=== PATIENT | male | born 1970 | race Caucasian/White ===

== ENCOUNTER 2021-03-21 09:26 | Emergency (ER) | payer BC, SELFPAY ==
[2021-03-21 09:37] VITALS: BP 129/85; PULSE 65; RESP 15; TEMP 36.8; O2SAT 98
--- NOTE | 2021-03-21 10:00 | DI.RAD_ITS ---
Exam(s) XR SHOULDER RT COMPLETE 2+V EXAM: XR SHOULDER RT COMPLETE 2+V CLINICAL HISTORY: pain. TECHNIQUE: 2D digital imaging was performed. COMPARISON: No exams were available for comparison FINDINGS: BONES: No acute fracture is present. No bony destructive lesion is seen. JOINTS: No dislocation present.Mild periarticular spurring glenohumeral joint and acromioclavicular j oint. SOFT TISSUE: Normal. IMPRESSION: Mild degenerative changes. DATA REPOSITORY: RADIATION DOSE DELIVERED:
--- NOTE | 2021-03-21 10:05 | W.ED.GENAD ---
Discharge Plan Disposition Patient Disposition: HOME Condition: Stable Discharge Details Clinical Impression: Shoulder pain Primary Care Provider: Joe Larsen ED Provider: Manuel Enriquez Home Meds and New Rx's Prescriptions: New naproxen [Naprosyn] 500 mg tablet 500 mg PO BID PRNQty: 10 RF: 0 Continued hydromorphone 2 mg Tablet 2 mg PO Q6H PRNRF: 0 Remicade 100 mg Recon Soln IV Q30D RF: 0 Discharge Instructions Instructions: Shoulder Pain (ED) Additional Instructions: X-ray reveals mild degenerative changes, no acute disease process. Naprosyn as directed. Wear sling as needed, advance activity as tolerated. Be sure to do passive range of motion at least 4 times daily to avoid a frozen shoulder. Cool and/or warm compresses every 2 hours for 20 minutes. Please watch for new or worsening symptoms and return to the ER for any concerns. Please contact the office with Dr. Hess on Tuesday during business hours to discuss your ongoing symptoms and set up outpatient reevaluation. Referrals: Barrera Hess MD [ [facility] STAFF PHYSICIAN] - Medical Decision Making 51-year-old gentleman, [id number], presenting for right shoulder pain over the past 2 weeks after heavy lifting. Neuro, vascular, tendon intact. Patient appears well, nontoxic, afebrile. Examination is certainly consistent with musculoskeletal discomfort. Examination is guarded, makes full assessment difficult. He does have diffuse discomfort across the shoulder worse over the superior and lateral aspect. Differential includes but not excluded to bursitis, calcific tendinitis, internal derangement, rotator cuff tear, etc. Extremely low suspicion for dislocation, acute fracture, DVT, septic joint, etc. Will obtain x-ray and reassess in the meantime will give 60 IM Toradol X-ray reveals only mild degenerative changes, no fracture or dislocation Discussed x-ray findings with patient. Mild relief with Toradol. Discussed options, will apply sling. Patient was instructed with passive range of motion to avoid a frozen shoulder. Will provide prescription for anti-inflammatory therapy. Will provide orthopedic referral. Standard discharge and return precautions given This documentation was generated using DigiFitation system, please disregard any oddities of phrase or misspellings. Imaging Data Radiologic Study: Attestation: I personally reviewed and interpreted this imaging study as follows: Imaging: X-Ray Radiologist's impression: PROCEDURE INFORMATION: Exam: XR Right Shoulder Exam date and time: 03/21/2021 10:06 AM Age: 51 years old Clinical indication: Other: Pain; Patient HX: Patient states no known trauma TECHNIQUE: Imaging protocol: XR Right shoulder. Views: 2 or more views. COMPARISON: No relevant images were readily available for comparison purposes. FINDINGS: Bones/joints: At most mild degeneration of the glenohumeral joint. No acute fracture or dislocation. Soft tissues: unremarkable soft tissues. IMPRESSION: At most mild degeneration of the glenohumeral joint without acute findings. HPI General Mode of arrival: ambulatory. Date/Time Provider Initiated Documentation: 03/21/21 09:28. Limitations to Documentation: no limitations. Information obtained by: patient. HPI Narrative: This is a 51-year-old gentleman, [id number], past medical history of Crohn's disease, anal fissure, presenting to the ER complaining of 1-2-week history of right shoulder pain. Patient states that he has a very high pain tolerance, denies any obvious injury but was lifting multiple heavy objects the day before he noticed his pain began. He states initially lidocaine patches were helping but now his pain has increased over the past 24-48 hours with pain that shoots down his entire arm, tingling, mild swelling, and limited range of motion. Patient took hydromorphone without significant relief. He denies neck pain, true numbness, history of DVT or PE, chest pain, shortness of breath, back pain. Patient reports pain is moderate at rest worse with movement. Related Data Home Medications Medication Instructions Recorded Confirmed Remicade mg IV Q30D 03/21/21 hydromorphone 2 mg PO Q6H PRN 03/21/21 03/21/21 naproxen [Naprosyn] 500 mg PO BID PRN #10 tab 03/21/21 Previous Rx's Medication Instructions Recorded naproxen [Naprosyn] 500 mg PO BID PRN #10 tab 03/21/21 Allergies Allergy/AdvReac Type Severity Reaction Status Date / Time No Known Allergies Allergy Unverified 03/21/21 09:45 General Stated Complaint: Orthopedic ROCAEL: 3 Review of Systems Constitutional Constitutional: Denies fever(s) and Denies headache(s) ENT Ears, Nose, Mouth, and Throat: Denies headache(s) and Denies neck pain Cardiovascular Cardiovascular: Denies chest pain and Denies dyspnea Respiratory Respiratory: Denies cough and Denies dyspnea Gastrointestinal Gastrointestinal: Denies abdominal pain, Denies nausea and Denies vomiting Musculoskeletal Musculoskeletal: Denies deformity, Reports arthralgias, Denies neck pain, Denies numbness, Reports stiffness and Reports tingling Integumentary/Breasts Skin/Breast: Denies rash Neurologic Neurologic: Denies headache(s), Denies numbness and Reports tingling [facility] Social History Smoking/Tobacco Use Status: Current every day Smoking risk assessment performed?: Yes Alcohol Intake: current Alcohol Intake frequency: a few times a week Alcohol type: beer, wine and hard liquor Drug use: Never Substance use type: does not use Do you feel safe at home: Yes Do you feel safe in your relationship?: Yes Exam Const General: cooperative, healthy appearing, comfortable and no acute distress Orientation: alert and awake [facility] Head: normal to inspection, normocephalic and atraumatic Eyes General: appearance normal, both eyes and all related structures Conjunctivae: conjunctivae normal Neck Neck: normal visual inspection, full ROM, trachea midline, supple and nontender Resp Effort & Inspection: normal respiratory effort and able to speak in complete sentences Auscultation: clear to auscultation bilaterally Cardio Rate: regular rate Rhythm: regular rhythm Back/Spine/Pelvis Back: no CVA tenderness and No back tenderness Skin General skin exam: no rashes or lesions noted Neuro General: patient alert, patient awake, moves all extremities and no focal motor deficits Cognition: normal cognition Speech: speech normal Gait: normal gait Motor: muscle tone normal throughout Sensory Exam: no sensory deficits noted Extrem General: normal to inspection and capillary refill normal Other: Right shoulder normal inspection. No obvious swelling, erythema or ecchymosis. There is diffuse superior and lateral discomfort. Shoulder is held in adduction. Limited range of motion in all directions secondary to increased discomfort. Normal radial pulse, normal capillary refill. Bicep, elbow, forearm, hand and wrist unremarkable. 5 out of 5 strength. Neuro, vascular, tendon intact. Psych Appearance: grossly normal Mental Status: mental status grossly normal Course Vital Signs Vital signs: Vital Signs Temperature 36.8 C 03/21/21 09:37 Pulse 65 09/04/21 09:37 Respiratory Rate 15 03/21/21 09:37 Blood Pressure 129/85 03/21/21 09:37 Pulse Oximetry 98 03/21/21 09:37 Temperature 36.8 C 03/21/21 09:37 Temperature Source Temporal Artery Scan 03/21/21 09:37 Pulse 65 03/21/21 09:37 Respiratory Rate 15 03/21/21 09:37 Respiratory Effort Non-Labored 03/21/21 09:43 Blood Pressure 129/85 03/21/21 09:37 Blood Pressure Position Sitting 03/21/21 09:37 Pulse Oximetry 98 03/21/21 09:37 Oxygen Delivery Method Room Air 03/21/21 09:37 Oxygen Flow Rate 0 03/21/21 09:37 Pain Level 10 03/21/21 09:48
[2021-03-21] MEDS: Ketorolac 60 MG/2 ML VIAL IM (10:19)
--- NOTE | 2021-03-21 10:49 | DI.[facility]_ITS ---
PROCEDURE INFORMATION: Exam: XR Right Shoulder Exam date and time: 03/21/2021 10:06 AM Age: 51 years old Clinical indication: Other: Pain; Patient HX: Patient states no known trauma TECHNIQUE: Imaging protocol: XR Right shoulder. Views: 2 or more views. COMPARISON: No relevant images were readily available for comparison purposes. FINDINGS: Bones/joints: At most mild degeneration of the glenohumeral joint. No acute fracture or dislocation. Soft tissues: unremarkable soft tissues. IMPRESSION: At most mild degeneration of the glenohumeral joint without acute findings. Dictated and Authenticated by: Simón Kendall MD. Ordering:JUAN A Jackson MD
== END 2021-03-21 11:19 | disposition home or self-care (01) ==
PROVIDERS: Emergency Provider Physician Assistant; PCP Internal Medicine
DX: M25.511 Pain in right shoulder (principal)
CPT/HCPCS: 96372; 99284; 73030; 99283; J1885

== ENCOUNTER 2024-12-31 21:43 | Inpatient (IN) | payer BC, SELFPAY ==
[2024-12-31] VITALS (9 sets, daily range): BP systolic 135–147; BP diastolic 76–111; PULSE 63–82; RESP 20; TEMP 36.8; O2SAT 94–97
--- NOTE | 2024-12-31 22:15 | DI.CT_ITS ---
Exam(s) CT THORAX ABD/PEL CTA EXAM: CT THORAX ABD/PEL CTA CLINICAL HISTORY: eval for dissection, severe upper abd pain to back. TECHNIQUE: Imaging Protocol: Axial CT angiography was performed with multi- slice acquisition and multi-planar and/or 3D reconstructions. Lung Computer Aided Detection (CAD) was utilized. CONTRAST MATERIAL: Intravenous: Omnipaque 350 contrast volume:100 mL Oral: No COMPARISON: No exams were available for comparison FINDINGS: CHEST: Tracheobronchial tree: Patent where visualized. There is no evidence of bronchiectasis. Pulmonary parenchyma: There is a calcified granuloma in the left lower lobe. There is no focal consolidation. Atelectatic changes are seen in the dependent portions of the lungs. There are no suspicious pulmonary nodules. No architectural distortion. Pulmonary Arteries: No evidence of filling defect to suggest pulmonary emboli. Mediastinum and Brianne: No dominant adenopathy or fluid collection. The esophagus is unremarkable. Visualized thyroid: Unremarkable. Pleura: No effusion or pneumothorax. Heart: The heart is not dilated. No coronary artery calcifications are seen. No pericardial effusion. Aorta: Thoracic aorta non-dilated. There is no evidence of dissection. Soft Tissues: Unremarkable. Bones: Within normal limits for the patient's age.There is an area of sclerosis seen in the medial aspect of the left iliac bone. There is also sclerosis seen the left 4th rib. ABDOMEN AND PELVIS: Abdomen: Celiac axis/mesenteric arteries: No evidence of occlusion or significant stenosis. Renal Arteries: No evidence of occlusion or significant stenosis. Minimal atherosclerotic calcification at the origin of the left renal artery. Aorta: No evidence of occlusion or significant stenosis. No aneurysm or dissection. Mild atherosclerotic calcification. Pelvis: Iliac Arteries: No evidence of occlusion or significant stenosis. Mild atherosclerotic calcification is present. Common Femoral Arteries: No evidence of occlusion or significant stenosis. Mild atherosclerotic calcification is present. ABDOMEN: Liver: Normal density. No measurable mass. Portal, superior mesenteric and splenic veins: Unremarkable. Gallbladder and Biliary Tract: No radiodense calculus or dilation. Pancreas: Normal density, no abnormal calcifications or inflammatory process. Spleen: Normal. Adrenals: No masses seen. Kidneys: Normal size, contour and axis. No radiodense stones or obstructive uropathy. There is a 1.9 cm simple cyst in the right kidney. No follow-up is recommended. Bowel: There is diverticulosis seen in the colon without evidence of acute diverticulitis. There is dilatation of the small bowel with air-fluid levels to the level of the distal ileum. There is also distention of the stomach. The terminal ileum is of normal caliber. There is question of mild wall thickening at the transition. The colon is of normal caliber. No evidence of appendicitis is seen. There is no pneumatosis. Peritoneal Cavity: No ascites, collection or mesenteric inflammatory response. No free air. Lymph Nodes: Within normal limits. Bones: Within normal limits for the patient's age. Soft Tissues: There are small bilateral fat containing inguinal hernias. PELVIS: Bladder: The bladder is incompletely distended. There is apparent thickening of the wall of the urinary bladder. This may be due to incomplete distension but finding such as cystitis or chronic bladder outlet obstruction cannot be excluded. Please correlate clinically. Reproductive Organs: Unremarkable as visualized. Lymph Nodes: Within normal limits. Bones: Within normal limits for the patient's age. IMPRESSION: 1. Findings consistent with a small-bowel obstruction. The transition point is just proximal to the terminal ileum in the right lower quadrant. 2. No evidence of a pulmonary embolism, thoracic aortic aneurysm or dissection. 3. No acute pulmonary process. 4. No evidence of an abdominal aortic aneurysm or dissection. 5. Areas of sclerosis involving a left rib and the left iliac bone. Please correlate with patient's history. A bone scan may should be considered for further evaluation. 6. The preliminary [facility] report was reviewed. Unexpected findings RADIATION DOSE DELIVERED: 1,271.95mGy.cm Total DLP DATA REPOSITORY: All CT scans at this facility are submitted to the National Radiology Data Registry (NRDR) Dose Index Registry (DIR) with the [employer] (A[employer]). RADIATION OPTIMIZATION: All CT scans at this facility use at least one of these dose optimization techniques: automated exposure control; mA and/or kV adjustment per patient size (includes targeted exams where dose is matched to clinical indication); or iterative reconstruction.
[2024-12-31 22:36] LABS: Abs Immature Grans 0.06 10^3/uL (0.0-0.06); Absolute Basophil Count 0.06 10^3/uL (0.0-0.2); Absolute Lymphocyte Count 2.13 10^3/uL (1.2-3.4); Absolute Monocyte Count 0.96 10^3/uL (0.1-0.8); Absolute Neutrophil Count 8.67 10^3/uL (1.2-6.7); Basophils % 0.5 %; Eosinophils % 0.8 %; Immature Grans % 0.5 %; Lymphocytes % 17.8 %; MCH 30.1 pg (27.0-33.0); MCHC 33.3 % (32.0-36.0); MCV 90 fL (80-95); MPV 10.7 fL (8.0-11.0); Neutrophils % 72.4 %; Platelet Count 238 10^3/uL (130-400); RBC 4.98 10^6/uL (4.36-5.78); RDW 12.6 % (11.8-14.1); RDW-SD 41.6 fL; WBC 11.97 10^3/uL (4.4-10.8)
[2024-12-31 22:45] LABS: PTT Activated 25.3 sec (20.6-30.2); Prothrombin Time 9.6 sec (9.1-11.1)
[2024-12-31] MEDS: Normal Saline Flush 10 ML SYR IVP (22:49)
[2024-12-31 22:50] LABS: ALT 26 U/L (16-63); AST 13 U/L (15-37); Albumin 3.9 g/dL (3.4-5.0); Alkaline Phosphatase 94 U/L (46-116); Anion Gap 9.4 mmol/L (3-11); BUN 19 mg/dL (7-18); Bilirubin, Total 0.3 mg/dL (0.2-1.0); CO2 25.6 mmol/L (21.0-32.0); Calcium 9.4 mg/dL (8.5-10.1); Chloride 101 mmol/L (98-107); Glucose 118 mg/dL (74-106); Lipase 17 U/L (<78); Potassium 4.3 mmol/L (3.5-5.1); Sodium 136 mmol/L (136-145); Total Protein 8.7 g/dL (6.4-8.2)
[2024-12-31] MEDS: Normal Saline - Diluent 50 ML VIAL IJ (22:50)
[2024-12-31] MEDS: Omnipaque 350 MG/ML 100 ML BTL IJ (22:50)
[2024-12-31 22:51] LABS: Lactate 1.3 mmol/L (<or=2.0)
[2024-12-31] MEDS: Ondansetron 4 MG/2 ML VIAL IVP (23:01)
[2024-12-31] MEDS: fentaNYL 100 MCG/2 ML VIAL 50 MCG IVP (23:01)
[2025-01-01] VITALS (21 sets, daily range): BP systolic 124–147; BP diastolic 78–89; PULSE 62–86; RESP 16–18; TEMP 36.8–37.4; O2SAT 94–98
--- NOTE | 2025-01-01 00:22 | W.ED.GENAD ---
Discharge Plan Disposition Patient Disposition: Admit to [facility] Condition: Serious Discharge Details Clinical Impression: Partial obstruction of small intestine Primary Care Provider: Joe Larsen ED Provider: Key Cartagena Home Meds and New Rx's Prescriptions: No Action infliximab [Remicade] 100 mg Recon Soln 1,100 mg IV Q30D naproxen [Naprosyn] 500 mg tablet 500 mg PO BID PRNQty: 10 0RF HPI General Date/Time Provider Initiated Documentation: 12/31/24 22:13. Limitations to Documentation: no limitations. Information obtained by: patient and family. HPI Narrative: 54yo M with hx of Crohns presenting with severe upper abdominal pain radiating into his back. Symptoms started around 9pm this evening and have been worsening. Pain is sharp, stabbing, and comes in waves. Nausea, vomitted x 1 nonbloody nonbilious. Normal bowel movement earlier today. No numbness, tingling, or weakness to his upper extremities. No chest pain or shortness of breath. Otherwise in his usual state of health with no fevers, chills, rash, dysuria, hematuria, or other concerns. Related Data Home Medications ?Medication ?Instructions ?Recorded ?Confirmed infliximab 100 mg intravenous 1,100 mg IV Q30D 03/21/21 12/31/24 solution (Remicade) naproxen 500 mg tablet (Naprosyn) 500 mg PO BID PRN #10 tabs 03/21/21 12/31/24 Previous Rx's ?Medication ?Instructions ?Recorded naproxen 500 mg tablet (Naprosyn) 500 mg PO BID PRN #10 tabs 03/21/21 Allergies Allergy/AdvReac Type Severity Reaction Status Date / Time No Known Allergies Allergy Unverified 12/31/24 21:52 General Stated Complaint: Abd Prob ROCAEL: 3 Review of Systems Narrative: see HPI Exam Narrative Exam Narrative: General: Alert, distressed Head: Normocephalic, atraumatic Neck: Trachea midline, ?Neck supple. ENT: ?MMM.? Cardiac: ?RRR, no murmurs appreciated Resp: No respiratory distress. CTAB. Abd: ?Soft, protruberent, diffusely tender to palpation worst in upper abdomen. : ?No suprapubic tenderness. No CVA tenderness. Extremities: No peripheral edema. Neurologic: GCS 15. ? Moves all extremities freely against gravity Course Vital Signs Vital signs: Vital Signs Temperature 36.8 C 12/31/24 21:47 Pulse 82 12/31/24 21:47 Respiratory Rate 12/31/24 21:47 Blood Pressure 147/111 H 12/31/24 21:47 Pulse Oximetry 96 12/31/24 21:47 Temperature 36.8 C 12/31/24 21:51 Pulse 82 12/31/24 21:51 Respiratory Rate 20 12/31/24 21:51 Blood Pressure 147/111 H 12/31/24 21:51 Blood Pressure Position Sitting 12/31/24 21:51 Pulse Oximetry 96 12/31/24 21:51 Oxygen Delivery Method Room Air 12/31/24 21:51 Oxygen Flow Rate 0 12/31/24 21:51 Pain Level 12/31/24 23:11 Lab/Test Results Lab/Test Results: Laboratory Tests Range/Units 12/31/24 12/31/24 12/31/24 22:05 22:05 22:25 WBC (4.4-10.8) 10^3/uL 11.97 H RBC (4.36-5.78) 10^6/uL 4.98 Hgb (13.5-17.5) g/dL 15.0 Hct (40.0-50.0) % 45.0 MCV (80-95) fL 90 MCH (27.0-33.0) pg 30.1 MCHC (32.0-36.0) % 33.3 RDW (11.8-14.1) % 12.6 Plt Count (130-400) 10^3/uL 238 MPV (8.0-11.0) fL 10.7 Immature Gran % % 0.5 Neutrophils % % 72.4 Lymphocytes % % 17.8 Monocytes % % 8.0 Eosinophils % % 0.8 Basophils % % 0.5 Nucleated RBC % (0.0-0.3) % 0.0 Absolute Neutrophils (1.2-6.7) 10^3/uL 8.67 H Absolute Lymphocytes (1.2-3.4) 10^3/uL 2.13 Absolute Monocytes (0.1-0.8) 10^3/uL 0.96 H Absolute Eosinophils (0.0-0.7) 10^3/uL 0.10 Absolute Basophils (0.0-0.2) 10^3/uL 0.06 PT (9.1-11.1) sec 9.6 INR (0.9-1.1) 1.0 APTT (20.6-30.2) sec 25.3 VBG Lactate (<or=2.0) mmol/L 1.3 Sodium (136-145) mmol/L 136 Potassium (3.5-5.1) mmol/L 4.3 Chloride (98-107) mmol/L 101 Carbon Dioxide (21.0-32.0) mmol/L 25.6 Anion Gap (3-11) mmol/L 9.4 BUN (7-18) mg/dL 19 H Creatinine (0.70-1.30) mg/dL 1.0 Est GFR (CKD-EPI 2020) (mL/min/1.73m2) 90.00 Glucose (74-106) mg/dL 118 H Calcium (8.5-10.1) mg/dL 9.4 Magnesium (1.8-2.4) mg/dL 2.0 Cancelled Total Bilirubin (0.2-1.0) mg/dL 0.3 AST (15-37) U/L 13 L ALT (16-63) U/L 26 Alkaline Phosphatase (46-116) U/L 94 Total Protein (6.4-8.2) g/dL 8.7 H Albumin (3.4-5.0) g/dL 3.9 Lipase (<78) U/L 17 Medical Decision Making 54yo M with hx Crohn's, on infusion therapy, presetning for severe upper abdominal pain radiating into his back. Emesis x1. Vital signs reassuring on arrival. Diffuse abdominal tenderness on exam, severe in the upper abdomen, no rebound or guarding. Given fentanyl and zofran for symptoms while awaiting results of workup -CBC with mild leukocytosis at 11, CMP with no actionable abnormalities, Mg normal, coags normal, lactate reassuring at 1.3, lipase not suggestive of pancreatitis. -EKG SR, no ST segment or T wave abnormalities to suggest occlusive MN -CTA independently reviewed, no aortic dissection or aneurysm on my view; discussed with [facility] reading radiologist and agree with read below with partial small bowel obstruction. NG tube ordered and pt discussed with on-call surgeon Raine who agrees with medicine admission. Discussed with [facility] hospitalist who accepts patient for further workup and management. Awaiting admission orders and transfer to the floor. Imaging Data Radiologic Study: Imaging: CT Scan Radiologist's impression: IMPRESSION: 1. No evidence of pulmonary embolus. 2. No evidence of aortic aneurysm, dissection or penetrating ulcer. 3. Multiple moderately distended loops of small bowel in the mid abdomen with air-fluid levels consistent with partial small bowel obstruction. The point of transition is in the distal ileum. 4. Additional non emergent findings are stated in the body of the report. Lab Data Lab results reviewed: Yes I reviewed the patient's lab results. Labs: Laboratory Tests Range/Units 12/31/24 12/31/24 12/31/24 22:05 22:05 22:25 WBC (4.4-10.8) 10^3/uL 11.97 H RBC (4.36-5.78) 10^6/uL 4.98 Hgb (13.5-17.5) g/dL 15.0 Hct (40.0-50.0) % 45.0 MCV (80-95) fL 90 MCH (27.0-33.0) pg 30.1 MCHC (32.0-36.0) % 33.3 RDW (11.8-14.1) % 12.6 Plt Count (130-400) 10^3/uL 238 MPV (8.0-11.0) fL 10.7 Immature Gran % % 0.5 Neutrophils % % 72.4 Lymphocytes % % 17.8 Monocytes % % 8.0 Eosinophils % % 0.8 Basophils % % 0.5 Nucleated RBC % (0.0-0.3) % 0.0 Absolute Neutrophils (1.2-6.7) 10^3/uL 8.67 H Absolute Lymphocytes (1.2-3.4) 10^3/uL 2.13 Absolute Monocytes (0.1-0.8) 10^3/uL 0.96 H Absolute Eosinophils (0.0-0.7) 10^3/uL 0.10 Absolute Basophils (0.0-0.2) 10^3/uL 0.06 PT (9.1-11.1) sec 9.6 INR (0.9-1.1) 1.0 APTT (20.6-30.2) sec 25.3 VBG Lactate (<or=2.0) mmol/L 1.3 Sodium (136-145) mmol/L 136 Potassium (3.5-5.1) mmol/L 4.3 Chloride (98-107) mmol/L 101 Carbon Dioxide (21.0-32.0) mmol/L 25.6 Anion Gap (3-11) mmol/L 9.4 BUN (7-18) mg/dL 19 H Creatinine (0.70-1.30) mg/dL 1.0 Est GFR (CKD-EPI 2020) (mL/min/1.73m2) 90.00 Glucose (74-106) mg/dL 118 H Calcium (8.5-10.1) mg/dL 9.4 Magnesium (1.8-2.4) mg/dL 2.0 Cancelled Total Bilirubin (0.2-1.0) mg/dL 0.3 AST (15-37) U/L 13 L ALT (16-63) U/L 26 Alkaline Phosphatase (46-116) U/L 94 Total Protein (6.4-8.2) g/dL 8.7 H Albumin (3.4-5.0) g/dL 3.9 Lipase (<78) U/L 17 PFSH All Active Problems (Updated 01/01/25 @ 01:30 by Key Cartagena MD) Partial obstruction of small intestine (Acute) Rotator cuff tear, right (Acute) Shoulder pain (Acute) Social History Smoking/Tobacco Use Status: Current every day Smoking risk assessment performed?: Yes Alcohol Intake: current Alcohol Intake frequency: a few times a week Alcohol type: beer, wine and hard liquor Drug use: Never Substance use type: does not use Do you feel safe at home: Yes Do you feel safe in your relationship?: Yes PAWSS Have you Been Recently Intoxicated or Drunk Within the Last 30 days?: No Have you Ever Experienced Previous Episodes of Alcohol Withdrawal?: No Have you ever Experienced Withdrawal Seizures?: No Have you ever Experienced Delirium Tremens(DT)s?: No Have you ever undergone Alcohol Rehabilitation Treatment (i.e, inpt ot outpatient treatment programs)?: No Have you ever Experienced Blackouts?: No Have you ever Combined Alcohol with other Downers within the last 90 days?: No Have you ever Combined Alcohol with any other Substance of Abuse during the last 90 days?: No Positive Blood Alcohol level on Presentation? [PCS.BAL]: No Evidence of Increased Autonomic Activity (i.e. HR>120, tremor, sweating, agitation, nausea)?: No Result: 0
--- NOTE | 2025-01-01 00:32 | DI.VRAD_ITS ---
PROCEDURE INFORMATION: Exam: CTA Chest With Contrast CTA Abdomen and Pelvis With Contrast Exam date and time: 12/31/2024 10:47 PM Age: 54 years old Clinical indication: Abdominal pain; Localized; Eval for dissection, severe upper abd pain to back TECHNIQUE: Imaging protocol: Computed tomographic angiography of the chest with contrast. Exam focused on the arteries. Computed tomographic angiography of the abdomen and pelvis with contrast. Exam focused on the arteries. 3D rendering (Not supervised by radiologist): MIP and/or 3D reconstructed images were created by the technologist. Radiation optimization: All CT scans at this facility use at least one of these dose optimization techniques: automated exposure control; mA and/or kV adjustment per patient size (includes targeted exams where dose is matched to clinical indication); or iterative reconstruction. Contrast material: OMNIPAQUE 350; Contrast volume: 100 ml; Contrast route: INTRAVENOUS (IV); COMPARISON: CR XR SHOULDER RT COMPLETE 2+V 10/24/2020 10:24 FINDINGS: VASCULATURE: Pulmonary arteries: Normal. No pulmonary emboli. Aorta: No aortic aneurysm. No aortic dissection or penetrating ulcer. Celiac trunk and mesenteric arteries: No occlusion or significant stenosis. Renal arteries: Mild stenosis at the origin of the left main renal artery. Widely patent right main renal artery. Right iliac arteries: Mild stenosis. Left iliac arteries: Mild stenosis. CHEST: Lungs: No consolidation. No masses. Mild bibasilar atelectatic changes. The Pleural spaces: Unremarkable. No pneumothorax. No pleural effusion. Heart: Unremarkable. No cardiomegaly. No pericardial effusion. ABDOMEN AND PELVIS: Liver: No mass. Gallbladder and biliary ducts: Unremarkable. No calcified stones. No ductal dilation. Pancreas: Unremarkable. No mass. No ductal dilation. Spleen: Unremarkable. No splenomegaly. Adrenal glands: Unremarkable. No mass. Kidneys and ureters: Unremarkable. No solid mass. No hydronephrosis. Stomach and bowel: The stomach is mildly distended with an air-fluid level. Multiple moderately distended loops of small bowel in the mid abdomen with air-fluid levels consistent with mechanical obstruction. The point of transition is in the distal ileum (axial series 8, images 82 - 93; coronal series 12, images 53- 61). There is some gas and stool throughout the colon without distension. There is mild diverticulosis of the distal colon without acute diverticulitis. Appendix: No evidence of appendicitis. Intraperitoneal space: Unremarkable. No free air. No significant fluid collection. Urinary bladder: Unremarkable. No mass. Reproductive: There are small bilateral nonobstructing inguinal hernias containing adipose tissue. Lymph nodes: Nonenlarged common nonspecific mesenteric lymph nodes in the right hemipelvis the. Bones/joints: No acute fracture. Posterior osteophytes at L3-L4, L4-L5 and L5-S1 with moderate left neural foraminal narrowing. At L3-L4, there is a central posterior disc osteophyte complex without severe central spinal canal stenosis. Osteoarthritis of both hips. Soft tissues: There are small bilateral nonobstructing inguinal hernias containing adipose tissue. IMPRESSION: 1. No evidence of pulmonary embolus. 2. No evidence of aortic aneurysm, dissection or penetrating ulcer. 3. Multiple moderately distended loops of small bowel in the mid abdomen with air-fluid levels consistent with partial small bowel obstruction. The point of transition is in the distal ileum. 4. Additional non emergent findings are stated in the body of the report. The bladder demonstrates diffuse wall thickening. Impression new. Bladder wall thickening suggesting chronic outlet obstruction. THIS REPORT CONTAINS FINDINGS THAT MAY BE CRITICAL TO PATIENT CARE. The findings were verbally communicated via telephone conference with EL MCCALLUM at 12:27 AM EDT on 01/01/2025. The findings were acknowledged and understood. Dictated and Authenticated by: Adrián Goldsmith MD. Orderin Osiel Mackey MD
--- NOTE | 2025-01-01 00:59 | DI.RAD_ITS ---
Exam(s) XR PORTABLE CHEST AP POST LINE EXAM: XR PORTABLE CHEST AP POST LINE CLINICAL HISTORY: post line (ng) TECHNIQUE: 2D digital imaging was performed of the chest. One image was obtained. An AP view was obtained. COMPARISON: No exams were available for comparison FINDINGS: The lung apex is not included on this examination. MEDIASTINUM: Normal. HEART: Normal. PULMONARY VASCULATURE: Normal. LUNGS: Clear. PLEURAL SPACE: No pleural effusion or pneumothorax. BONE:Within normal limits for the patient's age. OTHER FINDINGS:There is an enteric tube in place. The tip is in good position in the stomach. There are dilated loops of small bowel in the abdomen suggesting small bowel obstruction. IMPRESSION: The tip of the enteric tube is in appropriate position in the stomach. DATA REPOSITORY: RADIATION DOSE DELIVERED:
[2025-01-01] MEDS: fentaNYL 100 MCG/2 ML VIAL 50 MCG IVP (01:12)
[2025-01-01] MEDS: Normal Saline 1,000 ML 150 ML IV (01:13)
--- NOTE | 2025-01-01 01:15 | RT.EKG_ITS ---
APPROVED REPORT Exam: Resting ECG Reason for Exam: upper abdominal pain Patient Location: E HR:63 bpm ECG Measurements Heart Rate 63 AXIS WV 167 P 38 QRSd 100 QRS 34 QT 386 T 29 QTc 396 Conclusion Sinus rhythm...normal P axis, V-rate 60- 99 ST elev, probable normal early repol pattern...ST elevation, age<[address] segment or T wave abnormalities to suggest occlusive [place]
--- NOTE | 2025-01-01 02:01 | W.PM.HP.N ---
Date of service: 01/01/25 Time of Service: 02:01 Assessment and Plan Assessment and plan (1) Partial obstruction of small intestine: Status: Acute Assessment and plan: 54 yo male with hx of Crohn's, multiple laparoscopic procedures per his report, no open abdominal surgery, now with partial SBO although CT does describe a transition point, he has no bowel sounds and his abdomen is quite firm. NG placed in ED with 400-500 cc output. ED provider discussed the case with general surgery who reportedly are aware of his history and recommended admission to hospitalist service. -will of course be NPO with maintenance IVF and continue NG -does not take any routine prescription medications on a daily basis -leukocytosis likely related to obstruction with no other indication of infection including no mention of colitis on CT, repeat CBC this AM -no pharmacologic VTE prophylaxis as may need procedure History of Present Illness Narrative: 54 yo male with history of Crohn's, longstanding GI issues with multiple admissions related to IBD per his report including intra-abdominal fistulas. He presented to the ED with severe abdominal pain and vomiting today. He is in the process of having his care transferred from [facility] to [facility] as he has been admitted to the hospital many times with ongoing complications and felt [facility] would better manage his IBD. He has been evaluated at and is in contact with the GI doctors there, they apparently have been directing his remicade infusions and increased the dose on his last infusion which was this past Tuesday. Within a few hours he had significant abdominal pain, no vomting, his belly felt tight, but this passed within 4-5 hours and he felt well over the weekend. He was feeling normal Tuesday morning, had a normal BM and went to work. He had a breakfast sandwich late AM. Around 9:30-10 he started to have severe pain and his belly again felt, tight, to the point where he did not want to eat lunch. After work the pain started to get worse and ultimately he started vomiting, that prompted him to seek care in the ED. No blood in stool or vomit. Not passing gas since arriving in the ED. No fever and he has not been ill in any other way. All other ROS is negative. PFSH All Active Problems (Updated 01/01/25 @ 01:30 by Key Cartagena MD) Partial obstruction of small intestine (Acute) Rotator cuff tear, right (Acute) Shoulder pain (Acute) Social History Smoking/Tobacco Use Status: Current every day Smoking risk assessment performed?: Yes Alcohol Intake: current Alcohol Intake frequency: a few times a week Alcohol type: beer, wine and hard liquor Drug use: Never Substance use type: does not use Do you feel safe at home: Yes Do you feel safe in your relationship?: Yes Meds Allergies and Home Medications Allergies Allergy/AdvReac Type Severity Reaction Status Date / Time No Known Allergies Allergy Unverified 12/31/24 21:52 Home Medications ?Medication ?Instructions ?Recorded ?Confirmed ?Type infliximab 100 mg intravenous 1,100 mg IV Q30D 03/21/21 12/31/24 History solution (Remicade) naproxen 500 mg tablet (Naprosyn) 500 mg PO BID PRN #10 tabs 03/21/21 12/31/24 Rx Exam Const General: healthy appearing Resp Auscultation: clear to auscultation bilaterally Cardio Rate: regular rate Rhythm: regular rhythm GI Palpation: rigid Auscultation: absent bowel sounds Neuro General: no focal motor deficits Psych Mental Status: mental status grossly normal Results Labs 12/31/24 22:05 12/31/24 22:05 Labs: Laboratory Results - last 24 hr 12/31/24 12/31/24 12/31/24 22:05 22:05 22:25 WBC 11.97 H RBC 4.98 Hgb 15.0 Hct 45.0 MCV 90 MCH 30.1 MCHC 33.3 RDW 12.6 Plt Count 238 MPV 10.7 Immature Gran % 0.5 Neutrophils % 72.4 Lymphocytes % 17.8 Monocytes % 8.0 Eosinophils % 0.8 Basophils % 0.5 Nucleated RBC % 0.0 Absolute Neutrophils 8.67 H Absolute Lymphocytes 2.13 Absolute Monocytes 0.96 H Absolute Eosinophils 0.10 Absolute Basophils 0.06 PT 9.6 INR 1.0 APTT 25.3 VBG Lactate 1.3 Sodium 136 Potassium 4.3 Chloride 101 Carbon Dioxide 25.6 Anion Gap 9.4 BUN 19 H Creatinine 1.0 Est GFR (CKD-EPI 2020) 90.00 Glucose 118 H Calcium 9.4 Magnesium 2.0 Cancelled Total Bilirubin 0.3 AST 13 L ALT 26 Alkaline Phosphatase 94 Total Protein 8.7 H Albumin 3.9 Lipase 17 Last Vital Signs Temp 36.8 C 12/31/24 21:51 Pulse 73 01/01/25 01:30 Resp 20 12/31/24 21:51 BP 144/85 H 01/01/25 00:31 Pulse Ox 96 01/01/25 01:30 PAWSS Have you Been Recently Intoxicated or Drunk Within the Last 30 days?: No Have you Ever Experienced Previous Episodes of Alcohol Withdrawal?: No Have you ever Experienced Withdrawal Seizures?: No Have you ever Experienced Delirium Tremens(DT)s?: No Have you ever undergone Alcohol Rehabilitation Treatment (i.e, inpt ot outpatient treatment programs)?: No Have you ever Experienced Blackouts?: No Have you ever Combined Alcohol with other Downers within the last 90 days?: No Have you ever Combined Alcohol with any other Substance of Abuse during the last 90 days?: No Positive Blood Alcohol level on Presentation? [PCS.BAL]: No Evidence of Increased Autonomic Activity (i.e. HR>120, tremor, sweating, agitation, nausea)?: No Result: 0 Time Spent Time spent with Patient: 55-74 minutes Time was spent: preparing to see the patient(eg.review tests), obtaining and/or reviewing separately otained hiistory, ordering medications,tests, procedures and indepentently interpreting results
--- NOTE | 2025-01-01 02:17 | DI.VRAD_ITS ---
PROCEDURE INFORMATION: Exam: XR Chest Exam date and time: 01/01/2025 1:14 AM Age: 54 years old Clinical indication: Device placement; Ng tube placement TECHNIQUE: Imaging protocol: Radiologic exam of the chest. Views: 1 view. COMPARISON: No relevant prior studies are available for comparison. FINDINGS: Tubes, catheters and devices: Nasogastric tube terminates in the expected location of the stomach. Gastrointestinal tract: Gaseous distension of the stomach. Multiple gas-filled dilated small bowel loops identified in the visualized abdomen. IMPRESSION: 1. Nasogastric tube as above. 2. Dilated gas-filled small bowel loops suggesting obstruction. Dictated and Authenticated by: Rufina Wong MD. Orderin Osiel Mackey MD
--- NOTE | 2025-01-01 02:19 | W.PC.ACHO ---
Registration Status: REG ER Primary Language: Preferred Language: ED Information & Data Chief Complaint Abd Prob 01/01/25 00:23 Triage Note 10 of 10 stabbing pain in 12/31/24 21:47 upper abd starting today. Hx of chrones. Ate a burger last night. Pain improved with belching. Firm upper abd. Most Recent Vital Signs Temperature 36.8 C 12/31/24 21:51 Pulse 62 01/01/25 02:10 Respiratory Rate 20 12/31/24 21:51 Blood Pressure 144/85 H 01/01/25 00:31 Blood Pressure Mean 128 01/01/25 01:01 Blood Pressure Position Sitting 12/31/24 21:51 Pulse Oximetry 94 01/01/25 02:10 Oxygen Delivery Method Room Air 12/31/24 21:51 Oxygen Flow Rate 0 12/31/24 21:51 Pain Level 10 12/31/24 23:11 Allergies No Known Allergies Allergy (Unverified 12/31/24 21:52) Active Medications Generic Name Dose Route Start Last Admin Trade Name Freq PRN Reason Stop Dose Admin Sodium Chloride 1,000 mls @ 150 mls/hr 01/01/25 00:45 01/01/25 01:13 Saline 1000ml Bag IV 150 mls/hr INFUSION CIELO Administration Iohexol 100 ml 12/31/24 23:00 12/31/24 22:50 Omnipaque 350 Mg/Ml 100 Ml Btl IJ 01/30/25 23:59 100 ml DIRECTED CIELO Administration Sodium Chloride 0 ml 12/31/24 22:49 12/31/24 22:49 Normal Saline Flush 10 Ml Syr IVP 10 ml PRN PRN Administration Sodium Chloride 50 ml 12/31/24 23:00 12/31/24 22:50 Normal Saline - Diluent 50 Ml Vial IJ 50 ml .FOR DI USE CIELO Administration IV IV Catheter Gauge [Left 18 Antecubital] Diet Orders Category Date Time Status Nothing Per Oral [DIET] Nutrition 01/01/25 01:53 Active Diagnostics 01/01/25 12/31/24 12/31/24 Range/Units 05:35 22:25 22:05 WBC Pending (4.4-10.8) 10^3/uL RBC Pending (4.36-5.78) 10^6/uL Hgb Pending (13.5-17.5) g/dL Hct Pending (40.0-50.0) % MCV Pending (80-95) fL MCH Pending (27.0-33.0) pg MCHC Pending (32.0-36.0) % RDW Pending (11.8-14.1) % Plt Count Pending (130-400) 10^3/uL MPV Pending (8.0-11.0) fL Immature Gran % Pending % Neutrophils % Pending % Lymphocytes % Pending % Monocytes % Pending % Eosinophils % Pending % Basophils % Pending % Nucleated RBC % (0.0-0.3) % Absolute Neutrophils Pending (1.2-6.7) 10^3/uL Absolute Lymphocytes Pending (1.2-3.4) 10^3/uL Absolute Monocytes Pending (0.1-0.8) 10^3/uL Absolute Eosinophils Pending (0.0-0.7) 10^3/uL Absolute Basophils Pending (0.0-0.2) 10^3/uL PT (9.1-11.1) sec INR (0.9-1.1) APTT (20.6-30.2) sec VBG Lactate 1.3 (<or=2.0) mmol/L Sodium Pending (136-145) mmol/L Potassium Pending (3.5-5.1) mmol/L Chloride Pending (98-107) mmol/L Carbon Dioxide Pending (21.0-32.0) mmol/L Anion Gap Pending (3-11) mmol/L BUN Pending (7-18) mg/dL Creatinine Pending (0.70-1.30) mg/dL Est GFR (CKD-EPI 2020) Pending (mL/min/1.73m2) Glucose Pending (74-106) mg/dL Calcium Pending (8.5-10.1) mg/dL Magnesium Cancelled (1.8-2.4) mg/dL Total Bilirubin Pending 0.3 (0.2-1.0) mg/dL AST Pending 13 L (15-37) U/L ALT Pending 26 (16-63) U/L Alkaline Phosphatase Pending 94 (46-116) U/L Total Protein Pending 8.7 H (6.4-8.2) g/dL Albumin Pending 3.9 (3.4-5.0) g/dL Lipase 17 (<78) U/L 12/31/24 Range/Units 22:05 WBC 11.97 H (4.4-10.8) 10^3/uL RBC 4.98 (4.36-5.78) 10^6/uL Hgb 15.0 (13.5-17.5) g/dL Hct 45.0 (40.0-50.0) % MCV 90 (80-95) fL MCH 30.1 (27.0-33.0) pg MCHC 33.3 (32.0-36.0) % RDW 12.6 (11.8-14.1) % Plt Count 238 (130-400) 10^3/uL MPV 10.7 (8.0-11.0) fL Immature Gran % 0.5 % Neutrophils % 72.4 % Lymphocytes % 17.8 % Monocytes % 8.0 % Eosinophils % 0.8 % Basophils % 0.5 % Nucleated RBC % 0.0 (0.0-0.3) % Absolute Neutrophils 8.67 H (1.2-6.7) 10^3/uL Absolute Lymphocytes 2.13 (1.2-3.4) 10^3/uL Absolute Monocytes 0.96 H (0.1-0.8) 10^3/uL Absolute Eosinophils 0.10 (0.0-0.7) 10^3/uL Absolute Basophils 0.06 (0.0-0.2) 10^3/uL PT 9.6 (9.1-11.1) sec INR 1.0 (0.9-1.1) APTT 25.3 (20.6-30.2) sec VBG Lactate (<or=2.0) mmol/L Sodium 136 (136-145) mmol/L Potassium 4.3 (3.5-5.1) mmol/L Chloride 101 (98-107) mmol/L Carbon Dioxide 25.6 (21.0-32.0) mmol/L Anion Gap 9.4 (3-11) mmol/L BUN 19 H (7-18) mg/dL Creatinine 1.0 (0.70-1.30) mg/dL Est GFR (CKD-EPI 2020) 90.00 (mL/min/1.73m2) Glucose 118 H (74-106) mg/dL Calcium 9.4 (8.5-10.1) mg/dL Magnesium 2.0 (1.8-2.4) mg/dL Total Bilirubin (0.2-1.0) mg/dL AST (15-37) U/L ALT (16-63) U/L Alkaline Phosphatase (46-116) U/L Total Protein (6.4-8.2) g/dL Albumin (3.4-5.0) g/dL Lipase (<78) U/L Intake and Output - 24 Hour Total 12/31/24 21:43 thru 12/31/24 21:47 Weight 108.862 kg Falls Risk Assessment History of Falls No History 12/31/24 21:51 Contributing Factors No Factors 12/31/24 21:51 Ambulatory Aids Independent 12/31/24 21:51 Tubes/Lines None 12/31/24 21:51 Gait Evaluation No gait disturbance 12/31/24 21:51 Cognition No cognitive impairment 12/31/24 21:51 Fall Total Score 0 12/31/24 21:51 Level of Risk Standard/Low Risk 12/31/24 21:51 Problems (Last Reviewed 03/21/21 @ 12:32 by MARIO Alonso) Partial obstruction of small intestine (Acute) v v v v v v v v v Sending and/or Receiving Nurses: Please use comment section below to note any information pertinent to the patient hand-off not included above. Information / Comments: Report taken from ED RN Dariel, patient came in with stubbing upeer abdominal pain., dx: SBO, has history of Chrons, Patient is AO w/ NGTube on right nare; fr-16 w/ a lenght of 56., He was given fentanyl; and zofran. Has IVFluids of NS@150 cc/hr. Skin intact and walkie talkie per nurse report.- Report received from:
[2025-01-01] MEDS: Normal Saline 1,000 ML 100 ML IV ×2 (05:20→15:41)
[2025-01-01] MEDS: Ketorolac 30 MG/ML VIAL IVP ×4 (06:20→23:06)
[2025-01-01 07:03] LABS: Abs Immature Grans 0.04 10^3/uL (0.0-0.06); Absolute Basophil Count 0.03 10^3/uL (0.0-0.2); Absolute Eosinophil Count 0.05 10^3/uL (0.0-0.7); Absolute Neutrophil Count 8.58 10^3/uL (1.2-6.7); Basophils % 0.3 %; Eosinophils % 0.5 %; HCT 43.8 % (40.0-50.0); HGB 14.5 g/dL (13.5-17.5); Immature Grans % 0.4 %; Lymphocytes % 9.7 %; MCH 30.3 pg (27.0-33.0); MCHC 33.1 % (32.0-36.0); MCV 91 fL (80-95); MPV 10.5 fL (8.0-11.0); Monocytes % 5.8 %; Neutrophils % 83.3 %; Platelet Count 230 10^3/uL (130-400); RBC 4.79 10^6/uL (4.36-5.78); RDW 12.8 % (11.8-14.1); RDW-SD 42.6 fL
[2025-01-01 07:31] LABS: ALT 27 U/L (16-63); AST 12 U/L (15-37); Albumin 3.5 g/dL (3.4-5.0); Alkaline Phosphatase 92 U/L (46-116); Anion Gap 7.6 mmol/L (3-11); BUN 16 mg/dL (7-18); Bilirubin, Total 0.5 mg/dL (0.2-1.0); CO2 28.4 mmol/L (21.0-32.0); CREATININE 0.9 mg/dL (0.70-1.30); Calcium 8.7 mg/dL (8.5-10.1); Chloride 101 mmol/L (98-107); Estimated GFR 102.12 (mL/min/1.73m2); Glucose 140 mg/dL (74-106); Potassium 4.2 mmol/L (3.5-5.1); Sodium 137 mmol/L (136-145); Total Protein 7.8 g/dL (6.4-8.2)
--- NOTE | 2025-01-01 09:16 | PDOC.CMIN ---
Date of service: 01/01/25 Time of Service: 09:17 Care Management Initial Assmt Initial Assessment Reason for Hospitalization: partial small bowel obstruction Functional Status/Living Situation Patient Presentation: Ryan presented to the ED early with morning with c/o severe upper abdominal pain radiating to his back. He did c/o one episode of nausea and vomiting. CT confirmed partial small bowel obstruction. Ryan was given IV pain meds, NGT was placed and surgery was consulted. Ryan has been sleeping each time CM has checked on him today. Ryan's son Michael came to visit, asked to speak with the provider. Provider and CM went to Ryan's room together. Ryan barely woke when the provider was in to speak. He did mention that he passed gas today. Michael was very appreciative of the time given. 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) Instrumental Activities of Daily Living (ADLs): Independent Medications Medication Management: No Issues/Barriers identified Advance Directives Advance Directives: Do you have an Advance Directive: N 03/21/21, 09:36 AD On File at [facility]: N 03/21/21, 09:36 Date Asked 12/31/24 12/31/24, 21:45 AD Date Reviewed COLST On File at [facility] COLST Date Scanned Code Status Resuscitation Status Full Code Insurance Coverage/Financial Issues Insurance: [facility] Care Team Visit Care Team Role Provider Type Joe Sinclair MD MD [facility] STAFF PHYSICIAN Joe Larsen Primary Care Provider NON-[facility] STAFF PHYSICIAN Shantell Aviles MD Other Providers NON-[facility] STAFF PHYSICIAN MARIO Fontana Other Providers PHYSICIANS ASSISTANT [place] Bertrand [facility] Other Providers [facility] STAFF PHYSICIAN [facility] Bertrand [facility] Other Providers NON-[facility] STAFF PHYSICIAN Joe Noonan, DO Other Providers CONSULTING PHYSICIAN Hya Ni MD Other Providers [facility] STAFF PHYSICIAN Jose Figueroa MD Other Providers [facility] STAFF PHYSICIAN Ely Killian MD Other Providers [facility] STAFF PHYSICIAN Kiara García, DO Other Providers CONSULTING PHYSICIAN Cristhian Juárez MD Other Providers CONSULTING PHYSICIAN Dani Reinoso MD Other Providers [facility] STAFF PHYSICIAN Yisel Daniel, DO Other Providers OSTEOPATHIC DOCTOR Key Cartagena MD Emergency Provider MD [facility] STAFF PHYSICIAN Deisy Ross MD Admit Provider MD [facility] STAFF PHYSICIAN Attending Provider Discharge Potential Discharge Needs: PCP F/U Appt and Surgical F/U Appt Anticipated Barriers to Discharge: None Identified Patient/Family Education Needs: Review discharge instructions, discuss Ask Me Three Transportation: Private vehicle Plan: Anticipate that Ryan will discharge home with no new services. He will f/u with his PCP, and possibly the surgeon, and continue per his plan of care. CM will continue to follow and update the plan as needed. Social Determinants of Health Screening Social Determinants of health last assessed in clinic: 01/01/25 Will the Patient Participate in the Screening?: Yes Do you worry about having a steady place to live?: yes What is your living situation today?: I have housing today, but am worried about losing it Problems where you live: no known problems In the past 12 months, have you had to go without electric, gas, oil or water in your home?: no 1. Within the past 12 months, we worried whether our food would run out before we got money to buy more.: Don't know/refused 2. Within the past 12 months, the food we bought just didn't last and we didn't have money to get more.: Don't know/refused Has lack of transportation kept you from medical appointments or from doing things needed for daily living?: no Has anyone in your life made you feel unsafe or unsupported?: no How hard is it for you to pay for the very basics like food, housing, medical care, and heating? Would you say it is:: Not hard at all Do you want help finding or keeping work or a job?: I do not need or want help If for any reason you need help with day-to-day activities such as bathing, preparing meals, shopping, managing finances, etc., do you get the help you need?: I get all the help I need How often do you feel lonely or isolated from those around you?: Never Do you speak a language other than [place]ralt[place] at home?: No Does the patient want assistance with any of the above?: No Health Related Social Needs Health related social needs: housing instability, housed, with risk of homelessness (Z59.811) Health related social needs details: Patient denied of any problems or issues at home. PFSH All Active Problems (Updated 01/01/25 @ 15:34 by Hay Ni MD) Diverticulosis (Acute) Abdominal pain (Acute) Crohn's disease (Chronic) Partial obstruction of small intestine (Acute) Rotator cuff tear, right (Acute) Shoulder pain (Acute) Social History Smoking/Tobacco Use Status: Current every day Smoking risk assessment performed?: Yes Alcohol Intake: current Alcohol Intake frequency: a few times a week Alcohol type: beer, wine and hard liquor Drug use: Never Substance use type: does not use Housing: house Do you feel safe at home: Yes Do you feel safe in your relationship?: Yes
[2025-01-01 10:39] LABS: Bilirubin Negative (Negative); Blood Negative (Negative); Clarity Clear (Clear); Glucose Negative (Negative); Ketones Trace mg/dL (Negative); Leukocyte Esterase Negative (Negative); Nitrite Negative (Negative); Specific Gravity 1.015 (1.005-1.025); Urobilinogen 0.2 mg/dL (Up to 0.2); pH 5.5 (5-8)
[2025-01-01 10:51] LABS: Epithelial Cells Rare HPF (Negative); RBC Negative HPF (0-2); WBC Negative HPF (0-5)
[2025-01-01 10:52] LABS: Bacteria Few HPF (Negative); Other Cells Negative (Negative)
[2025-01-01 10:53] LABS: C & S Indicated? No; Casts Negative LPF (Negative); Crystals Negative HPF (Negative); Mucus Trace (Negative)
[2025-01-01] MEDS: MORPHine 2 MG/ML SYR 1 MG IVP (11:55)
--- NOTE | 2025-01-01 15:21 | W.SURGCON ---
Date of service: 01/01/25 Time of Service: 15:21 Assessment and Plan Assessment and plan (1) Partial obstruction of small intestine: Status: Acute Assessment and plan: Patient does have a small bowel obstruction, transition point is at the terminal ileum, as would be expected in Crohn's disease. Currently he is on Remicade, got his last infusion of this at [facility] on Tuesday. His bowel obstruction is more complicated given his history of Crohn's disease. Will obtain abdominal plain film for the morning. If obstruction does not rapidly improve, will plan for transfer to either [facility] or [facility]. Patient prefers [facility]. (2) Crohn's disease: Status: Chronic Assessment and plan: Currently on Remicade, plan for transfer to either [facility] or [facility], if the obstruction does not improve. At [facility], his senior adults director is Dr. Tobin Cope at [facility], his senior adults director is Dr. Davonte Alcaraz. (3) Abdominal pain: Status: Acute Assessment and plan: He does have a diffuse abdominal pain, with guarding, his laboratory values and vital signs are normal. This level of pain, certainly can be seen in Crohn's, and the patient is not opiate na?ve. Clinically does not appear to represent generalized peritonitis. (4) Diverticulosis: Status: Acute Assessment and plan: Counseled patient regarding low-fat diet, with addition of soluble fiber supplements, such as Metamucil. Also emphasized importance of adequate hydration for prevention of recurrence of diverticulitis. History of Present Illness History of Present Illness Chief Complaint: Abdominal pain Narrative: Patient is a 54-year-old male, he has a history of Crohn's disease, has been treated at [facility] for several years for this. He has had small bowel obstructions in the past, most recently around 2019. Reports undergoing at least 2 or 3 laparoscopy procedures for intestinal obstructions. With this particular obstruction, he does report that over the past few days he has been eating rather more liberally, also drinking some alcohol. 4 days ago he had some vague discomfort in his upper abdomen, but yesterday this precipitously worsened, prompting presentation to the emergency department yesterday. He reports a colonoscopy about 10 years ago when he was first diagnosed with Crohn's disease. He does indicate that he has begun to transition his care to [facility] from [facility]. Review of Systems Narrative: General, negative. CV, negative. Respiratory, patient is a smoker, has been smoker for over 10 years. GI negative, with exception as noted in HPI above. negative. Neuro, negative. Endocrine, negative. Skin, negative. Psych, negative. Endocrine, negative. PFSH All Active Problems (Updated 01/01/25 @ 15:34 by Hay Ni MD) Diverticulosis (Acute) Abdominal pain (Acute) Crohn's disease (Chronic) Partial obstruction of small intestine (Acute) Rotator cuff tear, right (Acute) Shoulder pain (Acute) Social History Smoking/Tobacco Use Status: Current every day Smoking risk assessment performed?: Yes Alcohol Intake: current Alcohol Intake frequency: a few times a week Alcohol type: beer, wine and hard liquor Drug use: Never Substance use type: does not use Housing: house Do you feel safe at home: Yes Do you feel safe in your relationship?: Yes Exam Narrative Exam Narrative: Patient is an adult male, he is uncomfortable today, and irritated of being in the hospital. He has an NG tube present. His vital signs are normal. His cardiac exam is regular rate and rhythm without gross murmur. His pulm exam is clear to auscultation bilaterally. His abdomen does appear distended, he has prior laparoscopic surgical scars in the upper abdomen from previous laparoscopy procedures. The abdomen is diffusely tender, with voluntary guarding, there are diminished bowel sounds. Results Last Vital Signs Temp 36.9 C 01/01/25 07:28 Pulse 77 01/01/25 07:28 Resp 18 01/01/25 07:28 BP 134/89 01/01/25 07:28 Pulse Ox 96 01/01/25 07:28 Labs 01/01/25 06:20 01/01/25 06:20 Labs: Laboratory Results - last 24 hr 12/31/24 12/31/24 12/31/24 22:05 22:05 22:25 WBC 11.97 H RBC 4.98 Hgb 15.0 Hct 45.0 MCV 90 MCH 30.1 MCHC 33.3 RDW 12.6 Plt Count 238 MPV 10.7 Immature Gran % 0.5 Neutrophils % 72.4 Lymphocytes % 17.8 Monocytes % 8.0 Eosinophils % 0.8 Basophils % 0.5 Nucleated RBC % 0.0 Absolute Neutrophils 8.67 H Absolute Lymphocytes 2.13 Absolute Monocytes 0.96 H Absolute Eosinophils 0.10 Absolute Basophils 0.06 PT 9.6 INR 1.0 APTT 25.3 VBG Lactate 1.3 Sodium 136 Potassium 4.3 Chloride 101 Carbon Dioxide 25.6 Anion Gap 9.4 BUN 19 H Creatinine 1.0 Est GFR (CKD-EPI 2020) 90.00 Glucose 118 H Calcium 9.4 Magnesium 2.0 Cancelled Total Bilirubin 0.3 AST 13 L ALT 26 Alkaline Phosphatase 94 Total Protein 8.7 H Albumin 3.9 Lipase 17 Urine Color Urine Clarity Urine pH Ur Specific [place] Urine Protein Urine Ketones Urine Blood Urine Nitrite Urine Bilirubin Urine Urobilinogen Ur Leukocyte Esterase Urine RBC Urine WBC Ur Epithelial Cells Urine Crystals Urine Bacteria Urine Casts Urine Mucus Urine Other Ur Culture Indicated? Urine Glucose 01/01/25 01/01/25 06:20 10:00 WBC 10.30 RBC 4.79 Hgb 14.5 Hct 43.8 MCV 91 MCH 30.3 MCHC 33.1 RDW 12.8 Plt Count 230 MPV 10.5 Immature Gran % 0.4 Neutrophils % 83.3 Lymphocytes % 9.7 Monocytes % 5.8 Eosinophils % 0.5 Basophils % 0.3 Nucleated RBC % 0.0 Absolute Neutrophils 8.58 H Absolute Lymphocytes 1.00 L Absolute Monocytes 0.60 Absolute Eosinophils 0.05 Absolute Basophils 0.03 PT INR APTT VBG Lactate Sodium 137 Potassium 4.2 Chloride 101 Carbon Dioxide 28.4 Anion Gap 7.6 BUN 16 Creatinine 0.9 Est GFR (CKD-EPI 2020) 102.12 Glucose 140 H Calcium 8.7 Magnesium Total Bilirubin 0.5 AST 12 L ALT 27 Alkaline Phosphatase 92 Total Protein 7.8 Albumin 3.5 Lipase Urine Color Yellow Urine Clarity Clear Urine pH 5.5 Ur Specific [place] 1.015 Urine Protein 30 H Urine Ketones Trace H Urine Blood Negative Urine Nitrite Negative Urine Bilirubin Negative Urine Urobilinogen 0.2 Ur Leukocyte Esterase Negative Urine RBC Negative Urine WBC Negative Ur Epithelial Cells Rare Urine Crystals Negative Urine Bacteria Few Urine Casts Negative Urine Mucus Trace Urine Other Negative Ur Culture Indicated? No Urine Glucose Negative Imaging Abdomen CT scan report/results: report reviewed, image reviewed and other (Reviewed patient's images, he does have some thickening of the sigmoid colon consistent with history of diverticulitis, there does not appear to be active diverticulitis right now. The small intestine is diffusely dilated, stomach is dilated as well. The dilation extends up to the level of the ter)
[2025-01-01] MEDS: Normal Saline Flush 10 ML SYR IVP (23:07)
--- NOTE | 2025-01-02 | DI.RAD_ITS ---
Exam(s) XR ABDOMEN FLAT PLATE EXAM: 2D digital imaging was performed. CLINICAL HISTORY: sbo. COMPARISON: CT CT THORAX ABD/PEL CTA from 12/31/2024 TECHNIQUE: Supine views of the abdomen was performed. Three images were obtained. FINDINGS: LUNG BASES: Clear. BOWEL GAS PATTERN: There has been marked improvement in the appearance of the bowel gas pattern. There are few persistent mildly dilated loops of small bowel in the central abdomen, but these have significantly improved in number and size. There is air seen in the colon. FREE AIR: None. CALCIFICATIONS: No radiopaque calcifications. OSSEOUS STRUCTURES: Marked degenerative changes are seen in the hips bilaterally characterized by joint space narrowing and osteophytes. OTHER FINDINGS: The tip of the endotracheal tube is in good position in the stomach. IMPRESSION: 1. The bowel gas pattern is nonspecific with significant improvement in the number and size of dilated small bowel loops since 12/31/2024. The bowel gas pattern appears nonobstructive. 2. The tip of the enteric tube is in the appropriate position in the stomach. DATA REPOSITORY: RADIATION DOSE DELIVERED:
--- NOTE | 2025-01-02 | DI.RAD_ITS ---
Exam(s) XR ABDOMEN FLAT PLATE EXAM: 2D digital imaging was performed. CLINICAL HISTORY: Bowel obstruction.. COMPARISON: CT CT THORAX ABD/PEL CTA from 12/31/2024 CR,XR XR PORTABLE CHEST AP POST LINE from 01/01/2025 CR XR ABDOMEN FLAT PLATE from 01/02/2025 TECHNIQUE: Supine views of the abdomen performed. FINDINGS: Supine images were performed 1 now post administration of Gastrografin via the nasogastric tube. BOWEL GAS PATTERN: The stomach is nondistended. The nasogastric tube projects in the body of the stomach. There is [id number] dilatation of the small bowel throughout. Contrast is noted in the colon extending down to the level of the rectum. OSSEOUS STRUCTURES: Unremarkable for age. OTHER FINDINGS: Lung bases are clear. IMPRESSION: Mr. Gastrografin is noted from the stomach through the level of the rectum at 1 hour. There is mild to moderate distension of small bowel consistent with partial obstruction. DATA REPOSITORY: RADIATION DOSE DELIVERED:
[2025-01-02] MEDS: Normal Saline 1,000 ML 100 ML IV ×2 (02:15→12:42)
[2025-01-02] MEDS: MORPHine 2 MG/ML SYR 1 MG IVP (02:26)
[2025-01-02] MEDS: Ketorolac 30 MG/ML VIAL IVP ×3 (06:43→20:21)
[2025-01-02 07:36] VITALS: BP 136/90; PULSE 65; RESP 18; TEMP 36.9; O2SAT 95
--- NOTE | 2025-01-02 11:32 | W.PM.PROGNOT ---
Date of Service Date of service: 01/02/25 Time of Service: 11:32 Assessment and Plan Assessment and plan (1) Partial obstruction of small intestine: Status: Acute Assessment and plan: Patient does have a small bowel obstruction, transition point is at the terminal ileum, as would be expected in Crohn's disease. Currently he is on Remicade, got his last infusion of this at [facility] on Tuesday. His bowel obstruction is more complicated given his history of Crohn's disease. Will obtain abdominal plain film for the morning. If obstruction does not rapidly improve, will plan for transfer to either [facility] or [facility]. Patient prefers [facility]. 01/02/25 Await recommendations from . Does appear to be improving (2) Crohn's disease: Status: Chronic Assessment and plan: Currently on Remicade, plan for transfer to either [facility] or [facility], if the obstruction does not improve. At [facility], his change control coordinator is Dr. Tobin Cope at [facility], his change control coordinator is Dr. Davonte Alcaraz. (3) Abdominal pain: Status: Acute Assessment and plan: He does have a diffuse abdominal pain, with guarding, his laboratory values and vital signs are normal. This level of pain, certainly can be seen in Crohn's, and the patient is not opiate na?ve. Clinically does not appear to represent generalized peritonitis. (4) Diverticulosis: Status: Acute Assessment and plan: Counseled patient regarding low-fat diet, with addition of soluble fiber supplements, such as Metamucil. Also emphasized importance of adequate hydration for prevention of recurrence of diverticulitis. Subjective Subjective Interval history since last seen: Pt is passing gas and has had some small BM Exam Narrative Exam Narrative: HEENT-NCAT MMM EOMI NG IN PLACE NECK-NO LAD NO JVD CV-RRR NO MRG LUNGS-CTAB NO AMU ABD-BSA NO TTP EXT-NO CCE BILAT NEURO-CN 2-12 INTACT TESTED Objective Last Vital Signs Temp 36.9 C 01/02/25 07:36 Pulse 65 01/02/25 07:36 Resp 18 01/02/25 07:36 BP 136/90 01/02/25 07:36 Pulse Ox 95 01/02/25 07:36 PAWSS Have you Been Recently Intoxicated or Drunk Within the Last 30 days?: No Have you Ever Experienced Previous Episodes of Alcohol Withdrawal?: No Have you ever Experienced Withdrawal Seizures?: No Have you ever Experienced Delirium Tremens(DT)s?: No Have you ever undergone Alcohol Rehabilitation Treatment (i.e, inpt ot outpatient treatment programs)?: No Have you ever Experienced Blackouts?: No Have you ever Combined Alcohol with other Downers within the last 90 days?: No Have you ever Combined Alcohol with any other Substance of Abuse during the last 90 days?: No Positive Blood Alcohol level on Presentation? [PCS.BAL]: No Evidence of Increased Autonomic Activity (i.e. HR>120, tremor, sweating, agitation, nausea)?: No Result: 0 Time Spent with Patient Time Spent with Patient: 25-34 minutes Time was spent: preparing to see the patient(eg.review tests), obtaining and/or reviewing separately otained hiistory, ordering medications,tests, procedures, referring, communicating with other health direct care staffer, indepentently interpreting results, counseling the patient and care coordination
[2025-01-02] MEDS: Enoxaparin 40 MG/0.4 ML SYR SC (11:53)
--- NOTE | 2025-01-02 12:34 | W.PM.PROGNOT ---
Date of Service Date of service: 01/02/25 Time of Service: 12:34 Assessment and Plan Assessment and plan (1) Partial obstruction of small intestine: Status: Acute Assessment and plan: Reviewed patient's radiographs today, the bowel obstruction appears to have improved substantially. Will order a Gastrografin study for today. (2) Crohn's disease: Status: Chronic Assessment and plan: At [facility], his regional geodetic advisor is Dr. Tobin Cope at [facility], his regional geodetic advisor is Dr. Davonte Alcaraz. As an outpatient, he will need to see 1 of these physicians upon discharge. (3) Abdominal pain: Status: Acute Assessment and plan: Has resolved and improved today. (4) Diverticulosis: Status: Acute Assessment and plan: Previously counseled the patient regarding dietary changes and fiber supplements to avoid recurrence of this. Subjective Subjective Interval history since last seen: Patient today is feeling better. He passed a bowel movement, feels less distended. Today he is up walking around the unit. Exam Narrative Exam Narrative: Examined patient today in the supine position, he has excellent, normal active bowel sounds. His abdomen is soft, the tenderness that was present previously, is substantially improved. He is much less distended. Objective Last Vital Signs Temp 36.9 C 01/02/25 07:36 Pulse 65 01/02/25 07:36 Resp 18 01/02/25 07:36 BP 136/90 01/02/25 07:36 Pulse Ox 95 01/02/25 07:36 Objective Narrative Objective Narrative: Personally reviewed patient's KUB from today, the obstruction appears to have resolved. PAWSS Have you Been Recently Intoxicated or Drunk Within the Last 30 days?: No Have you Ever Experienced Previous Episodes of Alcohol Withdrawal?: No Have you ever Experienced Withdrawal Seizures?: No Have you ever Experienced Delirium Tremens(DT)s?: No Have you ever undergone Alcohol Rehabilitation Treatment (i.e, inpt ot outpatient treatment programs)?: No Have you ever Experienced Blackouts?: No Have you ever Combined Alcohol with other Downers within the last 90 days?: No Have you ever Combined Alcohol with any other Substance of Abuse during the last 90 days?: No Positive Blood Alcohol level on Presentation? [PCS.BAL]: No Evidence of Increased Autonomic Activity (i.e. HR>120, tremor, sweating, agitation, nausea)?: No Result: 0 Time Spent with Patient Time Spent with Patient: <25 minutes Time was spent: preparing to see the patient(eg.review tests), referring, communicating with other health direct care supervisor, indepentently interpreting results and counseling the patient
[2025-01-02] MEDS: Gastrografin 120 ML BTL PO (13:45)
--- NOTE | 2025-01-02 15:02 | NS.NUTBLAN_ITS ---
Date of service: 01/02/25 Time of Service: 13:50 Nutritional Consult ASSESSMENT: received nutrition consult request for one time opinion- nursing had suggested consult per pt/family request Pt is 54yo male with a history of Crohn's and diverticulosis. Being treated for partial SBO. Visited with Pt - lying in bed, not very conversative, but able to to have a few words with him. Last significant meal was last Tuesday evening. NG tube still in at my visit yesterday and NPO. He was seen by surgery afterward and advanced to clear liquids. Pt reports no sigificant weight changes of concern. I'm used to being NPO - was was just NPO at [facility] for 2 weeks. Nursing reported liquid BM's overnight 01/01. Asked if there was anything I could do to help with management of chronic GI concerns. Pt denies having questions but did mention he might be interested in some information. Nutrition related labs 01/03: total protein wnl with low albumin (2.8) - most likely related to inflammatory state than low protein status but would suggest prealbumin, transferrin to help further identify, but pt with obvious inadequate intake recently with NPO status over close to 4 days. Calcium at 8.2 today - potential for vit D deficiency and also possible poor absorption related to terminal small bowel inflammation and hx of crohn's. Would also suggest Vitamin D lab and supplementation with D and calcium if necessary d/t deficiency being common in Crohn's and linked to increased disease activity and risk of relapse. NUTRITIONAL DIAGNOSIS: inadequate intake related to extended npo status. due to patients low interaction level, unable to get a thorough diet history/assessment of his usual diet at baseline INTERVENTION: pt will be given some materials to review regarding low fiber diet during periods of active GI inflammation and then building both soluble and insoluble fiber back up to appropriate levels (at least 30g per day) over the course of 1- 2 weeks after sx's resolve. MONITORING AND EVALUATION: will monitor nutrition related labs, po intake/diet advancement/toleration, and will approach with resources and check in with pt/family for education needs prior to anticipated transfer. Time Spent in Nutritional Counseling and Treatment: 5 min
--- NOTE | 2025-01-02 16:54 | PDOC.CMPRO ---
Date of service: 01/02/25 Time of Service: 16:54 Care Management Progress Note Progress Note Text Progress Note Text: Ryan was lying in bed when CM met with him today. He was responsive, but barely opened his eyes. He still has an NGT that is maintianed on suction, and he is NPO. He had a gastrografin challenge today, that he did pass to his rectum within 1 hour. Ryan was also ordered for a nutrition consult today, but it does not appear that he was able to particiapte. Ryan did not really converse with CM. He denied any complaints or needs. Discharge Potential Discharge Needs: PCP F/U Appt and Other (GI f/u) Anticipated Barriers to Discharge: None Identified Patient/Family Education Needs: Review discharge instructions, discuss Ask Me Three Transportation: Private vehicle Plan: Ryan will discharge home with no new services once he is medically cleared. He will f/u with his PCP and GI - CM will clarify tomorrow where he would like to follow, as he has GI doctors at both [facility] and [facility]. He will transport via private vehicle and continue per his plan of care. CM will continue to follow. Social Determinants of Health Screening Social Determinants of health last assessed in clinic: 01/02/25 Will the Patient Participate in the Screening?: Yes Do you worry about having a steady place to live?: yes What is your living situation today?: I have housing today, but am worried about losing it Problems where you live: no known problems In the past 12 months, have you had to go without electric, gas, oil or water in your home?: no 1. Within the past 12 months, we worried whether our food would run out before we got money to buy more.: Don't know/refused 2. Within the past 12 months, the food we bought just didn't last and we didn't have money to get more.: Don't know/refused Has lack of transportation kept you from medical appointments or from doing things needed for daily living?: no Has anyone in your life made you feel unsafe or unsupported?: no How hard is it for you to pay for the very basics like food, housing, medical care, and heating? Would you say it is:: Not hard at all Do you want help finding or keeping work or a job?: I do not need or want help If for any reason you need help with day-to-day activities such as bathing, preparing meals, shopping, managing finances, etc., do you get the help you need?: I get all the help I need How often do you feel lonely or isolated from those around you?: Never Do you speak a language other than [place] at home?: No Does the patient want assistance with any of the above?: No Health Related Social Needs Health related social needs: housing instability, housed, with risk of homelessness (Z59.811) Health related social needs details: Patient denied of any problems or issues at home.
--- NOTE | 2025-01-02 17:00 | DI.RAD_ITS ---
Exam(s) XR ABDOMEN FLAT PLATE EXAM: 2D digital imaging was performed. CLINICAL HISTORY: SBO, 4 hour film s/p gastrografin. COMPARISON: CR XR ABDOMEN FLAT PLATE from 01/02/2025 TECHNIQUE: Supine views of the abdomen performed. Three images were obtained. FINDINGS: BOWEL GAS PATTERN: The oral contrast has passed into the colon. The leading edge of the contrast is all the way to the rectum. There is been significant improvement in the size of the small bowel compared to the earlier examination. CALCIFICATIONS: No radiopaque calcifications. OSSEOUS STRUCTURES: Normal for age. OTHER FINDINGS: The tip of the enteric tube is in the stomach. IMPRESSION: 1. No evidence of a complete bowel obstruction. The oral contrast has passed into the colon. The leading edge of contrast is at the rectum. 2. There is still a small amount of contrast within the small bowel, however the degree of distension of the small bowel is decreased compared to the prior examination. DATA REPOSITORY: RADIATION DOSE DELIVERED:
[2025-01-02] MEDS: Normal Saline Flush 10 ML SYR IVP (20:21)
[2025-01-02 23:25] VITALS: BP 134/83; PULSE 60; RESP 16; TEMP 36.4; O2SAT 96
[2025-01-03] MEDS: Normal Saline 1,000 ML 100 ML IV ×2 (00:50→09:52)
[2025-01-03 06:52] LABS: Abs Immature Grans 0.02 10^3/uL (0.0-0.06); Absolute Basophil Count 0.02 10^3/uL (0.0-0.2); Absolute Lymphocyte Count 1.39 10^3/uL (1.2-3.4); Absolute Monocyte Count 0.55 10^3/uL (0.1-0.8); Absolute Neutrophil Count 3.48 10^3/uL (1.2-6.7); Basophils % 0.4 %; Eosinophils % 1.8 %; HGB 12.8 g/dL (13.5-17.5); Immature Grans % 0.4 %; MCH 30.3 pg (27.0-33.0); MCHC 32.8 % (32.0-36.0); MCV 92 fL (80-95); MPV 10.6 fL (8.0-11.0); Monocytes % 9.9 %; Neutrophils % 62.5 %; Platelet Count 181 10^3/uL (130-400); RBC 4.22 10^6/uL (4.36-5.78); RDW 12.4 % (11.8-14.1); RDW-SD 42.1 fL; WBC 5.56 10^3/uL (4.4-10.8)
[2025-01-03 07:20] VITALS: BP 142/88; PULSE 61; RESP 16; TEMP 36; O2SAT 96
[2025-01-03 07:48] LABS: ALT 29 U/L (16-63); AST 17 U/L (15-37); Albumin 2.8 g/dL (3.4-5.0); Alkaline Phosphatase 83 U/L (46-116); BUN 23 mg/dL (7-18); Bilirubin, Total 0.5 mg/dL (0.2-1.0); CREATININE 0.8 mg/dL (0.70-1.30); Calcium 8.2 mg/dL (8.5-10.1); Chloride 107 mmol/L (98-107); Estimated GFR 105.82 (mL/min/1.73m2); Glucose 80 mg/dL (74-106); Sodium 140 mmol/L (136-145); Total Protein 6.7 g/dL (6.4-8.2)
--- NOTE | 2025-01-03 11:42 | W.PM.PROGNOT ---
Date of Service Date of service: 01/03/25 Time of Service: 11:42 Assessment and Plan Assessment and plan (1) Partial obstruction of small intestine: Status: Acute Assessment and plan: Appears to have improved. Yesterday at my request his NG tube was removed and he was started on clears. He has been able to tolerate this. 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 Recommend that he follow-up with [facility], as he has recently just gotten his Remicade infusion from this particular location. Recommended further to him that he begin sugar-free Metamucil, and attentively maintain excellent hydration well at home. Subjective Subjective Interval history since last seen: He is feeling quite well today, and continues to pass bowel movements. No nausea nor vomiting with the clear liquids, reports that the abdominal distention that he had on admission is markedly improved. Exam Narrative Exam Narrative: Adult male, he is awake and alert, in much less discomfort than 2 days ago on admission. His abdomen does have some tympany to percussion in the left upper quadrant, it is soft, and nontender. Some minimal distention. Objective Last Vital Signs Temp 36.0 C L 01/03/25 07:20 Pulse 61 01/03/25 07:20 Resp 16 01/03/25 07:20 BP 142/88 H 01/03/25 07:20 Pulse Ox 96 01/03/25 07:20 Laboratory Results - last 24 hr 01/03/25 06:24 WBC 5.56 RBC 4.22 L Hgb 12.8 L Hct 39.0 L MCV 92 MCH 30.3 MCHC 32.8 RDW 12.4 Plt Count 181 MPV 10.6 Immature Gran % 0.4 Neutrophils % 62.5 Lymphocytes % 25.0 Monocytes % 9.9 Eosinophils % 1.8 Basophils % 0.4 Nucleated RBC % 0.0 Absolute Neutrophils 3.48 Absolute Lymphocytes 1.39 Absolute Monocytes 0.55 Absolute Eosinophils 0.10 Absolute Basophils 0.02 Sodium 140 Potassium 4.0 Chloride 107 Carbon Dioxide 26.0 Anion Gap 7.0 BUN 23 H Creatinine 0.8 Est GFR (CKD-EPI 2020) 105.82 Glucose 80 Calcium 8.2 L Total Bilirubin 0.5 AST 17 ALT 29 Alkaline Phosphatase 83 Total Protein 6.7 Albumin 2.8 L PAWSS Have you Been Recently Intoxicated or Drunk Within the Last 30 days?: No Have you Ever Experienced Previous Episodes of Alcohol Withdrawal?: No Have you ever Experienced Withdrawal Seizures?: No Have you ever Experienced Delirium Tremens(DT)s?: No Have you ever undergone Alcohol Rehabilitation Treatment (i.e, inpt ot outpatient treatment programs)?: No Have you ever Experienced Blackouts?: No Have you ever Combined Alcohol with other Downers within the last 90 days?: No Have you ever Combined Alcohol with any other Substance of Abuse during the last 90 days?: No Positive Blood Alcohol level on Presentation? [PCS.BAL]: No Evidence of Increased Autonomic Activity (i.e. HR>120, tremor, sweating, agitation, nausea)?: No Result: 0 Time Spent with Patient Time Spent with Patient: <25 minutes Time was spent: preparing to see the patient(eg.review tests) and counseling the patient
--- NOTE | 2025-01-03 12:22 | DSE_ITS ---
Date of service: 01/03/25 Time of Service: 12:22 DS: Diagnosis Discharge Diagnosis (1) Partial obstruction of small intestine: Status: Acute Discharge Plan Disposition Patient Disposition: Home Condition: Improving Discharge Details Reason For Visit: SBO Admit Date/Time: 01/01/25 01:51 Admit Provider: Deisy Ross Attending Provider: Deisy Ross Primary Care Provider: Joe Larsen [facility] Hospital Course: This is a 54-year-old gentleman who was admitted for the reasons listed below including a small bowel obstruction. While he was here he was seen in consultation with general surgery. Initially he was on an NG tube with suction and as his symptoms improved and his physical exam improved the NG tube was removed on the , patient was cleared from general surgery's perspective and will be sent home. Will need to follow-up with his outpatient bilingual manager. No new medications be prescribed at this time. History of Present Illness Narrative: 54 yo male with history of Crohn's, longstanding GI issues with multiple admissions related to IBD per his report including intra-abdominal fistulas. He presented to the ED with severe abdominal pain and vomiting today. He is in the process of having his care transferred from [facility] to [facility] as he has been admitted to the hospital many times with ongoing complications and felt [facility] would better manage his IBD. He has been evaluated at and is in contact with the GI doctors there, they apparently have been directing his remicade infusions and increased the dose on his last infusion which was this past Tuesday. Within a few hours he had significant abdominal pain, no vomting, his belly felt tight, but this passed within 4-5 hours and he felt well over the weekend. He was feeling normal Tuesday morning, had a normal BM and went to work. He had a breakfast sandwich late AM. Around 9:30-10 he started to have severe pain and his belly again felt, tight, to the point where he did not want to eat lunch. After work the pain started to get worse and ultimately he started vomiting, nancy t prompted him to seek care in the ED. No blood in stool or vomit. Not passing gas since arriving in the ED. No fever and he has not been ill in any other way. All other ROS is negative Assessment and plan (1) Partial obstruction of small intestine: Status: Acute Assessment and plan: 54 yo male with hx of Crohn's, multiple laparoscopic procedures per his report, no open abdominal surgery, now with partial SBO although CT does describe a transition point, he has no bowel sounds and his abdomen is quite firm. NG placed in ED with 400-500 cc output. ED provider discussed the case with general surgery who reportedly are aware of his history and recommended admission to hospitalist service. -will of course be NPO with maintenance IVF and continue NG -does not take any routine prescription medications on a daily basis -leukocytosis likely related to obstruction with no other indication of infection including no mention of colitis on CT, repeat CBC this AM -no pharmacologic VTE prophylaxis as may need procedure Assessment and Plan Assessment and plan (1) Partial obstruction of small intestine: Status: Acute Assessment and plan: Appears to have improved. Yesterday at my request his NG tube was removed and he was started on clears. He has been able to tolerate this. Will advance him to a bland soft diet today, and plan for discharge home today, with outpatient follow-up with his bilingual manager. Recommend that he follow-up with [facility], as he has recently just gotten his Remicade infusion from this particular location. Recommended further to him that he begin sugar-free Metamucil, and attentively maintain excellent hydration well at home. Subjective Subjective Interval history since last seen: He is feeling quite well today, and continues to pass bowel movements. No nausea nor vomiting with the clear liquids, reports that the abdominal distention that he had on admission is markedly improved. Home Meds and New Rx's Prescriptions: No Action infliximab [Remicade] 100 mg Recon Soln 1,100 mg IV Q30D naproxen [Naprosyn] 500 mg tablet 500 mg PO BID PRNQty: 10 0RF Discharge Instructions Referrals: Hay Ni MD [ [facility], Surgery] Referral Note: follow up in 2-3 weeks Activity:: Activity as Tolerated Equipment/Supplies:: No Equipment Needed Diet:: per recommendations Discharge Orders Discharge Orders: Discharge Order (Routine); Ordered 01/03/25 Ordered By: Joe Sinclair DS: Summary Time Spent with Patient providing and/or coordinating discharge services: Less than 30 minutes Status at Discharge Functional status at discharge: independent ambulation Overall status at discharge: patient is back to baseline Mental Status: mental status grossly normal Speech and Movement: speech and movement normal Mood: congruent mood Affect: normal affect Quality:SDOH Health Related Social Needs: Health related social needs risk of homeless Health related social needs details Patient denied of any problems or issues at home. Health related social needs details: Patient denied of any problems or issues at home. Exam Narrative Exam Narrative: Examined patient today in the supine position, he has excellent, normal active bowel sounds. His abdomen is soft, the tenderness that was present previously, is substantially improved. He is much less distended. Psych Mental Status: mental status grossly normal Speech and Movement: speech and movement normal Mood: congruent mood Affect: normal affect DS: Data Vitals/I&O Vitals and I&O: Vital Signs Temperature 36.0 C L 01/03/25 07:20 Temperature Source Temporal Artery Scan 01/03/25 07:20 Pulse 61 01/03/25 07:20 Pulse Rhythm Regular 01/01/25 02:43 Respiratory Rate 16 01/03/25 07:20 Respiratory Effort Normal, Non-Labored 01/01/25 02:43 Respiratory Depth Normal 01/01/25 02:43 Blood Pressure 142/88 H 01/03/25 07:20 Blood Pressure Mean 106 01/03/25 07:20 Blood Pressure Position Sitting 12/31/24 21:51 Pulse Oximetry 96 01/03/25 07:20 Oxygen Delivery Method Room Air 01/03/25 07:20 Oxygen Flow Rate 0 01/03/25 07:20 Pain Level 0 01/03/25 07:20 Intake & Output 01/02/25 01/03/25 01/03/25 23:59 11:59 23:59 Intake Total 2761 / 4761 1262.333 / 1262.333 Output Total 450 / 950 Balance 2311 / 3811 1262.333 / 1262.333 Intake: IV 1861 / 3861 1042.333 / 1042.333 Oral 900 / 900 220 / 220 Output: Gastric Drainage 450 / 700 Right Nare 450 / 700 Other: Comment pt voiding independently in room pt voiding independently in room Data Completed and Pending Labs on day of discharge: Labs from last 24 hours 01/03/25 06:24 WBC 5.56 RBC 4.22 L Hgb 12.8 L Hct 39.0 L MCV 92 MCH 30.3 MCHC 32.8 RDW 12.4 Plt Count 181 MPV 10.6 Immature Gran % 0.4 Neutrophils % 62.5 Lymphocytes % 25.0 Monocytes % 9.9 Eosinophils % 1.8 Basophils % 0.4 Nucleated RBC % 0.0 Absolute Neutrophils 3.48 Absolute Lymphocytes 1.39 Absolute Monocytes 0.55 Absolute Eosinophils 0.10 Absolute Basophils 0.02 Sodium 140 Potassium 4.0 Chloride 107 Carbon Dioxide 26.0 Anion Gap 7.0 BUN 23 H Creatinine 0.8 Est GFR (CKD-EPI 2020) 105.82 Glucose 80 Calcium 8.2 L Total Bilirubin 0.5 AST 17 ALT 29 Alkaline Phosphatase 83 Total Protein 6.7 Albumin 2.8 L PFSH All Active Problems (Updated 01/03/25 @ 12:22 by Joe Sinclair MD) Diverticulosis (Acute) Abdominal pain (Acute) Crohn's disease (Chronic) Partial obstruction of small intestine (Acute) Rotator cuff tear, right (Acute) Shoulder pain (Acute) Social History Smoking/Tobacco Use Status: Current every day Smoking risk assessment performed?: Yes Alcohol Intake: current Alcohol Intake frequency: a few times a week Alcohol type: beer, wine and hard liquor Drug use: Never Substance use type: does not use Housing: house Do you feel safe at home: Yes Do you feel safe in your relationship?: Yes Time Spent with Patient Time Spent with Patient: <45 minutes Time was spent: preparing to see the patient(eg.review tests), obtaining and/or reviewing separately otained hiistory, ordering medications,tests, procedures, referring, communicating with other health tire care manager, indepentently interpreting results, counseling the patient and care coordination
--- NOTE | 2025-01-03 14:36 | CMDISCH_ITS ---
Date of service: 01/03/25 Time of Service: 14:36 LACE Index Scoring Tool Questions: Length of Stay (in days): 2 Was the patient admitted via the E.D.?: Yes E.D. Visits: 1 Answers: Total Score: 6 Risk of Readmission: Low Risk Care Management Discharge Plan Reason for Hospitalization: partial small bowel obstruction Discharge Plan: Ryan was discharged home today with no new services. He was able to tolerate a full lunch today. Ryan will f/u with his PCP and with the surgeon and continue per his plan of care. Ryan was transported home by his son. Patient/Family Education Needs: Review of discharge instructions, activity, terry itations, dietary recommendations, and discuss ask me 3. SDOH Health Related Social Needs: Health related social needs risk of homeless Health related social needs details Patient denied of any problems or issues at home. Health related social needs details: Patient denied of any problems or issues at home.
== END 2025-01-03 14:22 | disposition home or self-care (01) | DRG 389 ==
LOC: ER 01-01 02:15 → MS 01-01 02:22
PROVIDERS: Admitting Provider Family Medicine; Emergency Provider Student in an Organized Health Care Education/Training Program; PCP Internal Medicine; Responsible Provider Hospitalist; Visit Provider Family Medicine
DX: K56.600 Partial intestinal obstruction, unspecified as to cause (principal); K50.812 Crohn's disease of both small and large intestine with intestinal obstruction; R10.84 Generalized abdominal pain; Z79.620 Long term (current) use of immunosuppressive biologic; D72.829 Elevated white blood cell count, unspecified
CPT/HCPCS: 00123; 36415; 71045; 71275; 80053; 83690; 93005; 96361; 96374; 96375; 96376; 99285; J1650; 74018; 74174; 81003; 81015; 83605; 83735; 85025; 85610; 85730; 93010; 99223; 99232; 99238; J1885; J2270; J2405; J3010; J3490

== ENCOUNTER 2025-01-10 02:05 | Observation (INO) | payer BC, SELFPAY ==
[2025-01-10] VITALS (32 sets, daily range): BP systolic 109–163; BP diastolic 59–101; PULSE 54–86; RESP 14–22; TEMP 36.4–37; O2SAT 93–99
--- NOTE | 2025-01-10 02:00 | RT.EKG_ITS ---
APPROVED REPORT Exam: Resting ECG Reason for Exam: abd pain Patient Location: E HR:64 bpm ECG Measurements Heart Rate 64 AXIS NJ 169 P 24 QRSd 93 QRS 18 QT 379 T 40 QTc 393 Conclusion Sinus rhythm...normal P axis, V-rate 60- [address] segment or T wave abnormalities to suggest occlusive AR
--- NOTE | 2025-01-10 02:32 | W.ED.GENAD ---
Discharge Plan Disposition Patient Disposition: Admit to [facility] Condition: Stable Discharge Details Clinical Impression: Small bowel obstruction, Crohn's disease, Ileitis Primary Care Provider: Joe Larsen ED Provider: Key Cartagena Home Meds and New Rx's Prescriptions: No Action infliximab [Remicade] 100 mg Recon Soln 1,100 mg IV Q30D naproxen [Naprosyn] 500 mg tablet 500 mg PO BID PRNQty: 10 0RF HPI General Mode of arrival: ambulatory. Date/Time Provider Initiated Documentation: 01/10/25 02:06. Limitations to Documentation: no limitations. Information obtained by: patient. HPI Narrative: 54yo M with hx of Crohns, recent admission 01/01/25 for small bowel obstruction which was managed medically, presenting with diffuse severe abdominal pain. Has had some cramping pain throughout the day, worsening overnight and now severe and coming in waves. No chest pain or back pain. Nausea, no vomiting. Last BM yesterday, normal. Otherwise in his usual state of health with no fevers, chills, rash, dysuria, hematuria, or other concerns. Related Data Home Medications ?Medication ?Instructions ?Recorded ?Confirmed infliximab 100 mg intravenous 1,100 mg IV Q30D 03/21/21 01/10/25 solution (Remicade) naproxen 500 mg tablet (Naprosyn) 500 mg PO BID PRN #10 tabs 03/21/21 01/10/25 Previous Rx's ?Medication ?Instructions ?Recorded naproxen 500 mg tablet (Naprosyn) 500 mg PO BID PRN #10 tabs 03/21/21 Allergies Allergy/AdvReac Type Severity Reaction Status Date / Time No Known Allergies Allergy Unverified 12/31/24 21:52 General Stated Complaint: Abd Prob ROCAEL: 3 Exam Narrative Exam Narrative: General: Alert, non-toxic, appears to be in pain Head: Normocephalic, atraumatic Neck: Trachea midline, ?Neck supple. ENT: ?MMM.? No oropharygeal lesions or exudate. Cardiac: ?RRR, no murmurs appreciated Resp: No respiratory distress. CTAB. Abd: ?Soft, non-distended, diffusely TTP worst in epigastrium : ?No suprapubic tenderness. No CVA tenderness. Extremities: ?No deformities.? No peripheral edema. Neurologic: GCS 15. ? Moves all extremities freely against gravity Course Vital Signs Vital signs: Vital Signs Temperature 36.7 C 01/10/25 02:11 Pulse 77 01/10/25 02:11 Respiratory Rate 20 01/10/25 02:11 Blood Pressure 163/101 H 01/10/25 02:11 Pulse Oximetry 99 01/10/25 02:11 Temperature 36.7 C 01/10/25 02:13 Pulse 77 01/10/25 02:13 Respiratory Rate 20 01/10/25 02:13 Blood Pressure 163/101 H 01/10/25 02:13 Blood Pressure Position Sitting 01/10/25 02:13 Pulse Oximetry 99 01/10/25 02:13 Oxygen Delivery Method Room Air 01/10/25 02:13 Oxygen Flow Rate 0 01/10/25 02:13 Medical Decision Making 54yo M with hx of Crohns, recent admission 01/01/25 for small bowel obstruction which was managed medically, presenting with diffuse severe abdominal pain. Nausea, no vomiting. Hypertensive on arrival, vital signs otherwise reassuring. Diffusely tender on exam worst in the epigastrium. No chest pain or back pain to suggest dissection or ACS and no pain out of proportion to suggest mesenteric ischemia. Will give tylenol, toradol, fentanyl, and zofran while awaiting results of workup. EKG from triage NSR, appropriate intervals, no ST segement or T wave abnormalities to suggest occlusive SC. Labs reviewed as below, CBC reassuring with no leukocytosis, CMP with no actionable abnormalities, Mg normal, lipase not suggestive of pancreatitis. Awaiting UA. CT abd/pelvis independently reviewed; no free fluid on my view, radiology read below with ileitis and small bowel obstruction. NG tube ordered; patient refusing at this time. I discussed with him and he states he will be agreeable to it in an hour or two, just 'needs some time to prepare'. As he has had no vomiting this is not entirely unreasonable. Will need medicine admission with surgery involvement; discussed with [facility] hospitalist Dr. Sinclair who requested I contact surgery at this time to make them aware of patient. Discussed with Dr. Killian on-call for surgery who agrees with plan for medicine admission and will review imaging. Awaiting transfer to the floor. Medical Records Medical records reviewed: Yes I reviewed the patient's medical records. Medical records narrative: recent admission H&P and DC summary Imaging Data Radiologic Study: Imaging: CT Scan Radiologist's impression: IMPRESSION: 1. Mural thickening through the distal and terminal ileum suggesting acute ileitis. An acute Crohn's flare is suspected in a patient with a known history of Crohn's disease although infectious ileitis could have a similar appearance. Clinical correlation is recommended. 2. Prominent dilatation of the upstream small bowel in keeping with superimposed obstructive physiology probably caused by the aperistaltic inflamed ileal segment or and ileal stricture. Hazy fat stranding and a small amount of fluid in the subtending small bowel mesentery. 3. Small amount of ascites in the right upper quadrant. No free air Lab Data Lab results reviewed: Yes I reviewed the patient's lab results. Labs: Laboratory Tests Range/Units 01/10/25 02:33 WBC (4.4-10.8) 10^3/uL 10.33 RBC (4.36-5.78) 10^6/uL 5.15 Hgb (13.5-17.5) g/dL 15.6 Hct (40.0-50.0) % 46.8 MCV (80-95) fL 91 MCH (27.0-33.0) pg 30.3 MCHC (32.0-36.0) % 33.3 RDW (11.8-14.1) % 12.7 Plt Count (130-400) 10^3/uL 254 MPV (8.0-11.0) fL 10.4 Immature Gran % % 0.4 Neutrophils % % 73.4 Lymphocytes % % 15.4 Monocytes % % 9.3 Eosinophils % % 1.0 Basophils % % 0.5 Nucleated RBC % (0.0-0.3) % 0.0 Absolute Neutrophils (1.2-6.7) 10^3/uL 7.59 H Absolute Lymphocytes (1.2-3.4) 10^3/uL 1.59 Absolute Monocytes (0.1-0.8) 10^3/uL 0.96 H Absolute Eosinophils (0.0-0.7) 10^3/uL 0.10 Absolute Basophils (0.0-0.2) 10^3/uL 0.05 Sodium (136-145) mmol/L 137 Potassium (3.5-5.1) mmol/L 4.6 Chloride (98-107) mmol/L 100 Carbon Dioxide (21.0-32.0) mmol/L 29.0 Anion Gap (3-11) mmol/L 8.0 BUN (7-18) mg/dL 19 H Creatinine (0.70-1.30) mg/dL 1.1 Est GFR (CKD-EPI 2020) (mL/min/1.73m2) 80.27 Glucose (74-106) mg/dL 109 H Calcium (8.5-10.1) mg/dL 9.0 Magnesium (1.8-2.4) mg/dL 2.2 Total Bilirubin (0.2-1.0) mg/dL 0.3 AST (15-37) U/L 10 L ALT (16-63) U/L 32 Alkaline Phosphatase (46-116) U/L 83 Total Protein (6.4-8.2) g/dL 8.1 Albumin (3.4-5.0) g/dL 4.0 Lipase (<78) U/L 19 Quality:SDOH Health Related Social Needs: Health related social needs risk of homeless Health related social needs details Patient denied of any problems or issues at home. PFSH All Active Problems (Updated 01/10/25 @ 04:40 by Key Cartagena MD) Ileitis (Acute) Small bowel obstruction (Acute) Diverticulosis (Acute) Crohn's disease (Chronic) Rotator cuff tear, right (Acute) Shoulder pain (Acute) Social History Smoking/Tobacco Use Status: Current every day Smoking risk assessment performed?: Yes Alcohol Intake: current Alcohol Intake frequency: a few times a week Alcohol type: beer, wine and hard liquor Drug use: Never Substance use type: does not use Housing: house Do you feel safe at home: Yes Do you feel safe in your relationship?: Yes
[2025-01-10] MEDS: Omnipaque 350 MG/ML 100 ML BTL IJ (02:36)
[2025-01-10] MEDS: Normal Saline - Diluent 50 ML VIAL IJ (02:37)
[2025-01-10] MEDS: Ondansetron 4 MG/2 ML VIAL IVP (02:42)
[2025-01-10] MEDS: fentaNYL 100 MCG/2 ML VIAL 50 MCG IVP ×9 (02:42→21:23)
[2025-01-10] MEDS: Ketorolac 15 MG/ML VIAL IVP (02:42)
[2025-01-10 02:47] LABS: Abs Immature Grans 0.04 10^3/uL (0.0-0.06); Absolute Basophil Count 0.05 10^3/uL (0.0-0.2); Absolute Lymphocyte Count 1.59 10^3/uL (1.2-3.4); Absolute Monocyte Count 0.96 10^3/uL (0.1-0.8); Absolute Neutrophil Count 7.59 10^3/uL (1.2-6.7); Basophils % 0.5 %; HCT 46.8 % (40.0-50.0); HGB 15.6 g/dL (13.5-17.5); Immature Grans % 0.4 %; Lymphocytes % 15.4 %; MCH 30.3 pg (27.0-33.0); MCHC 33.3 % (32.0-36.0); MCV 91 fL (80-95); MPV 10.4 fL (8.0-11.0); Monocytes % 9.3 %; Neutrophils % 73.4 %; Platelet Count 254 10^3/uL (130-400); RBC 5.15 10^6/uL (4.36-5.78); RDW 12.7 % (11.8-14.1); RDW-SD 41.6 fL; WBC 10.33 10^3/uL (4.4-10.8)
[2025-01-10] MEDS: ACETAMINOPHEN 1,000 MG/100 ML BAG 400 MG IVPB (03:03)
--- NOTE | 2025-01-10 03:18 | DI.CT_ITS ---
Exam(s) CT ABDOMEN PELVIS W EXAM: CT ABDOMEN PELVIS W CLINICAL HISTORY: severe abd pain, recent SBO, Crohn's TECHNIQUE: Imaging Protocol: Axial computed tomography images with coronal and sagittal reformatted images were created and reviewed. CONTRAST MATERIAL: Intravenous: Omnipaque 350 Contrast volume:100 mL Oral: No COMPARISON: CT CT THORAX ABD/PEL CTA from 12/31/2024 CR XR ABDOMEN FLAT PLATE from 01/02/2025 FINDINGS: ABDOMEN: Lung Bases: No acute abnormality. Liver: Normal density. No measurable mass. Portal, Superior Mesenteric, and Splenic Veins: Unremarkable. Gallbladder and Biliary Tract: No radiodense calculus or dilation. Pancreas: Normal density, no abnormal calcifications or inflammatory process. Spleen: Normal. Adrenals: No masses seen. Kidneys: Normal size, contour and axis. No radiodense stones or obstructive uropathy. There is a simple right renal cyst. No follow-up is recommended. Abdominal Aorta: Abdominal portion non-dilated. Atherosclerotic calcification is present. Bowel: There is diverticulosis of the colon without evidence of diverticulitis. The colon is of normal caliber. There is mild bowel wall thickening seen in the terminal ileum. There are areas of mild bowel wall thickening seen in the small bowel. There is distension of the small bowel throughout. The transition is again seen in the level of the terminal ileum in the right lower quadrant. There is no evidence of appendicitis. Peritoneal Cavity: There is a small amount of perihepatic ascites. No free air. Lymph Nodes: Mildly enlarged lymph nodes are seen in the right lower quadrant. Bones: Within normal limits for the patient's age. Soft Tissues: There are bilateral small fat containing inguinal hernias. PELVIS: Bladder: Symmetric distention, no gross wall thickening. Reproductive Organs: Unremarkable as visualized. Lymph Nodes: Within normal limits. Bones: Within normal limits for the patient's age. IMPRESSION: 1. There is bowel wall thickening seen in the areas in the small bowel which can be seen with an infectious or inflammatory enteritis. This would be consistent with an acute bones incident given the patient's clinical history. 2. Findings are suspicious for small bowel obstruction secondary to the bowel wall thickening in the terminal ileum. 3. Perihepatic ascites. 4. No pneumoperitoneum. 5. Colonic diverticulosis without evidence of acute diverticulitis. 6. The preliminary [facility] report was reviewed. RADIATION DOSE DELIVERED: 977.43mGy.cm Total DLP DATA REPOSITORY: All CT scans at this facility are submitted to the National Radiology Data Registry (NRDR) Dose Index Registry (DIR) with the [employer] ([employer]). RADIATION OPTIMIZATION: All CT scans at this facility use at least one of these dose optimization techniques: automated exposure control; mA and/or kV adjustment per patient size (includes targeted exams where dose is matched to clinical indication); or iterative reconstruction.
--- NOTE | 2025-01-10 03:31 | DI.VRAD_ITS ---
PROCEDURE INFORMATION: Exam: CT Abdomen And Pelvis With Contrast Exam date and time: 01/10/2025 2:37 AM Age: 54 years old Clinical indication: Abdominal pain; Generalized; Severe abd pain, recent sbo, crohn's TECHNIQUE: Imaging protocol: Computed tomography of the abdomen and pelvis with contrast. Radiation optimization: All CT scans at this facility use at least one of these dose optimization techniques: automated exposure control; mA and/or kV adjustment per patient size (includes targeted exams where dose is matched to clinical indication); or iterative reconstruction. Contrast material: [id number]; Contrast volume: 100 ml; Contrast route: INTRAVENOUS (IV); COMPARISON: No relevant prior studies available. FINDINGS: Liver: Normal appearing liver. Gallbladder and biliary ducts: Normal appearing gallbladder. No calcified gallstones. No biliary dilatation. Pancreas: Normal appearing pancreas. Spleen: Normal appearing spleen. Adrenal glands: Normal appearing adrenal glands. Kidneys and ureters: 2.0 cm right renal cyst measuring 10 Hounsfield units density on image 44 of series 8. Otherwise normal-appearing kidneys. No hydronephrosis. No obstructing ureteral stones. Stomach and bowel: Stomach moderately distended with fluid, ingested material, and gas. Mural thickening through the distal and terminal ileum suggesting acute ileitis. Prominent dilatation of the upstream small bowel suggesting superimposed obstructive physiology. Mild hazy fat stranding and trace fluid in the subtending mesentery. Fluid in the cecum and ascending colon. Normal-appearing fecal material in the transverse colon. Downstream colon relatively well evacuated. Scattered colonic diverticula through the distal descending and sigmoid segments but no evidence of diverticulitis or colitis. Appendix: Normal appendix. Intraperitoneal space: Hazy mesenteric edema on the right. Small amount of ascites in the right upper quadrant. No free air. Vasculature: Normal caliber abdominal aorta. Lymph nodes: Clustered mildly prominent lymph nodes in the small bowel mesentery on the right, probably reactive given other findings. Urinary bladder: Normal appearing urinary bladder. Reproductive: Normal-sized prostate gland and seminal vesicles. Coarse prostate calcifications. Bones/joints: No acute fracture seen among the bones of the abdomen or pelvis. Moderate discogenic degeneration at L5-S1. Soft tissues: Small fat containing bilateral inguinal region hernias. IMPRESSION: 1. Mural thickening through the distal and terminal ileum suggesting acute ileitis. An acute Crohn's flare is suspected in a patient with a known history of Crohn's disease although infectious ileitis could have a similar appearance. Clinical correlation is recommended. 2. Prominent dilatation of the upstream small bowel in keeping with superimposed obstructive physiology probably caused by the aperistaltic inflamed ileal segment or and ileal stricture. Hazy fat stranding and a small amount of fluid in the subtending small bowel mesentery. 3. Small amount of ascites in the right upper quadrant. No free air. Dictated and Authenticated by: Wilfrid Torres MD. Orderin Osiel Mackey MD
[2025-01-10 03:32] LABS: ALT 32 U/L (16-63); AST 10 U/L (15-37); Alkaline Phosphatase 83 U/L (46-116); BUN 19 mg/dL (7-18); Bilirubin, Total 0.3 mg/dL (0.2-1.0); CREATININE 1.1 mg/dL (0.70-1.30); Chloride 100 mmol/L (98-107); Estimated GFR 80.27 (mL/min/1.73m2); Glucose 109 mg/dL (74-106); Lipase 19 U/L (<78); Magnesium 2.2 mg/dL (1.8-2.4); Potassium 4.6 mmol/L (3.5-5.1); Sodium 137 mmol/L (136-145); Total Protein 8.1 g/dL (6.4-8.2)
[2025-01-10 03:47] LABS: Bilirubin Negative (Negative); Blood Negative (Negative); Clarity Clear (Clear); Glucose Negative (Negative); Ketones Negative (Negative); Leukocyte Esterase Negative (Negative); Nitrite Negative (Negative); Specific Gravity <= 1.005 (1.005-1.025); Urobilinogen 0.2 mg/dL (Up to 0.2); pH 5.5 (5-8)
--- NOTE | 2025-01-10 04:39 | W.PM.HP.N ---
Date of service: 01/10/25 Time of Service: 04:39 Assessment and Plan Assessment and plan (1) Partial obstruction of small intestine: Status: Resolved Assessment and plan: Await input from . Place krishna. NPO IMPRESSION: 1. Mural thickening through the distal and terminal ileum suggesting acute ileitis. An acute Crohn's flare is suspected in a patient with a known history of Crohn's disease although infectious ileitis could have a similar appearance. Clinical correlation is recommended. 2. Prominent dilatation of the upstream small bowel in keeping with superimposed obstructive physiology probably caused by the aperistaltic inflamed ileal segment or and ileal stricture. Hazy fat stranding and a small amount of fluid in the subtending small bowel mesentery. 3. Small amount of ascites in the right upper quadrant. No free air. (2) Crohn's disease: Status: Chronic Assessment and plan: Currently on Remicade, plan for transfer to either [facility] or [facility], if the obstruction does not improve. At [facility], his radiologic electronic specialist is Dr. Tobin Cope at [facility], his radiologic electronic specialist is Dr. Davonte Alcaraz. (3) Abdominal pain: Status: Resolved Assessment and plan: He does have a diffuse abdominal pain, with guarding, his laboratory values and vital signs are normal. This level of pain, certainly can be seen in Crohn's, and the patient is not opiate na?ve. Clinically does not appear to represent generalized peritonitis. (4) Ileitis: Status: Acute Assessment and plan: await input from but most likely 2/2 crohn's and not infection History of Present Illness History of Present Illness Chief Complaint: abdominal pain Narrative: This is a 54-year-old gentleman with a known history of Crohn's disease presented to the ED today with worsening abdominal pain. While he was in the ED CT scan was done which was indicative of ileitis as well as a small bowel obstruction. I did discuss the case with the ED physician and recommended consulting general surgery and oncology in place but no recommendations have been made at this time. Of note, the patient was recently discharged from the hospital on the of this month for essentially the same presentation. Patient states that usually after he gets his Remicade infusions he gets episodes of small bowel obstruction. Patient states that on his last GI visit his Remicade was increased but is not sure why. Patient does appear to be visibly upset with the recent course of his disease. An NG tube has been ordered but at this point has not been placed due to reticence of the patient's part Review of Systems All systems reviewed & are unremarkable except as noted in HPI and below PFSH All Active Problems (Updated 01/10/25 @ 04:45 by Joe Sinclair MD) Ileitis (Acute) Ileitis (Acute) Small bowel obstruction (Acute) Diverticulosis (Acute) Crohn's disease (Chronic) Rotator cuff tear, right (Acute) Shoulder pain (Acute) Social History Smoking/Tobacco Use Status: Current every day Smoking risk assessment performed?: Yes Alcohol Intake: current Alcohol Intake frequency: a few times a week Alcohol type: beer, wine and hard liquor Drug use: Never Substance use type: does not use Housing: house Do you feel safe at home: Yes Do you feel safe in your relationship?: Yes Meds Allergies and Home Medications Allergies Allergy/AdvReac Type Severity Reaction Status Date / Time No Known Allergies Allergy Unverified 12/31/24 21:52 Home Medications ?Medication ?Instructions ?Recorded ?Confirmed ?Type infliximab 100 mg intravenous 1,100 mg IV Q30D 03/21/21 01/10/25 History solution (Remicade) naproxen 500 mg tablet (Naprosyn) 500 mg PO BID PRN #10 tabs 03/21/21 01/10/25 Rx Exam Narrative Exam Narrative: HEENT-normocephalic atraumatic mucous membranes moist oropharynx is clear Neck-no lymphadenopathy no JVD Cardiovascular-regular rate and rhythm no rubs gallops Lungs-clear to auscultation bilaterally with good air exchange Abdomen-bowel sounds active x 4 quadrants no significant tenderness to palpation Extremity-sinus clubbing or edema Neurologic-nonfocal exam Results Labs 01/10/25 02:33 01/10/25 02:33 Labs: Laboratory Results - last 24 hr 01/10/25 01/10/25 02:33 03:31 WBC 10.33 RBC 5.15 Hgb 15.6 Hct 46.8 MCV 91 MCH 30.3 MCHC 33.3 RDW 12.7 Plt Count 254 MPV 10.4 Immature Gran % 0.4 Neutrophils % 73.4 Lymphocytes % 15.4 Monocytes % 9.3 Eosinophils % 1.0 Basophils % 0.5 Nucleated RBC % 0.0 Absolute Neutrophils 7.59 H Absolute Lymphocytes 1.59 Absolute Monocytes 0.96 H Absolute Eosinophils 0.10 Absolute Basophils 0.05 Sodium 137 Potassium 4.6 Chloride 100 Carbon Dioxide 29.0 Anion Gap 8.0 BUN 19 H Creatinine 1.1 Est GFR (CKD-EPI 2020) 80.27 Glucose 109 H Calcium 9.0 Magnesium 2.2 Total Bilirubin 0.3 AST 10 L ALT 32 Alkaline Phosphatase 83 Total Protein 8.1 Albumin 4.0 Lipase 19 Urine Color Yellow Urine Clarity Clear Urine pH 5.5 Ur Specific [place] <= 1.005 Urine Protein Negative Urine Ketones Negative Urine Blood Negative Urine Nitrite Negative Urine Bilirubin Negative Urine Urobilinogen 0.2 Ur Leukocyte Esterase Negative Urine Glucose Negative Last Vital Signs Temp 36.7 C 01/10/25 02:13 Pulse 77 01/10/25 02:13 Resp 20 01/10/25 02:13 BP 163/101 H 01/10/25 02:13 Pulse Ox 99 01/10/25 02:13 Time Spent Time spent with Patient: 40-54 minutes Time was spent: preparing to see the patient(eg.review tests), obtaining and/or reviewing separately otained hiistory, ordering medications,tests, procedures, referring, communicating with other health home care manager, indepentently interpreting results, counseling the patient and care coordination
--- NOTE | 2025-01-10 05:28 | W.PC.ACHO ---
Registration Status: REG ER Primary Language: Preferred Language: ED Information & Data Chief Complaint Abd Prob 01/10/25 02:38 Triage Note 10 of 10 cramping pain in 01/10/25 02:11 upper abd woke PT up from sleep. Distended belly. Nausea, belching and gas. Most Recent Vital Signs Temperature 98.1 F 01/10/25 02:13 Pulse 77 01/10/25 02:13 Respiratory Rate 20 01/10/25 02:13 Blood Pressure 163/101 H 01/10/25 02:13 Blood Pressure Position Sitting 01/10/25 02:13 Pulse Oximetry 99 01/10/25 02:13 Oxygen Delivery Method Room Air 01/10/25 02:13 Oxygen Flow Rate 0 01/10/25 02:13 Allergies No Known Allergies Allergy (Unverified 12/31/24 21:52) Active Medications Generic Name Dose Route Start Last Admin Trade Name Freq PRN Reason Stop Dose Admin Fentanyl 50 mcg 01/10/25 03:00 01/10/25 03:54 Fentanyl 100 Mcg/2 Ml Vial IVP 50 mcg Q1H PRN PRN Administration Iohexol 100 ml 01/10/25 02:45 01/10/25 02:36 Omnipaque 350 Mg/Ml 100 Ml Btl IJ 02/09/25 23:59 100 ml DIRECTED CIELO Administration Sodium Chloride 50 ml 01/10/25 02:45 01/10/25 02:37 Normal Saline - Diluent 50 Ml Vial IJ 50 ml .FOR DI USE CIELO Administration IV IV Catheter Type [Left Saline Lock Antecubital] IV Catheter Gauge [Left 18 Antecubital] Diet Orders Category Date Time Status Nothing Per Oral [DIET] Nutrition 01/10/25 04:38 Active Diagnostics 01/10/25 01/10/25 Range/Units 03:31 02:33 WBC 10.33 (4.4-10.8) 10^3/uL RBC 5.15 (4.36-5.78) 10^6/uL Hgb 15.6 (13.5-17.5) g/dL Hct 46.8 (40.0-50.0) % MCV 91 (80-95) fL MCH 30.3 (27.0-33.0) pg MCHC 33.3 (32.0-36.0) % RDW 12.7 (11.8-14.1) % Plt Count 254 (130-400) 10^3/uL MPV 10.4 (8.0-11.0) fL Immature Gran % 0.4 % Neutrophils % 73.4 % Lymphocytes % 15.4 % Monocytes % 9.3 % Eosinophils % 1.0 % Basophils % 0.5 % Nucleated RBC % 0.0 (0.0-0.3) % Absolute Neutrophils 7.59 H (1.2-6.7) 10^3/uL Absolute Lymphocytes 1.59 (1.2-3.4) 10^3/uL Absolute Monocytes 0.96 H (0.1-0.8) 10^3/uL Absolute Eosinophils 0.10 (0.0-0.7) 10^3/uL Absolute Basophils 0.05 (0.0-0.2) 10^3/uL Sodium 137 (136-145) mmol/L Potassium 4.6 (3.5-5.1) mmol/L Chloride 100 (98-107) mmol/L Carbon Dioxide 29.0 (21.0-32.0) mmol/L Anion Gap 8.0 (3-11) mmol/L BUN 19 H (7-18) mg/dL Creatinine 1.1 (0.70-1.30) mg/dL Est GFR (CKD-EPI 2020) 80.27 (mL/min/1.73m2) Glucose 109 H (74-106) mg/dL Calcium 9.0 (8.5-10.1) mg/dL Magnesium 2.2 (1.8-2.4) mg/dL Total Bilirubin 0.3 (0.2-1.0) mg/dL AST 10 L (15-37) U/L ALT 32 (16-63) U/L Alkaline Phosphatase 83 (46-116) U/L Total Protein 8.1 (6.4-8.2) g/dL Albumin 4.0 (3.4-5.0) g/dL Lipase 19 (<78) U/L Urine Color Yellow (Yellow) Urine Clarity Clear (Clear) Urine pH 5.5 (5-8) Ur Specific [place] <= 1.005 (1.005-1.025) Urine Protein Negative (Neg-Trace) mg/dL Urine Ketones Negative (Negative) mg/dL Urine Blood Negative (Negative) Urine Nitrite Negative (Negative) Urine Bilirubin Negative (Negative) Urine Urobilinogen 0.2 (Up to 0.2) mg/dL Ur Leukocyte Esterase Negative (Negative) Urine Glucose Negative (Negative) mg/dL Intake and Output - 24 Hour Total 01/10/25 02:05 thru 01/10/25 03:27 Intake Total 100 Balance 100 Weight 108.862 kg Intake: IV 100 Falls Risk Assessment History of Falls No History 01/10/25 02:13 Contributing Factors No Factors 01/10/25 02:13 Ambulatory Aids Independent 01/10/25 02:13 Tubes/Lines None 01/10/25 02:13 Gait Evaluation No gait disturbance 01/10/25 02:13 Cognition No cognitive impairment 01/10/25 02:13 Fall Total Score 0 01/10/25 02:13 Level of Risk Standard/Low Risk 01/10/25 02:13 v v v v v v v v v Sending and/or Receiving Nurses: Please use comment section below to note any information pertinent to the patient hand-off not included above. Information / Comments: Has had increased symptoms since med changes per report, must admitted last week on for the same issues. Pt declines NG at this time. Report received from: Shahriar Meneses
[2025-01-10] MEDS: Normal Saline Flush 10 ML SYR (06:10)
[2025-01-10] MEDS: Lactated Ringers 1,000 ML 125 ML IV ×3 (06:10→23:02)
[2025-01-10] MEDS: Enoxaparin 40 MG/0.4 ML SYR SC (07:55)
--- NOTE | 2025-01-10 13:07 | PHA.REVIEW2 ---
Pharmacy Admission Review Admission Clinical Review Admission Pharmacy Review: Ileitis (Acute) No Known Allergies Allergy (Unverified 12/31/24 21:52) Resuscitation Status Full Code Height 5 ft 9 in Weight 112.3 kg Pharmacy Admission Review Renal Dosing Renal Dosing: BUN 19 mg/dL (7-18) H 01/10/25 02:33 Creatinine 1.1 mg/dL (0.70-1.30) 01/10/25 02:33 Medications needing adjustments: Reviewed (CrCl 95.9 mL/min) Anticoagulation Anticoagulation: Hgb 15.6 g/dL (13.5-17.5) 01/10/25 02:33 Hct 46.8 % (40.0-50.0) 01/10/25 02:33 Plt Count 254 10^3/uL (130-400) 01/10/25 02:33 Creatinine 1.1 mg/dL (0.70-1.30) 01/10/25 02:33 DVT Prophylaxis: Reviewed Medications: Enoxaparin (40mg daily) Opiate Usage Evaluate Pain Scale/Pains Meds: Reviewed (fentanyl 50mcg IVP q1h PRN - 300mcg / 24hrs) Scheduled Bowel Reg ordered if on Opiates?: No Relevant Labs Relevant Labs: Sodium 137 mmol/L (136-145) 01/10/25 02:33 Potassium 4.6 mmol/L (3.5-5.1) 01/10/25 02:33 Chloride 100 mmol/L (98-107) 01/10/25 02:33 Magnesium 2.2 mg/dL (1.8-2.4) 01/10/25 02:33 Electrolytes, C-Reactive P, ESR: Reviewed Cardiac Review BP, HR, EF%: Reviewed (HR and BP WNL) QTc Review QTc: Reviewed (393 from 01/10/25) IV to PO Switch IV Medications: Reviewed (NPO - NG tube) Home Meds Home Med List reviewed: Reviewed Relevent Home Meds Not ordered & why?: Remicade (monthly infusion) and naproxen (PRN) Current Meds Current Medication Order Review: Intervened Comments: Added IV admission access order set
--- NOTE | 2025-01-10 13:36 | INITIAL_ITS ---
Date of service: 01/10/25 Time of Service: 13:36 Care Management Initial Assmt Initial Assessment Reason for Hospitalization: small bowel obstruction Functional Status/Living Situation Patient Presentation: Ryan presented to the ED early this morning with c/o diffuse, severe abdominal pain. He was just discharged from [facility] on 01/03 for the same problem. He stated to the ED physician that after he gets Remicade for his Chron's disease, he gets episodes of small bowel obstruction. He stated that at his last infusion, his dose was increased, but he did not know why. CT of his abdomen showed ilieitis and small bowel obstruction. Ryan was sleeping most of the day, but CM did get a chance to speak with him later in the day. Ryan stated that he was doing well after his discharge, but wo ke very early this morning with severe abdominal pain. 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) Instrumental Activities of Daily Living (ADLs): Independent Medications Medication Management: No Issues/Barriers identified Advance Directives Advance Directives: Do you have an Advance Directive: N 04, 09:36 AD On File at [facility]: N 03/21/21, 09:36 Date Asked 12/31/24 12/31/24, 21:45 AD Date Reviewed COLST On File at [facility] COLST Date Scanned Code Status Resuscitation Status Full Code Insurance Coverage/Financial Issues Insurance: /[facility] Care Team Visit Care Team Role Provider Type Ruel Carnes MD [facility] STAFF PHYSICIAN Joe Larsen Primary Care Provider NON-[facility] STAFF PHYSICIAN Keyona Villanueva Other Providers HISTORICAL SOCIETY DIRECTOR Tami Lewis Other Providers HISTORICAL SOCIETY DIRECTOR Cinda Mccabe Other Providers HISTORICAL SOCIETY DIRECTOR Lauren Rowley RN Other Providers HISTORICAL SOCIETY DIRECTOR Yazmin Sinclair Other Providers HISTORICAL SOCIETY DIRECTOR Key Cartagena MD Emergency Provider [facility] STAFF PHYSICIAN Joe Sinclair MD Admit Provider [facility] STAFF PHYSICIAN Attending Provider Discharge Potential Discharge Needs: PCP F/U Appt and Surgical F/U Appt Anticipated Barriers to Discharge: None Identified Patient/Family Education Needs: Review discharge instructions, discuss Ask Me Three Transportation: Private vehicle Plan: Anticipate that Ryan will discharge home with no new services once medically cleared. He will f/u with the surgeon at a previously scheduled visit on 01/23, and with his PCP. He will continue per his plan of care and transport home in a private vehicle. CM will continue to follow. Social Determinants of Health Screening Social Determinants of health last assessed in clinic: 01/10/25 Will the Patient Participate in the Screening?: Yes Do you worry about having a steady place to live?: no Problems where you live: no known problems In the past 12 months, have you had to go without electric, gas, oil or water in your home?: no 1. Within the past 12 months, we worried whether our food would run out before we got money to buy more.: Never true 2. Within the past 12 months, the food we bought just didn't last and we didn't have money to get more.: Never true Has lack of transportation kept you from medical appointments or from doing things needed for daily living?: no Has anyone in your life made you feel unsafe or unsupported?: no How hard is it for you to pay for the very basics like food, housing, medical care, and heating? Would you say it is:: Not hard at all Do you want help finding or keeping work or a job?: I do not need or want help If for any reason you need help with day-to-day activities such as bathing, preparing meals, shopping, managing finances, etc., do you get the help you need?: I get all the help I need How often do you feel lonely or isolated from those around you?: Never Do you speak a language other than French at home?: Yes Does the patient want assistance with any of the above?: No Health Related Social Needs Health related social needs: education (Z55.6) Health related social needs details: NA PFSH All Active Problems (Updated 01/10/25 @ 04:45 by Joe Sinclair MD) Ileitis (Acute) Ileitis (Acute) Small bowel obstruction (Acute) Diverticulosis (Acute) Crohn's disease (Chronic) Rotator cuff tear, right (Acute) Shoulder pain (Acute) Social History Smoking/Tobacco Use Status: Current every day Smoking risk assessment performed?: Yes Alcohol Intake: current Alcohol Intake frequency: a few times a week Alcohol type: beer, wine and hard liquor Drug use: Never Substance use type: does not use Housing: house Do you feel safe at home: Yes Do you feel safe in your relationship?: Yes Readmission Within the Past 30 Days Yes or No: Yes Date of First Admission Date of 1st Admission: 01/01/25 Date of this Admission Date of Admission: 01/10/25 This admission was: Through ED Office Visit Since 1st Admission Have you seen your PCP in the office since discharge?: No Had an appointment Been Scheduled?: No Describe barriers for scheduling or getting an appointment: stated that he has been playing phone tag with his PCP office Speicalist Appointments Have you seen any other specialist since your 1st Admission?: No Specialist Seen: surgery f/u scheduled on 01/20. I. Interview patient and/or Family Difficulty reaching your doctor or getting an office appt?: Yes Have you had trouble purchasing/ or taking medication?: No Did you feel ready for discharge when you left the last time: Yes Did you call your physician beore you came to the ED?: No How do you think you became sick enough to come back?: maybe I over did it? ED visits How many ED visits in the past 12 months: 2
--- NOTE | 2025-01-10 13:45 | DI.RAD_ITS ---
Exam(s) XR PORTABLE CHEST AP EXAM: XR PORTABLE CHEST AP CLINICAL HISTORY: post line (NG tube) TECHNIQUE: 2D digital imaging was performed. COMPARISON: CR,XR XR PORTABLE CHEST AP POST LINE from 01/01/2025 FINDINGS: Nasogastric tube has been inserted. The tip projects in the stomach. Dilated loops of bowel are again noted in the left upper quadrant. LUNGS: Clear. No pleural abnormality seen. HEART: Normal size. AORTA: Normal diameter. BONES: Unremarkable for age. IMPRESSION: Satisfactory placement of nasogastric tube. DATA REPOSITORY: RADIATION DOSE DELIVERED:
--- NOTE | 2025-01-10 18:29 | W.SURGCON ---
Date of service: 01/10/25 Time of Service: 18:29 Assessment and Plan Assessment and plan (1) Ileitis: Status: Acute Assessment and plan: This appears consistent with a partial small bowel obstruction from stricturing of terminal ileitis. His hemodynamics and labs are reassuring. Based on the radiographic features, I am skeptical that this will completely resolve without surgery. However, the CT scan at [facility] in September of this year is quite similar, and he seems to have done okay at least transiently after that encounter. Otherwise, I do not have any other older imaging to compare it to. In that regards, it would be tempting to recommend an ileocecectomy, but based on the surgical history described in the [facility] consultation, I would imagine he has an extremely hostile abdomen, and I be worried that any surgery would be quite complicated and carry with it a significant amount of risk. In that regard, I wonder if there is any benefit to induction therapy in an effort to induce remission and see if that helps. I think it is very reasonable to reach out to Dr. Alcaraz, and see if they can review the images. It may be worth actually transferring him to [facility] if they are able to accommodate him. Alternatively, if they can recommend a medical regimen, I am more than happy to standby in case of an emergency. But I do think it is worth maximizing nonoperative measures in light of his history. History of Present Illness History of Present Illness Chief Complaint: Abdominal pain with nausea Narrative: Thierry is 54 years old, and I was asked to see him regarding my opinion on terminal ileitis and a small bowel obstruction. He is quite tired, and frustrated, and not really willing to engage in much detailed history. He referred me to the chart and his for details. I did call his , but that went to a voicemail. I did leave a message. With regards to this hospitalization, it looks like he came to the emergency department last night complaining of abdominal pain and nausea. This is after being discharged from [facility] on the . At that time, he had similar symptoms. He was admitted, underwent a CT scan that demonstrated thickened inflamed, and strictured terminal ileum with some element of small bowel obstruction. Symptoms improved within 24 hours, and he underwent a Gastrografin challenge that showed passage of contrast into the large intestine. He was discharged home and recommended to follow-up with his weight trainer. I do not see any new medications at the time of discharge, but Thierry did say that he was advised to start using Metamucil. He tells me he has been doing that. He says that the pain came back yesterday, and with the nausea, he felt like he needed come back to the hospital. He does say that he is feeling a little bit better now, compared to his admission, and he really just wants to be left alone to sleep. I am able to review his records from [facility]. It looks like he saw Dr. Alcaraz there on December 17, as a second opinion for the management of his Crohn's. That note describes ongoing management through [facility]. It says he is treated with Remicade. That note describes a first diagnosis of Crohn's in 2016 after acute bowel obstruction with a peritoneal abscess. It is unclear to me if he had an operation at that time. 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 He also presented to [facility]'s emergency department in September 2024. And a CT scan obtained at that time is quite similar to the CAT scan from last night, and his recent hospital admission here. It is describes inflammation and thickening of the terminal ileum. [facility] All Active Problems (Updated 01/10/25 @ 04:45 by Joe Sinclair MD) Ileitis (Acute) Ileitis (Acute) Small bowel obstruction (Acute) Diverticulosis (Acute) Crohn's disease (Chronic) Rotator cuff tear, right (Acute) Shoulder pain (Acute) Social History Smoking/Tobacco Use Status: Current every day Smoking risk assessment performed?: Yes Alcohol Intake: current Alcohol Intake frequency: a few times a week Alcohol type: beer, wine and hard liquor Drug use: Never Substance use type: does not use Housing: house Do you feel safe at home: Yes Do you feel safe in your relationship?: Yes Exam GI Other: His abdomen is soft, and not distended. He is not particularly tender. He is a little bit tympanitic. He has a nasogastric tube in place that has about 400 cc of nonbilious appearing drainage Results Last Vital Signs Temp 97.9 F 01/10/25 15:12 Pulse 64 01/10/25 15:12 Resp 16 01/10/25 15:12 BP 120/65 01/10/25 15:12 Pulse Ox 94 01/10/25 15:12 Labs 01/10/25 02:33 01/10/25 02:33 Labs: Laboratory Results - last 24 hr 01/10/25 01/10/25 02:33 03:31 WBC 10.33 RBC 5.15 Hgb 15.6 Hct 46.8 MCV 91 MCH 30.3 MCHC 33.3 RDW 12.7 Plt Count 254 MPV 10.4 Immature Gran % 0.4 Neutrophils % 73.4 Lymphocytes % 15.4 Monocytes % 9.3 Eosinophils % 1.0 Basophils % 0.5 Nucleated RBC % 0.0 Absolute Neutrophils 7.59 H Absolute Lymphocytes 1.59 Absolute Monocytes 0.96 H Absolute Eosinophils 0.10 Absolute Basophils 0.05 Sodium 137 Potassium 4.6 Chloride 100 Carbon Dioxide 29.0 Anion Gap 8.0 BUN 19 H Creatinine 1.1 Est GFR (CKD-EPI 2020) 80.27 Glucose 109 H Calcium 9.0 Magnesium 2.2 Total Bilirubin 0.3 AST 10 L ALT 32 Alkaline Phosphatase 83 Total Protein 8.1 Albumin 4.0 Lipase 19 Urine Color Yellow Urine Clarity Clear Urine pH 5.5 Ur Specific [place] <= 1.005 Urine Protein Negative Urine Ketones Negative Urine Blood Negative Urine Nitrite Negative Urine Bilirubin Negative Urine Urobilinogen 0.2 Ur Leukocyte Esterase Negative Urine Glucose Negative Imaging Abdomen CT scan report/results: report reviewed and image reviewed CT scan - pelvis: report reviewed and image reviewed
[2025-01-10] MEDS: Normal Saline Flush 10 ML SYR IVP (21:23)
[2025-01-11] MEDS: fentaNYL 100 MCG/2 ML VIAL 50 MCG IVP ×7 (02:00→12:34)
[2025-01-11] MEDS: Normal Saline Flush 10 ML SYR IVP ×4 (02:00→06:38)
[2025-01-11 07:32] VITALS: BP 133/82; PULSE 59; RESP 18; TEMP 35.8; O2SAT 94
[2025-01-11] MEDS: Lactated Ringers 1,000 ML 125 ML IV ×2 (07:54→16:41)
[2025-01-11] MEDS: Chloraseptic Spray 117 ML BTL MM (09:13)
[2025-01-11] MEDS: Enoxaparin 40 MG/0.4 ML SYR SC (09:48)
--- NOTE | 2025-01-11 09:51 | CMPROGNOTE_ITS ---
Date of service: 01/11/25 Time of Service: 14:18 Care Management Progress Note Progress Note Text Progress Note Text: Ryan was lying in bed, the room darkened, when CM met with him today. He still had his NGT in, and it appeared to be draining. He stated to CM that he does not want to stay for the whole weekend. He is really getting eager to leave. He asked CM to tell his provider that he would like to speak with him. This was done. Surgery consult would like to take a conservative approach, and avoid surgery if possible. Ryan has an extensive GI history, and surgery would be complicated. Discharge Potential Discharge Needs: PCP F/U Appt, Surgical F/U Appt and Other (GI f/u- has specialist at both [facility] and [facility]) Anticipated Barriers to Discharge: None Identified Patient/Family Education Needs: Review discharge instructions, discuss Ask Me Three Transportation: Private vehicle Plan: Anticipate that Ryan will discharge home with no new services once medically cleared. He will f/u with the surgeon at a previously scheduled visit on 01/23, and with his PCP. He will continue per his plan of care and transport home in a private vehicle. CM will continue to follow. Social Determinants of Health Screening Social Determinants of health last assessed in clinic: 01/11/25 Will the Patient Participate in the Screening?: Yes Do you worry about having a steady place to live?: no Problems where you live: no known problems In the past 12 months, have you had to go without electric, gas, oil or water in your home?: no 1. Within the past 12 months, we worried whether our food would run out before we got money to buy more.: Don't know/refused 2. Within the past 12 months, the food we bought just didn't last and we didn't have money to get more.: Don't know/refused Has lack of transportation kept you from medical appointments or from doing things needed for daily living?: no Has anyone in your life made you feel unsafe or unsupported?: no How hard is it for you to pay for the very basics like food, housing, medical care, and heating? Would you say it is:: Not hard at all Do you want help finding or keeping work or a job?: I do not need or want help If for any reason you need help with day-to-day activities such as bathing, preparing meals, shopping, managing finances, etc., do you get the help you need?: I get all the help I need How often do you feel lonely or isolated from those around you?: Never Do you speak a language other than [place] at home?: Yes Does the patient want assistance with any of the above?: No Health Related Social Needs Health related social needs: education (Z55.6) Health related social needs details: NA
[2025-01-11 11:15] VITALS: BP 136/74; PULSE 63; RESP 12; TEMP 36; O2SAT 95
--- NOTE | 2025-01-11 11:50 | CHAPLAIN ---
Thierry was in bed when I visited. He was admitted and discharged about a week ago for a similar issue. He said he's waiting for his and children to visit soon.
[2025-01-11] MEDS: HYDROmorphone 2 MG/ML SYR 1 MG IVP (14:19)
[2025-01-11 15:41] VITALS: BP 138/78; PULSE 64; RESP 15; TEMP 36.6; O2SAT 95
[2025-01-11 15:44] LABS: C-Reactive Protein 6.32 mg/dL (<or=0.5)
[2025-01-11] MEDS: methylPREDNISolone SUCC 125 MG VIAL 60 MG IVP (16:40)
[2025-01-11] MEDS: HYDROmorphone 2 MG/ML SYR IVP (16:40)
--- NOTE | 2025-01-11 17:12 | PGE_ITS ---
Date of Service Date of service: 01/11/25 Time of Service: 17:13 Assessment and Plan Assessment and plan (1) Partial obstruction of small intestine: Status: Resolved Assessment and plan: - As seen on CT abdomen pelvis - Similar to previous presentation - Discussed with general surgery believes operative management would not be the best interest at this time, however if patient does require surgical intervention would best be done at tertiary care center given complexity of patient's Crohn's history with multiple fistulas - Discussed with [facility] GI agreed with plan to start high-dose steroids patient does not make improvement discussed with [facility] general surgery for surgical intervention - Start prednisone 60 mg IV daily in the afternoon 01/11 - Okay to clamp NG tube for nutrition continues past medical or mode - Remains n.p.o., NG tube output significantly slows down can do clamping clear trial - Continue as needed Dilaudid (2) Crohn's disease: Status: Chronic Assessment and plan: -Currently on Remicade - Likely cause or contributing factor partial small bowel obstruction as noted above Subjective Subjective Interval history since last seen: Patient states that he understands and currently wishes to trial home dose steroids leading to increasing swelling inflammation related problems and his bowel obstruction in the setting of Crohn's. Exam Narrative Exam Narrative: Mildly uncomfortable appearing gentleman laying in bed, ANO x 4, heart regular rhythm, lungs, auscultation bilaterally, abdomen soft, with mild to moderate diffuse tenderness without guarding or rebound Objective Last Vital Signs Temp 97.9 F 01/11/25 15:41 Pulse 64 01/11/25 15:41 Resp 15 01/11/25 15:41 BP 138/78 01/11/25 15:41 Pulse Ox 95 01/11/25 15:41 Laboratory Results - last 24 hr 01/11/25 15:25 C-Reactive Protein 6.32 H Time Spent with Patient Time Spent with Patient: >50 minutes Time was spent: preparing to see the patient(eg.review tests), obtaining and/or reviewing separately otained hiistory, ordering medications,tests, procedures, referring, communicating with other health medicare compliance auditor, indepentently interpreting results, counseling the patient and care coordination
[2025-01-11 20:06] VITALS: BP 147/88; PULSE 68; RESP 20; TEMP 36; O2SAT 93
[2025-01-11 23:50] VITALS: BP 162/86; PULSE 73; RESP 20; TEMP 36.2; O2SAT 94
--- NOTE | 2025-01-12 | DI.RAD_ITS ---
Exam(s) XR ABDOMEN FLAT UPRIGHT EXAM: 2D digital imaging was performed. CLINICAL HISTORY: SBO. COMPARISON: CT CT ABDOMEN PELVIS W from 01/10/2025 TECHNIQUE: Supine and upright views of the abdomen were performed. Gastrografin was administered at 10 a.m.. Images were performed 1:53 p.m.. FINDINGS: BOWEL GAS PATTERN: A nasogastric tube is present within the stomach. The stomach has emptied. Contrast is noted in the stool small-bowel throughout the colon to the level of the rectum. There is dilatation of the proximal small bowel, seen in the central abdomen . The degree of distention appears to have decreased on the previous CT. CALCIFICATIONS: No urinary tract calcifications. OSSEOUS STRUCTURES: Normal for age. Visualized portions of chest: Unremarkable. Soft tissues: Unremarkable. IMPRESSION: Administered contrast is noted within small bowel and colon through the level of the rectum. Persistent mildly dilated loops of small bowel centrally which may indicate partial obstruction. The degree and extent of bowel dilatation appears improved when compared with the previous CT. The preliminary [facility] report was reviewed. DATA REPOSITORY: RADIATION DOSE DELIVERED:
[2025-01-12] MEDS: HYDROmorphone 2 MG/ML SYR IVP ×3 (00:44→21:01)
[2025-01-12] MEDS: Lactated Ringers 1,000 ML 125 ML IV ×3 (00:46→17:00)
[2025-01-12 04:07] VITALS: BP 124/80; PULSE 79; RESP 20; TEMP 36.7; O2SAT 95
[2025-01-12 07:31] LABS: HCT 38.3 % (40.0-50.0); HGB 13.1 g/dL (13.5-17.5); MCH 30.9 pg (27.0-33.0); MCHC 34.2 % (32.0-36.0); MCV 90 fL (80-95); MPV 10.9 fL (8.0-11.0); Platelet Count 230 10^3/uL (130-400); RBC 4.24 10^6/uL (4.36-5.78); RDW 12.3 % (11.8-14.1); RDW-SD 40.7 fL; WBC 7.75 10^3/uL (4.4-10.8)
[2025-01-12 07:34] LABS: Anion Gap 12.5 mmol/L (3-11); BUN 16 mg/dL (7-18); CO2 24.5 mmol/L (21.0-32.0); CREATININE 0.7 mg/dL (0.70-1.30); Calcium 8.6 mg/dL (8.5-10.1); Chloride 101 mmol/L (98-107); Estimated GFR 110.18 (mL/min/1.73m2); Glucose 107 mg/dL (74-106); Potassium 4.1 mmol/L (3.5-5.1); Sodium 138 mmol/L (136-145)
[2025-01-12 07:49] VITALS: BP 147/85; PULSE 68; RESP 15; TEMP 36.1; O2SAT 95
[2025-01-12] MEDS: methylPREDNISolone SUCC 125 MG VIAL 60 MG IVP (08:21)
[2025-01-12] MEDS: Normal Saline Flush 10 ML SYR IVP ×2 (08:24→21:01)
[2025-01-12] MEDS: Gastrografin 120 ML BTL PO (09:57)
--- NOTE | 2025-01-12 11:09 | PGE_ITS ---
Date of Service Date of service: 01/12/25 Time of Service: 11:09 Assessment and Plan Assessment and plan (1) Partial obstruction of small intestine: Status: Resolved Assessment and plan: - As seen on CT abdomen pelvis - Similar to previous presentation - Discussed with general surgery believes operative management would not be the best interest at this time, however if patient does require surgical intervention would best be done at tertiary care center given complexity of patient's Crohn's history with multiple fistulas - Discussed with [facility] agreed with plan to start high-dose steroids patient does not make improvement discussed with [facility] general surgery for surgical intervention - Start methylprednisolone 60 mg IV daily in the afternoon 01/11 - Okay to clamp NG tube for patient to be able to use bathroom - Ordered a dose of Gastrografin and follow-up x-ray on the morning of 01/12/2025, will follow-up results - Remains n.p.o., NG tube output significantly slows down can do clamping clear trial - Continue as needed Dilaudid (2) Crohn's disease: Status: Chronic Assessment and plan: -Currently on Remicade -Recently increased dose may be cause or contributing factor partial small bowel obstruction as noted above Subjective Subjective Interval history since last seen: Patient states that he feels a little better as compared to yesterday though is discouraged that nursing would not allow him to clamp his tube to use bathroom. I assured the patient that he would be allowed to do so today. He also understands plan to do Gastrografin and follow-up x-ray. Otherwise he has no other complaints concerns at this time. Exam Narrative Exam Narrative: Mildly uncomfortable appearing gentleman laying in bed, ANO x 4, heart regular rhythm, lungs, auscultation bilaterally, abdomen soft, with mild to moderate diffuse tenderness without guarding or rebound Objective Last Vital Signs Temp 97.0 F L 01/12/25 07:49 Pulse 68 01/12/25 07:49 Resp 15 01/12/25 07:49 BP 147/85 H 01/12/25 07:49 Pulse Ox 95 01/12/25 07:49 Laboratory Results - last 24 hr 01/11/25 01/12/25 15:25 06:48 WBC 7.75 RBC 4.24 L Hgb 13.1 L D Hct 38.3 L MCV 90 MCH 30.9 MCHC 34.2 RDW 12.3 Plt Count 230 MPV 10.9 Sodium 138 Potassium 4.1 Chloride 101 Carbon Dioxide 24.5 Anion Gap 12.5 H BUN 16 Creatinine 0.7 Est GFR (CKD-EPI 2020) 110.18 Glucose 107 H Calcium 8.6 C-Reactive Protein 6.32 H 6.90 H Time Spent with Patient Time Spent with Patient: >50 minutes Time was spent: preparing to see the patient(eg.review tests), obtaining and/or reviewing separately otained hiistory, ordering medications,tests, procedures, referring, communicating with other health nurse wound care, indepentently interpreting results, counseling the patient and care coordination
[2025-01-12 11:31] VITALS: BP 161/86; PULSE 66; RESP 18; TEMP 36.6; O2SAT 97
--- NOTE | 2025-01-12 15:19 | DI.[facility]_ITS ---
PROCEDURE INFORMATION: Exam: XR Abdomen Exam date and time: 01/12/2025 1:53 PM Age: 54 years old Clinical indication: Other: Sbo TECHNIQUE: Imaging protocol: Radiologic exam of the abdomen. Views: 2 Views. Upright and supine views. COMPARISON: CT ABDOMEN PELVIS W 01/10/2025 2:37 AM FINDINGS: Tubes, catheters and devices: Nasogastric tube noted in the stomach. Gastrointestinal tract: Radiopaque material is present in the small bowel and colon. There is a central opacified loop which is distended measuring nearly 5 cm in diameter. Distal small bowel loops appear decompressed. Air-fluid levels present on the upright exam. Intraperitoneal space: Normal. No free air. Bones/joints: Unremarkable for age. IMPRESSION: No evidence for complete obstruction. Central distended small bowel loops suggests partial small bowel obstruction. Dictated and Authenticated by: Eileen Davila MD. Orderin Claire Ordoñez MD
[2025-01-12 15:56] VITALS: BP 152/72; PULSE 72; RESP 14; TEMP 36.6; O2SAT 94
[2025-01-12 20:06] VITALS: BP 144/71; PULSE 69; RESP 20; TEMP 36.7; O2SAT 98
[2025-01-12 23:28] VITALS: BP 120/75; PULSE 58; RESP 18; TEMP 36.3; O2SAT 95
[2025-01-13 03:11] VITALS: BP 124/70; PULSE 54; RESP 20; TEMP 36.4; O2SAT 95
[2025-01-13] MEDS: methylPREDNISolone SUCC 125 MG VIAL 60 MG IVP (08:51)
--- NOTE | 2025-01-13 08:51 | DSE_ITS ---
Date of service: 01/13/25 Time of Service: 14:23 DS: Diagnosis Discharge Diagnosis (1) Partial obstruction of small intestine: Status: Resolved (2) Crohn's disease: Status: Chronic Discharge Plan Disposition Patient Disposition: Home Condition: Good Discharge Details Reason For Visit: SBO Admit Date/Time: 01/10/25 04:37 Admit Provider: Joe Sinclair Attending Provider: Joe Sinclair Primary Care Provider: Joe Larsen Hospital Course Hospital Course: Patient initially presented with signs and symptoms ultimately determined to be secondary to a partial small bowel obstruction. General surgery was consulted and given patient's significant history of Crohn's with multiple episodes of intra-abdominal abscesses and fistulas, did not believe that immediate surgical intervention would be the best course of action. Additionally[place] [facility] [place] was also consulted and they recommended medical management with the initiation of steroids. Patient was started on 60 mg of IV methylprednisolone and ultimately had improvement of his symptoms with sign ificant bowel movements and decrease in NG tube output. Patient was also able to tolerate advancement of diet. Ultimately, was determined that the patient was stable for discharge home. It is recommended the patient have very close follow-up appointments with [facility] gastroenterology and potentially general surgery. Home Meds and New Rx's Prescriptions: New hydromorphone [Dilaudid] 2 mg tablet 2 mg PO Q6H PRNQty: 7 0RF Continued infliximab [Remicade] 100 mg Recon Soln 1,100 mg IV Q30D naproxen [Naprosyn] 500 mg tablet 500 mg PO BID PRNQty: 10 0RF Discharge Instructions Stand Alone Forms: Nursing Discharge Form Referrals: [place] [place], [place]ology] Referral Note: A referral has been faxed, you may also call the office. Joe Larsen [Primary Care Provider, Medicine] Referral Note: Please call the office in the morning to set up a hospital follow up within 7-10 days. Activity:: Activity as Tolerated Equipment/Supplies:: No Equipment Needed Diet:: As Tolerated Discharge Orders Discharge Orders: Discharge Order (Routine); Ordered 01/13/25 Ordered By: Tiago Rangel Discharge Data Discharge Date/Time-TO BE ENTERED AT DEPARTURE: 01/13/25 09:36 DS: Summary Time Spent with Patient providing and/or coordinating discharge services: Greater than 30 minutes Status at Discharge Functional status at discharge: independent ambulation Overall status at discharge: patient is back to baseline Mental Status: mental status grossly normal Speech and Movement: speech and movement normal Mood: congruent mood Affect: normal affect Quality:SDOH Health Related Social Needs: Health related social needs education Health related social needs details NA Health related social needs details: NA Exam Narrative Exam Narrative: well appearing gentleman laying in bed, ANO x 4, heart regular rhythm, lungs, auscultation bilaterally, abdomen soft, minimal diffuse tenderness without guarding or rebound Psych Mental Status: mental status grossly normal Speech and Movement: speech and movement normal Mood: congruent mood Affect: normal affect DS: Data Vitals/I&O Vitals and I&O: Vital Signs Temperature 97.5 F L 01/13/25 03:11 Temperature Source Temporal Artery Scan 01/13/25 03:11 Pulse 54 L 01/13/25 03:11 Pulse Rhythm Regular 01/10/25 05:33 Respiratory Rate 20 01/13/25 03:11 Respiratory Effort Normal, Non-Labored 01/10/25 05:33 Respiratory Depth Normal 01/10/25 05:33 Respiratory Pattern Normal 01/10/25 05:33 Blood Pressure 124/70 01/13/25 03:11 Blood Pressure Mean 88 01/13/25 03:11 Blood Pressure Position Sitting 01/10/25 02:13 Pulse Oximetry 95 01/13/25 03:11 Oxygen Delivery Method Room Air 01/13/25 03:11 Oxygen Flow Rate 0 01/13/25 03:11 Pain Level 8 01/12/25 11:58 Comment RN notified 01/12/25 15:56 Intake & Output 01/12/25 01/13/25 01/13/25 17:59 05:59 17:59 Intake Total 1010 / 1010 1000 / 1000 Output Total 1200 / 1200 350 / 1550 Balance -190 / -190 -350 / -540 1000 / 1000 Weight 233 lb 14.567 oz Intake: IV 1010 / 1010 1000 / 1000 Output: Gastric Drainage 800 / 800 350 / 1150 Right Nare 800 / 800 350 / 1150 Urine 400 / 400 Other: Urine Color Yellow Urine Appearance Clear Urine Odor Normal PFSH All Active Problems (Updated 01/14/25 @ 00:03 by YVONNE GALLEGOS) Ileitis (Acute) Small bowel obstruction (Acute) Diverticulosis (Acute) Crohn's disease (Chronic) Rotator cuff tear, right (Acute) Shoulder pain (Acute) Social History Smoking/Tobacco Use Status: Current every day Smoking risk assessment performed?: Yes Alcohol Intake: current Alcohol Intake frequency: a few times a week Alcohol type: beer, wine and hard liquor Drug use: Never Substance use type: does not use Housing: house Do you feel safe at home: Yes Do you feel safe in your relationship?: Yes Time Spent with Patient Time Spent with Patient: <45 minutes Time was spent: preparing to see the patient(eg.review tests), obtaining and/or reviewing separately otained hiistory, ordering medications,tests, procedures, referring, communicating with other health care information associate, indepentently in terpreting results, counseling the patient and care coordination
--- NOTE | 2025-01-13 13:18 | PDOC.CMDIS ---
Date of service: 01/13/25 Time of Service: 13:18 LACE Index Scoring Tool Questions: Length of Stay (in days): 3 Was the patient admitted via the E.D.?: Yes E.D. Visits: 1 Answers: Total Score: 7 Risk of Readmission: Low Risk Care Management Discharge Plan Reason for Hospitalization: SBO Discharge Plan: Thierry returned home today with no new services. His son drove him home via private vehicle. He will follow up with his PCP and discharge plan of care. Patient/Family Education Needs: Review discharge instructions and limitations, discussion of self care needs including ask me three. SDOH Health Related Social Needs: Health related social needs education Health related social needs details NA Health related social needs details: NANDA
== END 2025-01-13 09:36 | disposition home or self-care (01) ==
LOC: ER 04:47 → MS 05:22
PROVIDERS: Admitting Provider Hospitalist; Emergency Provider Student in an Organized Health Care Education/Training Program; PCP Internal Medicine; Responsible Provider Family Medicine; Visit Provider Hospitalist
DX: K50.912 Crohn's disease, unspecified, with intestinal obstruction (principal); R10.84 Generalized abdominal pain; F17.210 Nicotine dependence, cigarettes, uncomplicated; Z79.620 Long term (current) use of immunosuppressive biologic; K50.918 Crohn's disease, unspecified, with other complication; K52.89 Other specified noninfective gastroenteritis and colitis
CPT/HCPCS: 00123; 36415; 80048; 80053; 83690; 85027; 93005; 96361; 96365; 96372; 96375; 96376; 99285; J1650; 71045; 74019; 74177; 81003; 83735; 85025; 86140; 93010; 99222; 99233; G0378; J0131; J1171; J1885; J2405; J2919; J3010; J3490

== ENCOUNTER 2025-01-28 02:45 | Outpatient (RCR) | payer BC, SELFPAY ==
[2025-01-28 12:10] VITALS: BP 148/100; PULSE 71; RESP 22; TEMP 37.1; O2SAT 98
[2025-01-28 12:30] LABS: HCT 42.8 % (40.0-50.0); HGB 14.1 g/dL (13.5-17.5); MCH 29.7 pg (27.0-33.0); MCHC 32.9 % (32.0-36.0); MCV 90 fL (80-95); MPV 10.6 fL (8.0-11.0); Platelet Count 207 10^3/uL (130-400); RBC 4.75 10^6/uL (4.36-5.78); RDW 12.7 % (11.8-14.1); RDW-SD 41.7 fL; WBC 9.66 10^3/uL (4.4-10.8)
[2025-01-28 13:14] LABS: ALT 31 U/L (16-63); AST 14 U/L (15-37); Albumin 3.8 g/dL (3.4-5.0); Alkaline Phosphatase 85 U/L (46-116); Bilirubin, Direct 0.1 mg/dL (0.0-0.2); Bilirubin, Total 0.3 mg/dL (0.2-1.0); C-Reactive Protein 1.12 mg/dL (<or=0.5); Total Protein 8.1 g/dL (6.4-8.2)
[2025-01-28 13:22] VITALS: BP 139/84; PULSE 69; RESP 20; TEMP 36.9; O2SAT 97
[2025-01-28] MEDS: Normal Saline Flush 10 ML SYR IVP (14:37)
[2025-01-28 14:41] VITALS: BP 139/84; PULSE 71; RESP 20; TEMP 36.9; O2SAT 97
== END 2025-02-14 23:59 | disposition home or self-care (01) ==
LOC: INF 02:45
PROVIDERS: PCP Internal Medicine; Visit Provider Family Medicine
DX: K50.919 Crohn's disease, unspecified, with unspecified complications (principal)
CPT/HCPCS: 80076; 85027; 96365; 96366; 86140; J1745

== ENCOUNTER 2025-02-22 00:59 | Outpatient (RCR) | payer BC, SELFPAY ==
[2025-02-22] MEDS: Normal Saline Flush 10 ML SYR IVP (13:04)
[2025-02-22 13:13] VITALS: BP 136/79; PULSE 69; RESP 17; TEMP 36.4; O2SAT 96
[2025-02-22 13:28] VITALS: BP 149/80; PULSE 70; RESP 17; TEMP 36.1; O2SAT 98
[2025-02-22 14:05] VITALS: BP 128/79; PULSE 71; RESP 20; TEMP 36.3; O2SAT 98
== END 2025-03-17 23:59 | disposition home or self-care (01) ==
LOC: INF 00:59
PROVIDERS: PCP Internal Medicine; Visit Provider Family Medicine
DX: K50.919 Crohn's disease, unspecified, with unspecified complications (principal)
CPT/HCPCS: 96365; J1745

== ENCOUNTER 2025-03-22 05:20 | Outpatient (RCR) | payer BC, SELFPAY ==
[2025-03-22 12:35] VITALS: BP 123/77; PULSE 63; RESP 18; TEMP 36.7; O2SAT 96
[2025-03-22] MEDS: Normal Saline Flush 10 ML SYR IVP (13:19)
[2025-03-22 13:40] VITALS: BP 131/81; PULSE 62; RESP 19; TEMP 36.6; O2SAT 95
[2025-03-22 14:30] VITALS: BP 137/84; PULSE 68; RESP 19; TEMP 36.4; O2SAT 95
== END 2025-04-16 23:59 | disposition home or self-care (01) ==
LOC: INF 05:20
PROVIDERS: PCP Internal Medicine; Visit Provider Family Medicine
DX: K50.012 Crohn's disease of small intestine with intestinal obstruction (principal)
CPT/HCPCS: 96365; J1745

== ENCOUNTER 2025-05-03 00:09 | Outpatient (RCR) | payer BC, SELFPAY ==
[2025-05-03 12:30] VITALS: BP 125/81; PULSE 65; RESP 19; TEMP 36.4; O2SAT 94
[2025-05-03] MEDS: Normal Saline Flush 10 ML SYR IVP (13:01)
[2025-05-03 13:23] VITALS: BP 125/76; PULSE 70; RESP 18; TEMP 36.4; O2SAT 95
[2025-05-03 14:12] VITALS: BP 121/74; PULSE 70; RESP 18; TEMP 36.2; O2SAT 95
== END 2025-05-17 23:59 | disposition home or self-care (01) ==
LOC: INF 00:09
PROVIDERS: PCP Internal Medicine; Visit Provider Family Medicine
DX: K50.012 Crohn's disease of small intestine with intestinal obstruction (principal)
CPT/HCPCS: 96365; J1745

== ENCOUNTER 2025-05-09 07:12 | Inpatient (IN) | payer BC, SELFPAY ==
[2025-05-09] VITALS (47 sets, daily range): BP systolic 109–172; BP diastolic 74–117; PULSE 63–120; RESP 16–20; TEMP 36.6–37.1; O2SAT 91–98
--- NOTE | 2025-05-09 07:43 | W.ED.GENAD ---
Discharge Plan Disposition Patient Disposition: Admit to [facility] Discharge Details Clinical Impression: Crohn's disease of small intestine with intestinal obstruction, Pancreatitis Admit Date/Time: 05/09/25 10:28 Admit Provider: Tiago Rangel Attending Provider: Tiago Rangel Primary Care Provider: Joe Larsen ED Provider: Ruel Rios Discharge Data Discharge Date/Time-TO BE ENTERED AT DEPARTURE: 05/09/25 13:53 HPI General Date/Time Provider Initiated Documentation: 05/09/25 07:42. HPI Narrative: MDM This is an uncomfortable appearing normothermic and not tachycardic 55-year-old male with Crohn's disease found to have bidirectional peristalsis and dilated loops of small bowel most consistent with SBO for which patient will be kept n.p.o. and undergo CT abdomen pelvis with IV contrast following labs. He is not vomiting at the moment and declines NG tube. He has no pain out of proportion to suggest necrotizing soft tissue infection. The rash to abdomen to suggest zoster. No right upper quadrant tenderness to suggest acute cholecystitis. No dysuria or frequency to suggest UTI. No flank pain to suggest ureterolithiasis. No pulsatile masses to suggest ruptured AAA and patient has no history of aneurysm. No chest pain to suggest ACS I did not obtain ECG. Will keep patient n.p.o. treat pain with hydromorphone with ondansetron and reassess. 8:09 AM CBC with leukocytosis. No anemia. No thrombocytopenia. 8:45 AM Comprehensive metabolic panel with no SHALOM. No acute electrolyte abnormalities. Mild anion gap. Very mild hyponatremia. Lipase 3 times upper limit of normal consistent with pancreatitis. May be reactive given SBO seen on bedside ultrasound. 10:30 AM I was in touch with Dr. Lima from general surgery. She recommended hospitalization and request hospitalization on the hospitalist service. I was in touch with Dr. Rangel who graciously agreed to accept the patient for hospitalization. HPI This is a patient with a history of Crohn's disease presenting with abdominal pain. The patient began experiencing abdominal discomfort around 5:00 PM on 05/08/2025, which was sudden in onset. The pain was accompanied by belching and a sensation of hardness on the left side of the abdomen. The patient reports nausea but has not experienced any episodes of vomiting. The last bowel movement was on 05/05/2025, and there has been minimal flatulence since then. 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 The patient was scheduled to meet with a colorectal surgeon at [facility] at 8:15 AM on 05/09/2025. The pain is described as occurring in waves, sometimes making it difficult to breathe. The patient reports no chest pain, recent kidney stones, burning during urination, fevers, or rashes on the stomach. The patient smokes cigarettes very little. There is no history of aneurysms. The patient took the last Dilaudid pill to manage the pain. Exam General: Uncomfortable-appearing in no acute distress speaking in complete sentences. Head: Normocephalic, atraumatic. Eye: Extraocular eye movements intact. No conjunctival injection. No scleral icterus. Ear, nose, mouth, throat: Grossly normal inspection. Normal voice, handling secretions normally. Neck: Trachea midline. Cardiovascular: Well-perfused distal extremities. Respiratory: Nonlabored respiration. Gastrointestinal: Nondistended abdomen. Soft. Left upper quadrant tenderness. No rebound. No guarding. Musculoskeletal: No edema. Moving all 4 extremities spontaneously. Skin: Normal for age and race, grossly normal temperature and turgor. No acute rash. Neurologic: Alert and appropriate, no apparent acute deficits. Related Data Home Medications Medication Instructions Recorded Confirmed infliximab 100 mg intravenous 1,100 mg IV Q30D 03/21/21 05/09/25 solution (Remicade) hydromorphone 2 mg tablet 2 mg PO Q6H PRN #7 tabs 01/13/25 05/09/25 (Dilaudid) multivitamin 1 tab PO DAILY 05/09/25 05/09/25 vitamin B complex (B-Complex 1 tab PO DAILY 05/09/25 05/09/25 tablet) Previous Rx's Medication Instructions Recorded hydromorphone 2 mg tablet 2 mg PO Q6H PRN #7 tabs 01/13/25 (Dilaudid) Allergies Allergy/AdvReac Type Severity Reaction Status Date / Time No Known Allergies Allergy Unverified 05/09/25 07:21 General Stated Complaint: Abd Prob ROCAEL: 2 Course Vital Signs Vital signs: Vital Signs Temperature 36.6 C 05/09/25 07:14 Pulse 86 05/09/25 07:14 Respiratory Rate 18 05/09/25 07:14 Blood Pressure 172/117 H 05/09/25 07:14 Pulse Oximetry 97 05/09/25 07:14 Temperature 36.6 C 05/09/25 07:30 Temperature Source Oral 05/09/25 07:30 Pulse 77 05/09/25 07:30 Respiratory Rate 18 05/09/25 07:30 Blood Pressure 165/106 H 05/09/25 07:30 Pulse Oximetry 96 05/09/25 07:30 Oxygen Delivery Method Room Air 05/09/25 07:30 Oxygen Flow Rate 0 05/09/25 07:30 Pain Level 10 05/09/25 07:30 Medical Decision Making Quality:SDOH Health Related Social Needs: Health related social needs education Health related social needs details NA PFSH All Active Problems (Updated 05/09/25 @ 13:37 by Jenny Lima MD) Obesity (Chronic) Pancreatitis (Chronic) Crohn's disease of small intestine with intestinal obstruction (Acute) Ileitis (Acute) Small bowel obstruction (Acute) Diverticulosis (Acute) Crohn's disease (Chronic) Rotator cuff tear, right (Acute) Shoulder pain (Acute) Social History Smoking/Tobacco Use Status: Current every day Smoking risk assessment performed?: Yes Alcohol Intake: current Alcohol Intake frequency: a few times a week Alcohol type: beer, wine and hard liquor Drug use: Never Substance use type: does not use Housing: house Do you feel safe at home: Yes Do you feel safe in your relationship?: Yes POCUS Exam (ED) Limited Appendix Exam DATE OF EXAM: 05/09/25 TIME OF EXAM: 07:58 PROVIDER THAT PERFORMED THE STUDY: Ruel Rios REASON FOR EXAM: Nausea VISUALIZED STRUCTURES: Other structure: Dilated loops of small bowel DIFFERENTIAL DIAGNOSES: Bidirectional peristalsis and dilated loops of small bowel consistent with SBO. Exam complete
[2025-05-09 07:57] LABS: Abs Immature Grans 0.04 10^3/uL (0.0-0.06); HCT 44.3 % (40.0-50.0); HGB 15.1 g/dL (13.5-17.5); Immature Grans % 0.4 %; MCH 30.1 pg (27.0-33.0); MCHC 34.1 % (32.0-36.0); MCV 88 fL (80-95); MPV 10.1 fL (8.0-11.0); Platelet Count 228 10^3/uL (130-400); RBC 5.02 10^6/uL (4.36-5.78); RDW 12.5 % (11.8-14.1); RDW-SD 40.5 fL; WBC 11.19 10^3/uL (4.4-10.8)
[2025-05-09] MEDS: Normal Saline 1,000 ML 1000 ML IV (07:57)
[2025-05-09] MEDS: Ondansetron 4 MG/2 ML VIAL IVP ×2 (07:59→14:23)
[2025-05-09] MEDS: HYDROmorphone 2 MG/ML SYR 1 MG IVP ×5 (08:01→19:45)
[2025-05-09 08:17] LABS: ALT 32 U/L (16-63); AST 20 U/L (15-37); Albumin 3.8 g/dL (3.4-5.0); Alkaline Phosphatase 87 U/L (46-116); Anion Gap 11.9 mmol/L (3-11); BUN 19 mg/dL (7-18); Bilirubin, Total 0.5 mg/dL (0.2-1.0); CO2 22.1 mmol/L (21.0-32.0); Calcium 9.1 mg/dL (8.5-10.1); Chloride 99 mmol/L (98-107); Glucose 112 mg/dL (74-106); Lipase 291 U/L (<78); Potassium 4.5 mmol/L (3.5-5.1); Sodium 133 mmol/L (136-145); Total Protein 8.5 g/dL (6.4-8.2)
[2025-05-09] MEDS: Omnipaque 350 MG/ML 500 ML BTL-Imaging package IJ (09:02)
--- NOTE | 2025-05-09 09:09 | DI.CT_ITS ---
Exam(s) CT ABDOMEN PELVIS W EXAM: CT ABDOMEN PELVIS W CLINICAL HISTORY: Abdominal pain Crohn's TECHNIQUE: Imaging Protocol: Axial computed tomography images with coronal and sagittal reformatted images were created and reviewed. CONTRAST MATERIAL: Intravenous: Omnipaque 350 Contrast volume:100 mL Oral: No COMPARISON: CT CT THORAX ABD/PEL CTA from 12/31/[address] ABDOMEN PELVIS W from 01/10/2025 FINDINGS: ABDOMEN: Lung Bases: No acute abnormality. Liver: Normal density. No measurable mass. Portal, Superior Mesenteric, and Splenic Veins: Unremarkable. Gallbladder and Biliary Tract: No radiodense calculus or dilation. Pancreas: Normal density, no abnormal calcifications or inflammatory process. Spleen: Normal. Adrenals: No masses seen. Kidneys: Normal size, contour and axis. No radiodense stones or obstructive uropathy. There is a simple cyst on the right kidney. No follow-up is recommended. Abdominal Aorta: Abdominal portion non-dilated. Atherosclerotic calcification is present. Bowel: There is mild thickening of the wall of the terminal ileum. There is dilatation of the small bowel proximally with air-fluid level seen. The colon is of normal caliber. There are few diverticula seen in the colon but no evidence of acute diverticulitis. There is no evidence of an appendicitis. Peritoneal Cavity: No ascites, collection or mesenteric inflammatory response. No free air. Lymph Nodes: There are mildly prominent lymph nodes seen in the mesentery. Bones: Within normal limits for the patient's age. There has been no change in appearance of the bones compared to the prior examination. Soft Tissues: There are small fat containing inguinal hernias. PELVIS: Bladder: The urinary bladder is incompletely distended but grossly unremarkable. Reproductive Organs: Unremarkable as visualized. Lymph Nodes: Within normal limits. Bones: Within normal limits for the patient's age. IMPRESSION: 1. There is thickening of the wall of the terminal ileum. This can be seen with inflammatory bowel disease such as Crohn's. An infectious ileitis cannot be excluded. 2. There is dilatation of the bowel upstream which can reflect obstruction. Ileus could also be considered. RADIATION DOSE DELIVERED: 1,108.34mGy.cm Total DLP DATA REPOSITORY: All CT scans at this facility are submitted to the National Radiology Data Registry (NRDR) Dose Index Registry (DIR) with the [employer] (ACR). RADIATION OPTIMIZATION: All CT scans at this facility use at least one of these dose optimization techniques: automated exposure control; mA and/or kV adjustment per patient size (includes targeted exams where dose is matched to clinical indication); or iterative reconstruction.
--- NOTE | 2025-05-09 10:29 | W.PM.HP.N ---
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 status (2) Pancreatitis: Status: Chronic Assessment and plan: - Likely secondary to localized inflammation from small bowel obstruction (3) Crohn's disease of small intestine with intestinal obstruction: Status: Acute Assessment and plan: - Without acute flare at this time - Remicade was last taken on 05/03/2025 History of Present Illness History of Present Illness Chief Complaint: abdominal pain Narrative: 55-year-old male with a past medical history of Crohn's disease and small bowel obstruction conservatively treated here and December 2024 who presents to the emergency department with complaints of abdominal pain. He states that he began to experience abdominal discomfort around 5 PM on 05/08/2025 that was sudden onset. Associated with burping and feeling like the left side of his abdomen was hard. Reports some nausea but no vomiting and last bowel movement was 05/05/2025 with minimal flatulence since that time. He states he has a known stricture between the small and large intestine and was scheduled to be with colorectal surgery at [facility] this morning. It was described as occurring in waves sometimes making it difficult to breathe but he denies any chest pain, headache, dizziness, lightheadedness. In the emergency department patient was noted as having normal physical exam with the exception of left upper quadrant tenderness. CBC and CMP were unremarkable, though patient did have elevated lipase that may be consistent with a small bowel obstruction that was seen on CT. Emergency room provider consulted general surgery who recommended admission to medicine service. At which time emergency room provider paged hospitalist for admission for patient with small bowel obstruction. Review of Systems All systems reviewed & are unremarkable except as noted in HPI and below PFSH All Active Problems (Updated 05/09/25 @ 13:37 by Jenny Lima MD) Obesity (Chronic) Pancreatitis (Chronic) Crohn's disease of small intestine with intestinal obstruction (Acute) Ileitis (Acute) Small bowel obstruction (Acute) Diverticulosis (Acute) Crohn's disease (Chronic) Rotator cuff tear, right (Acute) Shoulder pain (Acute) Social History Smoking/Tobacco Use Status: Current every day Smoking risk assessment performed?: Yes Alcohol Intake: current Alcohol Intake frequency: a few times a week Alcohol type: beer, wine and hard liquor Drug use: Never Substance use type: does not use Housing: house Do you feel safe at home: Yes Do you feel safe in your relationship?: Yes Meds Allergies and Home Medications Allergies Allergy/AdvReac Type Severity Reaction Status Date / Time No Known Allergies Allergy Unverified 05/09/25 07:21 Home Medications Medication Instructions Recorded Confirmed Type infliximab 100 mg intravenous 1,100 mg IV Q30D 03/21/21 05/09/25 History solution (Remicade) hydromorphone 2 mg tablet 2 mg PO Q6H PRN #7 tabs 01/13/25 05/09/25 Rx (Dilaudid) multivitamin 1 tab PO DAILY 05/09/25 05/09/25 History vitamin B complex (B-Complex 1 tab PO DAILY 05/09/25 05/09/25 History tablet) Exam Narrative Exam Narrative: Uncomfortable appearing gentleman laying in bed and moderate distress due to abdominal discomfort, ANO x 4, heart regular rhythm, lungs clear to auscultation bilaterally, abdomen distended with diffuse tenderness throughout Results Labs 05/09/25 07:43 05/09/25 07:43 Labs: Laboratory Results - last 24 hr 05/09/25 07:43 WBC 11.19 H RBC 5.02 Hgb 15.1 Hct 44.3 MCV 88 MCH 30.1 MCHC 34.1 RDW 12.5 Plt Count 228 MPV 10.1 Immature Gran % 0.4 Neutrophils % 74.6 Lymphocytes % 14.4 Monocytes % 9.8 Eosinophils % 0.4 Basophils % 0.4 Nucleated RBC % 0.0 Absolute Neutrophils 8.35 H Absolute Lymphocytes 1.61 Absolute Monocytes 1.10 H Absolute Eosinophils 0.04 Absolute Basophils 0.04 Sodium 133 L Potassium 4.5 Chloride 99 Carbon Dioxide 22.1 Anion Gap 11.9 H BUN 19 H Creatinine 1.0 Est GFR (CKD-EPI 2020) 89.44 Glucose 112 H Calcium 9.1 Total Bilirubin 0.5 AST 20 ALT 32 Alkaline Phosphatase 87 Total Protein 8.5 H Albumin 3.8 Lipase 291 H Last Vital Signs Temp 97.9 F 05/09/25 07:30 Pulse 66 05/09/25 10:20 Resp 18 05/09/25 07:30 BP 139/74 05/09/25 08:31 Pulse Ox 91 L 05/09/25 10:10 Time Spent Time spent with Patient: >75 minutes Time was spent: preparing to see the patient(eg.review tests), obtaining and/or reviewing separately otained hiistory, ordering medications,tests, procedures, referring, communicating with other health rn transitional care, indepentently interpreting results, counseling the patient and care coordination
--- NOTE | 2025-05-09 13:26 | W.SURGCON ---
Date of service: 05/09/25 Time of Service: 13:26 Assessment and Plan Assessment and plan (1) Crohn's disease of small intestine with intestinal obstruction: Status: Acute Assessment and plan: reviewed CT images, vitals and labs. Small bowel obstruction with transition point in terminal ileum at known site of crohns stricture. Discussed the best chances of clearing the obstruction without surgery occur with full management including NG decompression, fluid resuscitation, electrlyte management, plus possible additions of antibiotics or steroids if this is from an acute flair. He is agreeable to NG tube after he gets to a hospital room out of the ER. I told him I would place the order for tube placement. Daily electrolyte checks and management Fluid resuscitation complete bowel rest - NPO. He does not appear to be in crohns flair otherwise. Last remicaide infusion was 6 days ago. Hold on steroids at this time. Consider antibiotics. Ok to give dvt chemoprophylaxis from my standpoint. I dont see an indication for emergent surgical intervention at this time. If he does not resolve this obstruction with nonop management I recommend sending him to [facility] where he can be managed by colorectal surgery and GI. (2) Obesity: Status: Chronic (3) Ileitis: Status: Acute History of Present Illness History of Present Illness Chief Complaint: crohns disease, SBO Narrative: 55yo M with crohns disease and a stricture of the terminal ileum. He presented to the ER today with abd pain, bloating and nausea. He has not vomited. Symptoms reminded him of SBO he has had before, most recently in 12/2024. He was admitted with SBO here in december and treated with NG tube decompression, fluids, lytes management,and resolved his obstruction, He says he has been hospitalized with maybe 6 obstructions over the last 14 years since his crohns diagnosis. He has had 3 this year alone he tells me. He initially declined NG tube, explains that he hoped he had come in soon enough to be able to avoid one. He told me he would be willing to have one once he gets up to a regular room from the emergency department. He told me he has not vomited. He was emotional and increasingly agitated as I visited with him and told me to leave his room. He explained that he felt I was being too fast and too forward and aggressive with asking him about his obstruction. He told me that is a trend at this hospital that he gets treated poorly. He was forgotten about for 3 days at his last hospitalization he says, and hates the bedside manner of the physicians and nurses here, myself included. I apologized for upsetting him and left as he shouted at me to leave. I did not get to finish obtaining a full HPI from him, and I did not get to physically examine him before he asked me to leave. PFSH All Active Problems (Updated 05/09/25 @ 13:37 by Jenny Lima MD) Obesity (Chronic) Pancreatitis (Chronic) Crohn's disease of small intestine with intestinal obstruction (Acute) Ileitis (Acute) Small bowel obstruction (Acute) Diverticulosis (Acute) Crohn's disease (Chronic) Rotator cuff tear, right (Acute) Shoulder pain (Acute) Social History Smoking/Tobacco Use Status: Current every day Smoking risk assessment performed?: Yes Alcohol Intake: current Alcohol Intake frequency: a few times a week Alcohol type: beer, wine and hard liquor Drug use: Never Substance use type: does not use Housing: house Do you feel safe at home: Yes Do you feel safe in your relationship?: Yes Exam Narrative Exam Narrative: awake, agitated, closes his eyes and covers them with his hands as he talks. eomi, MMM midline trachea, neck is symmetric PULM: normal resp effort, equal chest rise with respiration, no wheezing audible CARDIAC: regular rate abdomen is obese and rounded extremities are without deformity, normal movement of all four extremities observed speech is clear and coherent mood and affect are congruent, he is tearful, agitated, angry, hurt skin without rash Results Last Vital Signs Temp 98.4 F 05/09/25 10:42 Pulse 72 05/09/25 10:42 Resp 16 05/09/25 10:42 BP 132/88 05/09/25 10:42 Pulse Ox 94 05/09/25 10:42 Labs 05/09/25 07:43 05/09/25 07:43 Labs: Laboratory Results - last 24 hr 05/09/25 07:43 WBC 11.19 H RBC 5.02 Hgb 15.1 Hct 44.3 MCV 88 MCH 30.1 MCHC 34.1 RDW 12.5 Plt Count 228 MPV 10.1 Immature Gran % 0.4 Neutrophils % 74.6 Lymphocytes % 14.4 Monocytes % 9.8 Eosinophils % 0.4 Basophils % 0.4 Nucleated RBC % 0.0 Absolute Neutrophils 8.35 H Absolute Lymphocytes 1.61 Absolute Monocytes 1.10 H Absolute Eosinophils 0.04 Absolute Basophils 0.04 Sodium 133 L Potassium 4.5 Chloride 99 Carbon Dioxide 22.1 Anion Gap 11.9 H BUN 19 H Creatinine 1.0 Est GFR (CKD-EPI 2020) 89.44 Glucose 112 H Calcium 9.1 Total Bilirubin 0.5 AST 20 ALT 32 Alkaline Phosphatase 87 Total Protein 8.5 H Albumin 3.8 Lipase 291 H
--- NOTE | 2025-05-09 15:02 | PHA.REVIEW2 ---
Pharmacy Admission Review Admission Clinical Review Admission Pharmacy Review: Crohn's disease of small intestine with intestinal obstruction (Acute) Ileitis (Acute) Small bowel obstruction (Acute) No Known Allergies Allergy (Unverified 05/09/25 07:21) Resuscitation Status Full Code Height 5 ft 7 in Weight 117.3 kg Pharmacy Admission Review Renal Dosing Renal Dosing: BUN 19 mg/dL (7-18) H 05/09/25 07:43 Creatinine 1.0 mg/dL (0.70-1.30) 05/09/25 07:43 Medications needing adjustments: Reviewed (CrCl 103.4 mL/min) List of meds needing interventions: Current medications are okay Anticoagulation Anticoagulation: Hgb 15.1 g/dL (13.5-17.5) 05/09/25 07:43 Hct 44.3 % (40.0-50.0) 05/09/25 07:43 Plt Count 228 10^3/uL (130-400) 05/09/25 07:43 Creatinine 1.0 mg/dL (0.70-1.30) 05/09/25 07:43 DVT Prophylaxis: Reviewed (none at this time - surg consult) Opiate Usage Evaluate Pain Scale/Pains Meds: Reviewed (hydromorphone 1mg IVP q4h PRN - 3mg/24hrs) Scheduled Bowel Reg ordered if on Opiates?: No (PRN Miralax) Relevant Labs Relevant Labs: Sodium 133 mmol/L (136-145) L 05/09/25 07:43 Potassium 4.5 mmol/L (3.5-5.1) 05/09/25 07:43 Chloride 99 mmol/L (98-107) 05/09/25 07:43 Electrolytes, C-Reactive P, ESR: Reviewed (WBC 11.19) Cardiac Review BP, HR, EF%: Reviewed (BP and HR WNL) QTc Review QTc: Reviewed (393 from 01/10/25) IV to PO Switch IV Medications: Reviewed (NPO at this time) Home Meds Home Med List reviewed: Reviewed Relevent Home Meds Not ordered & why?: Remicade (monthly), multivitamin and vitamin B complex Current Meds Current Medication Order Review: Intervened Comments: Added IV access order
--- NOTE | 2025-05-09 15:47 | W.PC.ACHO ---
Registration Status: ADM IN Primary Language: Preferred Language: ED Information & Data Chief Complaint Abd Prob 05/09/25 07:43 Triage Note pt concerned for bowel 05/09/25 07:14 obstruction. hx multiple obstructions. has appt with colorectal surgeons this morning at [facility] [place]. infusions every 6 weeks for Crohn's. took last dilaudid at 6am. denies fever or chills. Most Recent Vital Signs Temperature 36.9 C 05/09/25 13:40 Temperature Source Tympanic 05/09/25 10:42 Pulse 72 05/09/25 13:40 Respiratory Rate 16 05/09/25 13:40 Blood Pressure 132/88 05/09/25 13:40 Blood Pressure Mean 97 05/09/25 13:31 Pulse Oximetry 94 05/09/25 13:40 Oxygen Delivery Method Room Air 05/09/25 10:42 Oxygen Flow Rate 0 05/09/25 10:42 Pain Level 4 05/09/25 13:40 Comment pt asleep at this time 05/09/25 15:21 Allergies No Known Allergies Allergy (Unverified 05/09/25 07:21) Active Medications Generic Name Dose Route Start Last Admin Trade Name Freq PRN Reason Stop Dose Admin Hydromorphone HCl 1 mg 05/09/25 12:17 05/09/25 12:27 Hydromorphone 2 Mg/Ml Syr IVP 1 mg Q4H PRN PRN Administration Ondansetron HCl 4 mg 05/09/25 13:58 05/09/25 14:23 Ondansetron 4 Mg/2 Ml Vial IVP 4 mg Q4H PRN PRN Administration IV IV Catheter Type [Right Saline Lock Antecubital] IV Catheter Gauge [Right 18 Antecubital] Diet Orders Category Date Time Status npo [Nothing Per Oral] [DIET] Nutrition 05/09/25 08:00 Active Diagnostics 05/09/25 Range/Units 07:43 WBC 11.19 H (4.4-10.8) 10^3/uL RBC 5.02 (4.36-5.78) 10^6/uL Hgb 15.1 (13.5-17.5) g/dL Hct 44.3 (40.0-50.0) % MCV 88 (80-95) fL MCH 30.1 (27.0-33.0) pg MCHC 34.1 (32.0-36.0) % RDW 12.5 (11.8-14.1) % Plt Count 228 (130-400) 10^3/uL MPV 10.1 (8.0-11.0) fL Immature Gran % 0.4 % Neutrophils % 74.6 % Lymphocytes % 14.4 % Monocytes % 9.8 % Eosinophils % 0.4 % Basophils % 0.4 % Nucleated RBC % 0.0 (0.0-0.3) % Absolute Neutrophils 8.35 H (1.2-6.7) 10^3/uL Absolute Lymphocytes 1.61 (1.2-3.4) 10^3/uL Absolute Monocytes 1.10 H (0.1-0.8) 10^3/uL Absolute Eosinophils 0.04 (0.0-0.7) 10^3/uL Absolute Basophils 0.04 (0.0-0.2) 10^3/uL Sodium 133 L (136-145) mmol/L Potassium 4.5 (3.5-5.1) mmol/L Chloride 99 (98-107) mmol/L Carbon Dioxide 22.1 (21.0-32.0) mmol/L Anion Gap 11.9 H (3-11) mmol/L BUN 19 H (7-18) mg/dL Creatinine 1.0 (0.70-1.30) mg/dL Est GFR (CKD-EPI 2020) 89.44 (mL/min/1.73m2) Glucose 112 H (74-106) mg/dL Calcium 9.1 (8.5-10.1) mg/dL Total Bilirubin 0.5 (0.2-1.0) mg/dL AST 20 (15-37) U/L ALT 32 (16-63) U/L Alkaline Phosphatase 87 (46-116) U/L Total Protein 8.5 H (6.4-8.2) g/dL Albumin 3.8 (3.4-5.0) g/dL Lipase 291 H (<78) U/L Intake and Output - 24 Hour Total 05/09/25 07:12 thru 05/09/25 09:15 Intake Total 1020 Balance 1020 Weight 117.3 kg Intake: IV 1020 Falls Risk Assessment Contributing Factors No Factors 10/23/25 07:29 Fall Total Score 0 05/09/25 07:29 Level of Risk Standard/Low Risk 05/09/25 07:29 Problems (Last Reviewed 05/09/25 @ 13:35 by Jenny Lima MD) Obesity (Chronic) Pancreatitis (Chronic) Crohn's disease of small intestine with intestinal obstruction (Acute) Ileitis (Acute) Small bowel obstruction (Acute) v v v v v v v v v Sending and/or Receiving Nurses: Please use comment section below to note any information pertinent to the patient hand-off not included above. Information / Comments: Pt with history of SBO presents with SBO since last night, received fluid, pt is not surgical candidate at the facility, [facility] gastro patient, here for medical management, NGT, pain control. Report received from:ELI Marks
[2025-05-09] MEDS: Normal Saline Flush 10 ML SYR IVP (16:45)
[2025-05-10] MEDS: DEXTROSE 5%-0.45% SALINE 1,000 ML 100 ML IV ×2 (01:17→12:26)
[2025-05-10] MEDS: HYDROmorphone 2 MG/ML SYR IVP ×2 (01:20→08:24)
[2025-05-10 05:15] VITALS: BP 130/89; PULSE 71; RESP 16; TEMP 36.3; O2SAT 100
[2025-05-10 06:53] LABS: HCT 39.5 % (40.0-50.0); MCH 30.5 pg (27.0-33.0); MCHC 33.2 % (32.0-36.0); MPV 10.4 fL (8.0-11.0); Platelet Count 196 10^3/uL (130-400); RBC 4.29 10^6/uL (4.36-5.78); RDW 12.7 % (11.8-14.1); RDW-SD 42.8 fL; WBC 6.64 10^3/uL (4.4-10.8)
[2025-05-10 07:02] LABS: Anion Gap 8.5 mmol/L (3-11); BUN 17 mg/dL (7-18); CO2 26.5 mmol/L (21.0-32.0); Calcium 7.9 mg/dL (8.5-10.1); Chloride 102 mmol/L (98-107); Glucose 121 mg/dL (74-106); HGB 13.1 g/dL (13.5-17.5); MCV 92 fL (80-95); Magnesium 1.8 mg/dL (1.8-2.4); Potassium 3.9 mmol/L (3.5-5.1); Sodium 137 mmol/L (136-145)
[2025-05-10 07:46] VITALS: BP 133/88; PULSE 69; RESP 16; TEMP 36.7; O2SAT 95
--- NOTE | 2025-05-10 08:30 | PDOC.CMIN ---
Date of service: 05/10/25 Time of Service: 08:31 Care Management Initial Assmt Initial Assessment Reason for Hospitalization: SBO Functional Status/Living Situation Patient Presentation: Thierry who prefers Ryan was sitting up in the chair when CM met with him. Thierry presented to the ED yesterday with abdominal pain. After some tested this was found to be most consistant with SBO. He is npo asw of yesterday. 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) Instrumental Activities of Daily Living (ADLs): Independent Medications Medication Management: No Issues/Barriers identified Advance Directives Advance Directives: Do you have an Advance Directive: N 03/21/21, 09:36 AD On File at [facility]: N 03/21/21, 09:36 Date Asked 05/09/25 05/09/25, 07:22 AD Date Reviewed COLST On File at [facility] COLST Date Scanned Code Status Resuscitation Status Full Code Portal Pt does not currently have a portal and education provided: Yes Insurance Coverage/Financial Issues Insurance: /[facility] - [id number] Care Team Visit Care Team Role Provider Type Sai Killian MD MD [facility] STAFF PHYSICIAN Joe Larsen Primary Care Provider NON-[facility] STAFF PHYSICIAN Ruel Rios MD Emergency Provider [facility] STAFF PHYSICIAN Tiago Rangel MD Admit Provider [facility] STAFF PHYSICIAN Attending Provider Discharge Potential Discharge Needs: PCP F/U Appt and Surgical F/U Appt Anticipated Barriers to Discharge: None Identified Patient/Family Education Needs: Review discharge instructions, discuss Ask Me Three Transportation: Private vehicle Plan: Anticipate that Ryan will discharge home with no new services once medically cleared. He will f/u with the surgeon at a previously scheduled visit on 01/23, and with his PCP. He will continue per his plan of care and transport home in a private vehicle. CM will continue to follow. Social Determinants of Health Screening Will the Patient Participate in the Screening?: Declined to provide Do you worry about having a steady place to live?: choose not to answer PFSH All Active Problems (Updated 05/09/25 @ 13:37 by Jenny Lima MD) Obesity (Chronic) Pancreatitis (Chronic) Crohn's disease of small intestine with intestinal obstruction (Acute) Ileitis (Acute) Small bowel obstruction (Acute) Diverticulosis (Acute) Crohn's disease (Chronic) Rotator cuff tear, right (Acute) Shoulder pain (Acute) Social History Smoking/Tobacco Use Status: Current every day Smoking risk assessment performed?: Yes Alcohol Intake: current Alcohol Intake frequency: a few times a week Alcohol type: beer, wine and hard liquor Drug use: Never Substance use type: does not use Housing: house Do you feel safe at home: Yes Do you feel safe in your relationship?: Yes Readmission Within the Past 30 Days Yes or No: No
[2025-05-10 11:10] VITALS: BP 145/95; PULSE 77; RESP 16; TEMP 36.6; O2SAT 97
--- NOTE | 2025-05-10 12:25 | PDOC.CMDIS ---
Date of service: 05/10/25 Time of Service: 12:25 LACE Index Scoring Tool Questions: Length of Stay (in days): 1 Was the patient admitted via the E.D.?: Yes E.D. Visits: 3 Answers: Total Score: 7 Risk of Readmission: Low Risk Care Management Discharge Plan Reason for Hospitalization: SBO Discharge Plan: Ryan will discharge home with no new services today. He will f/u with the surgeon and with his PCP. He will continue per his plan of care and transport home in a private vehicle. Patient/Family Education Needs: review of discharge instruction, activity, limitation and plan of care. Discuss ask me three. SDOH Health Related Social Needs: Health related social needs education Health related social needs details NA
--- NOTE | 2025-05-10 13:05 | W.PM.PROGNOT ---
Date of Service Date of service: 05/10/25 Time of Service: 13:05 Assessment and Plan Assessment and plan (1) Crohn's disease of small intestine with intestinal obstruction: Status: Acute Assessment and plan: Patient is a 55-year-old male with known history of Crohn's and stricture of the terminal ileum who presented with worsening abdominal pain. He was admitted to the hospitalist service and an NG tube was placed for nonoperative management. This morning his NG tube was removed and he notes that he has had returned of bowel function. He states that his abdomen feels much better today and he denies nausea, vomiting, and abdominal pain. On exam today he is afebrile and hemodynamically stable. His abdomen is soft, nondistended, and nontender to palpation. Would recommend slow advancement of diet as tolerated. He should continue to follow with colorectal surgery at [facility] as previously intended upon discharge. If failure to resolve this current obstruction with nonoperative management would recommend transfer to [facility] where he can be managed by colorectal and GI. (2) Crohn's disease: Status: Chronic Subjective Subjective Interval history since last seen: He notes that he is doing much better this morning. He states that he is passing flatus and having 2 small bowel movements. He notes he had 1 episode of abdominal pain prior to passing flatus but this is since resolved. He denies any nausea and vomiting. He notes that he is hungry this morning. He also denies fevers, chills, chest pain, shortness of breath. Exam Narrative Exam Narrative: General: Well appearing, no acute distress. Skin: Good turgor, no visible rashes or lesion HEENT: Normocephalic, atraumatic CV: Regular rate Lungs: Bilateral equal chest rise, non-labored breathin Abdomen: Soft, non-tender, non-distended, no rebound or guarding Extremities: Warm, well perfused Neurologic: No focal deficits Psychiatric: Alert and oriented, normal mood and affect Objective Last Vital Signs Temp 36.6 C 05/10/25 11:10 Pulse 77 05/10/25 11:10 Resp 16 05/10/25 11:10 BP 145/95 H 05/10/25 11:10 Pulse Ox 97 05/10/25 11:10 Laboratory Results - last 24 hr 05/10/25 06:12 WBC 6.64 RBC 4.29 L Hgb 13.1 L D Hct 39.5 L MCV 92 D MCH 30.5 MCHC 33.2 RDW 12.7 Plt Count 196 MPV 10.4 Sodium 137 Potassium 3.9 Chloride 102 Carbon Dioxide 26.5 Anion Gap 8.5 BUN 17 Creatinine 0.8 Est GFR (CKD-EPI 2020) 105.17 Glucose 121 H Calcium 7.9 L Magnesium 1.8 PAWSS Have you Been Recently Intoxicated or Drunk Within the Last 30 days?: No Have you Ever Experienced Previous Episodes of Alcohol Withdrawal?: No Have you ever Experienced Withdrawal Seizures?: No Have you ever Experienced Delirium Tremens(DT)s?: No Have you ever undergone Alcohol Rehabilitation Treatment (i.e, inpt ot outpatient treatment programs)?: No Have you ever Experienced Blackouts?: No Have you ever Combined Alcohol with other Downers within the last 90 days?: No Have you ever Combined Alcohol with any other Substance of Abuse during the last 90 days?: No Positive Blood Alcohol level on Presentation? [PCS.BAL]: No Evidence of Increased Autonomic Activity (i.e. HR>120, tremor, sweating, agitation, nausea)?: No Result: 0 Time Spent with Patient Time Spent with Patient: <25 minutes Time was spent: preparing to see the patient(eg.review tests), obtaining and/or reviewing separately otained hiistory, indepentently interpreting results and counseling the patient
--- NOTE | 2025-05-10 14:39 | DSE_ITS ---
Date of service: 05/10/25 Time of Service: 14:00 DS: Diagnosis Discharge Diagnosis (1) Crohn's disease of small intestine with intestinal obstruction: Status: Acute Asessment and Plan: - Crohn diagnosed 18 years ago - Last remicade dose May 03 - Patient presented with similar symptoms in December 2024 - Subsequently was diagnosed with stricture between his small and large intestine and was post to meet with [facility] colorectal surgery however, began to have abdominal pain and presented to an [facility] - Abdominal CT and bedside ultrasound both confirm small bowel obstruction - Ongoing abdominal discomfort NG tube was placed upon arrival to MedSurg unit, will remain on low intermittent suction as per general surgery recommendations - Significant improvement overnight. - General surgery evaluated patient, advised followup at [facility] as previously planned Discharge Plan Disposition Patient Disposition: Home Condition: Fair Discharge Details Reason For Visit: SBO Admit Date/Time: 05/09/25 10:28 Admit Provider: Tiago Rangel Attending Provider: Tiago Rangel Primary Care Provider: Joe Larsen Hospital Course Hospital Course: Thierry Ruth is a 55 year old man presenting May 09 with abdominal pain, nausea and vomiting with known ileocecal stricture in the setting of Crohn disease. He had been on his way to his colorectal appointment at [facility] but had to divert due to intolerable symptoms. He was admitted and decompressed wi th nasogastric tube and improved overnight. General surgery evaluated him and advised him to follow up with [facility] as soon as possible. He is tolerating liquids and passing flatus and at this time he is safe to return home. Home Meds and New Rx's Prescriptions: No Action infliximab [Remicade] 100 mg Recon Soln 1,100 mg IV Q30D hydromorphone [Dilaudid] 2 mg tablet 2 mg PO Q6H PRNQty: 7 0RF multivitamin Tablet 1 tab PO DAILY vitamin B complex [B-Complex] Tablet 1 tab PO DAILY Discharge Instructions Stand Alone Forms: Nursing Discharge Form Referrals: Joe Larsen [Primary Care Provider, Medicine] Referral Note: PCP will give you a call to set up a follow up appointment. If you don't hear from them, please give them a call. Activity:: Activity as Tolerated Equipment/Supplies:: No Equipment Needed Diet:: As Tolerated Discharge Orders Discharge Orders: Discharge Order (Routine); Ordered 05/10/25 Ordered By: Sai Killian Discharge Data Discharge Date/Time-TO BE ENTERED AT DEPARTURE: 05/10/25 15:11 DS: Summary Time Spent with Patient providing and/or coordinating discharge services: Less than 30 minutes Status at Discharge Functional status at discharge: independent ambulation Overall status at discharge: patient is back to baseline Mental Status: mental status grossly normal Speech and Movement: speech and movement normal Mood: congruent mood Affect: normal affect Quality:SDOH Health Related Social Needs: Health related social needs education Health related social needs details NA Exam Narrative Exam Narrative: General: This is a pleasant, obese man in no distress HEENT: Normocephalic, atraumatic. NGT is out. CV: RRR Resp: CTAB Abd: soft, protruberant, nontender MSK: voluntary motion x4 Neuro: awake, alert, no focal deficits Psych Mental Status: mental status grossly normal Speech and Movement: speech and movement normal Mood: congruent mood Affect: normal affect DS: Data Vitals/I&O Vitals and I&O: Vital Signs Temperature 36.6 C 05/10/25 11:10 Temperature Source Temporal Artery Scan 05/10/25 11:10 Pulse 77 05/10/25 11:10 Pulse Rhythm Regular 05/09/25 13:50 Respiratory Rate 16 05/10/25 11:10 Respiratory Effort Normal 05/09/25 13:50 Respiratory Depth Normal 05/09/25 13:50 Respiratory Pattern Normal 05/09/25 13:50 Blood Pressure 145/95 H 05/10/25 11:10 Blood Pressure Mean 111 05/10/25 11:10 Pulse Oximetry 97 05/10/25 11:10 Oxygen Delivery Method Room Air 05/10/25 11:10 Oxygen Flow Rate 0 05/10/25 11:10 Pain Level 0 05/10/25 11:10 Comment pt asleep 05/10/25 03:06 Intake & Output 05/09/25 05/10/25 05/10/25 23:59 11:59 23:59 Intake Total 1000 / 1000 Output Total 450 / 450 350 / 350 Balance -450 / 570 -350 / 650 1000 / 650 Weight 112.491 kg Intake: IV 1000 / 1000 Output: Gastric Drainage 450 / 450 350 / 350 Right Nare 450 / 450 350 / 350 Other: Urine Color Yellow Yellow Urine Appearance Clear Clear Urine Odor Normal Stool Size Small Stool Characteristics Liquid Mucoid Brown Data Completed and Pending Pending Labs at Discharge: 05/09/25 05/10/25 07:43 06:12 WBC 11.19 H 6.64 RBC 5.02 4.29 L Hgb 15.1 13.1 L D Hct 44.3 39.5 L MCV 88 92 D MCH 30.1 30.5 MCHC 34.1 33.2 RDW 12.5 12.7 Plt Count 228 196 MPV 10.1 10.4 Immature Gran % 0.4 Neutrophils % 74.6 Lymphocytes % 14.4 Monocytes % 9.8 Eosinophils % 0.4 Basophils % 0.4 Nucleated RBC % 0.0 Absolute Neutrophils 8.35 H Absolute Lymphocytes 1.61 Absolute Monocytes 1.10 H Absolute Eosinophils 0.04 Absolute Basophils 0.04 Sodium 133 L 137 Potassium 4.5 3.9 Chloride 99 102 Carbon Dioxide 22.1 26.5 Anion Gap 11.9 H 8.5 BUN 19 H 17 Creatinine 1.0 0.8 Est GFR (CKD-EPI 2020) 89.44 105.17 Glucose 112 H 121 H Calcium 9.1 7.9 L Magnesium 1.8 Total Bilirubin 0.5 AST 20 ALT 32 Alkaline Phosphatase 87 Total Protein 8.5 H Albumin 3.8 Lipase 291 H PFSH All Active Problems (Updated 05/11/25 @ 00:01 by YVONNE GALLEGOS) Obesity (Chronic) Pancreatitis (Chronic) Crohn's disease of small intestine with intestinal obstruction (Acute) Ileitis (Acute) Small bowel obstruction (Acute) Diverticulosis (Acute) Crohn's disease (Chronic) Rotator cuff tear, right (Acute) Shoulder pain (Acute) Social History Smoking/Tobacco Use Status: Current every day Smoking risk assessment performed?: Yes Alcohol Intake: current Alcohol Intake frequency: a few times a week Alcohol type: beer, wine and hard liquor Drug use: Never Substance use type: does not use Housing: house Do you feel safe at home: Yes Do you feel safe in your relationship?: Yes Time Spent with Patient Time Spent with Patient: <45 minutes Time was spent: preparing to see the patient(eg.review tests), obtaining and/or reviewing separately otained hiistory, ordering medications,tests, procedures, referring, communicating with other health nursing care attendant, indepentently interpreting results, counseling the patient and care coordination
== END 2025-05-10 15:11 | disposition home or self-care (01) | DRG 386 ==
LOC: ER 10:31 → MS 13:49
PROVIDERS: Admitting Provider Family Medicine; Emergency Provider Emergency Medicine; PCP Internal Medicine; Responsible Provider Family Medicine; Visit Provider Family Medicine
DX: K50.012 Crohn's disease of small intestine with intestinal obstruction (principal); K86.1 Other chronic pancreatitis; E66.9 Obesity, unspecified; Z68.37 Body mass index [BMI] 37.0-37.9, adult; K57.90 Diverticulosis of intestine, part unspecified, without perforation or abscess without bleeding; F17.210 Nicotine dependence, cigarettes, uncomplicated; Z55.8 Other problems related to education and literacy
CPT/HCPCS: 00123; 36415; 76705; 80048; 80053; 83690; 85027; 96361; 96374; 96375; 96376; 99285; 74177; 83735; 85025; 99223; 99238; J1171; J2405

== ENCOUNTER 2025-06-17 03:27 | Outpatient (RCR) | payer BC, SELFPAY ==
[2025-06-17] MEDS: Normal Saline Flush 10 ML SYR IVP (13:20)
[2025-06-17 13:31] VITALS: BP 132/78; PULSE 72; RESP 18; TEMP 36.8; O2SAT 99
[2025-06-17 13:35] LABS: HCT 42.6 % (40.0-50.0); HGB 14.0 g/dL (13.5-17.5); MCH 29.3 pg (27.0-33.0); MCHC 32.9 % (32.0-36.0); MCV 89 fL (80-95); MPV 10.5 fL (8.0-11.0); Platelet Count 254 10^3/uL (130-400); RBC 4.78 10^6/uL (4.36-5.78); RDW 12.2 % (11.8-14.1); RDW-SD 40.2 fL; WBC 8.55 10^3/uL (4.4-10.8)
[2025-06-17 13:55] LABS: C-Reactive Protein 0.97 mg/dL (<=0.50)
[2025-06-17 13:56] LABS: ALT 19 U/L (10-49); AST 15 U/L (<34); Albumin 4.5 g/dL (3.2-5.0); Alkaline Phosphatase 82 U/L (46-116); Bilirubin, Direct 0.1 mg/dL (<=0.3); Bilirubin, Total 0.40 mg/dL (0.2-1.2); Total Protein 8.3 g/dL (5.7-8.2)
== END 2025-07-17 23:59 | disposition home or self-care (01) ==
LOC: INF 03:27
PROVIDERS: PCP Nurse Practitioner Family; Visit Provider Family Medicine
DX: K50.012 Crohn's disease of small intestine with intestinal obstruction (principal)
CPT/HCPCS: 36415; 80076; 85027; 96365; 86140; J1745